=== PATIENT | male | born 1980 | race Two or more races ===

== ENCOUNTER 2022-01-11 16:50 | Emergency (ER) | payer OTHER, SELFPAY ==
--- NOTE | ~2022-01-11 | XR_ITS ---
EXAMINATION: XR CHEST CLINICAL INFORMATION: Shortness of breath COMPARISON: None TECHNIQUE: Frontal view of the chest was obtained. FINDINGS: No significant abnormality is noted involving the heart, lungs, mediastinum, bony thorax or soft tissues. XR/XR chest 1V IMPRESSION: Unremarkable examination.
[2022-01-11 16:53] VITALS: BP 161/87; PULSE 85; RESP 24; TEMP 37; O2SAT 100; BMI 33.5
--- NOTE | 2022-01-11 17:20 | ED_ITS ---
HPI - Nausea/Vomiting/Diarrhea General Chief complaint: Nausea/Vomiting/Diarrhea <Linda Lozoya NP - Last Filed: 01/11/22 17:21> Stated complaint: Vomiting, SOB, Fatigue <Linda Lozoya NP - Last Filed: 01/11/22 17:21> Time Seen by Provider: 01/11/22 21:54 <Linda Lozoya NP - Last Filed: 01/11/22 17:21> Source: patient and family <Deonte Lara MD - Last Filed: 01/11/22 22:32> Mode of arrival: ambulatory <Deonte Lara MD - Last Filed: 01/11/22 22:32> Limitations: no limitations <Deonte Lara MD - Last Filed: 01/11/22 22:32> History of Present Illness HPI Narrative: 41-year-old male who presents emergency department for evaluation of nausea, vomiting, fatigue, body aches and weakness. Patient states he was feeling fine until this morning when he woke up and had simultaneous vomiting and diarrhea. He states that he had multiple episodes of loose, watery stool with no blood in stool. He states that multiple episodes of vomiting and after vomiting multiple times he did notice some bright red blood in his emesis. He denied fever but states that he did have sweats. He denied shaking chills, rhinorrhea or sore throat. He states the last 2 weeks he has had a cough which is nonproductive. He states he feels short of breath. He states that he feels weak. He does have a history of diabetes and he states that his glucose is usually in the 200 range. The patient has not traveled recently. He states that he was on antibiotics in October for a throat infection. <Deonte Lara MD - Last Filed: 01/11/22 22:32> MD elicited complaint: nausea, vomiting and diarrhea <Deonte Lara MD - Last Filed: 01/11/22 22:32> Onset (ago): day(s) (1) <Deonte Lara MD - Last Filed: 01/11/22 22:32> Description of vomiting: watery, bilious and blood-streaked <Deonte Lara MD - Last Filed: 01/11/22 22:32> Description of diarrhea: watery <Deonte Lara MD - Last Filed: 01/11/22 22:32> Associated nausea: Yes <Deonte Lara MD - Last Filed: 01/11/22 22:32> Associated abdominal pain: Yes <Deonte Lara MD - Last Filed: 01/11/22 22:32> Location of pain: diffuse <Deonte Lara MD - Last Filed: 01/11/22 22:32> Pain consistency: intermittent <Deonte Lara MD - Last Filed: 01/11/22 22:32> Severity: moderate <Deonte Lara MD - Last Filed: 01/11/22 22:32> Quality: aching <Deonte Lara MD - Last Filed: 01/11/22 22:32> Exacerbating factors: eating <Deonte Lara MD - Last Filed: 01/11/22 22:32> Relieving factors: none <Deonte Lara MD - Last Filed: 01/11/22 22:32> Associated symptoms: myalgias, cough, malaise, nausea/vomiting and shortness of breath <Deonte Lara MD - Last Filed: 01/11/22 22:32> Related Data Home medications: Previous Rx's Medication Instructions Recorded ondansetron 4 mg disintegrating 4 mg PO Q6-8H PRN nausea and 01/11/22 tablet vomiting #14 tabs <Linda Lozoya NP - Last Filed: 01/11/22 17:21> Allergies/Adverse reactions: Allergies Allergy/AdvReac Type Severity Reaction Status Date / Time No Known Allergies Allergy Verified 01/11/22 16:53 <Linda Lozoya NP - Last Filed: 01/11/22 17:21> Review of Systems Review of Systems: Yes all other systems are reviewed and are negative <Abhishek Lara MD - Last Filed: 01/11/22 22:32> Gastrointestinal: Gastrointestinal: Reports nausea <Deonte Lara MD - Last Filed: 01/11/22 22:32> [facility] Past Medical History [facility] Narrative: Past medical history: Diabetes mellitus, hypertension, hypercholesterolemia, bipolar disorder, ADHD, PTSD, impulse control disorder auditory hallucinations. Past surgical history: None. Social history: He does smoke cigarettes, 1 pack per day times many years. Denies alcohol use. He occasionally smokes marijuana. <Deonte Lara MD - Last Filed: 01/11/22 22:32> Social History Social History: Social History Advance Directives: No Advance Directives Information Provided: No <Linda Lozoya NP - Last Filed: 01/11/22 17:21> Physical Exam Vital Signs: Vital Signs: Last Vital Signs Temp 98.6 F 01/11/22 16:53 Pulse 85 01/11/22 16:53 Resp 24 H 01/11/22 16:53 BP 161/87 H 01/11/22 16:53 Pulse Ox 100 01/11/22 16:53 O2 Del Method 01/11/22 16:53 BMI result Body Mass Index 33.5 <Linda Lozoya NP - Last Filed: 01/11/22 17:21> Vital Signs: Last Vital Signs Temp 98.6 F 01/11/22 16:53 Pulse 85 01/11/22 16:53 Resp 24 H 01/11/22 16:53 BP 161/87 H 01/11/22 16:53 Pulse Ox 100 01/11/22 16:53 O2 Del Method 01/11/22 16:53 BMI result Body Mass Index 33.5 <Deonte Lara MD - Last Filed: 01/11/22 22:32> Const: General: cooperative and no acute distress <Deonte Lara MD - Last Filed: 01/11/22 22:32> Orientation/consciousness: oriented to person and oriented to place <Deonte Lara MD - Last Filed: 01/11/22 22:32> Limitations: no limitations <Deonte Lara MD - Last Filed: 01/11/22 22:32> HEENT: Head: Yes normal to inspection, Yes normocephalic and Yes atraumatic <Deonte Lara MD - Last Filed: 01/11/22 22:32> Ears: external ears normal <Deonte Lara MD - Last Filed: 01/11/22 22:32> General nose exam: Normal external nose present <Deonte Lara MD - Last Filed: 01/11/22 22:32> Face and sinus: Yes normal facial exam <Deonte Lara MD - Last Filed: 01/11/22 22:32> Mouth: Normal oral and palatal mucosa present <Deonte Lara MD - Last Filed: 01/11/22 22:32> Throat: Yes posterior oropharynx normal <Deonte Lara MD - Last Filed: 01/11/22 22:32> Eyes: General: appearance normal, both eyes and all related structures <Deonte Lara MD - Last Filed: 01/11/22 22:32> Pupils: Equal, round and reactive pupils present <Deonte Lara MD - Last Filed: 01/11/22 22:32> Neck: Neck: Yes normal visual inspection, Yes no lymphadenopathy, Yes trachea midline and Yes supple <Deonte Lara MD - Last Filed: 01/11/22 22:32> Chest: Chest palpation & inspection: normal inspection of the chest and normal palpation of entire chest wall <Deonte Lara MD - Last Filed: 01/11/22 22:32> Resp: Effort & Inspection: normal respiratory effort and able to speak in complete sentences <Deonte Lara MD - Last Filed: 01/11/22 22:32> Auscultation: clear to auscultation bilaterally <Deonte Lara MD - Last Filed: 01/11/22 22:32> Cardio: Rate: regular rate <Deonte Lara MD - Last Filed: 01/11/22 22:32> Rhythm: regular rhythm <Deonte Lara MD - Last Filed: 01/11/22 22:32> Heart sounds: S1 normal heart sound present, S2 normal heart sound present and no murmurs <Deonte Lara MD - Last Filed: 01/11/22 22:32> GI: Inspection: Yes normal to inspection <Deonte Lara MD - Last Filed: 01/11/22 22:32> Palpation (GI): Soft to palpation, Tenderness to palpation present (GI) (Mild diffuse tenderness) and no guarding <Deonte Lara MD - Last Filed: 01/11/22 22:32> Auscultation: normal bowel sounds <Deonte Lara MD - Last Filed: 01/11/22 22:32> : General: Yes no CVA tenderness <Deonte Lara MD - Last Filed: 01/11/22 22:32> Back/Spine/Pelvis: Back: no CVA tenderness <Deonte Lara MD - Last Filed: 01/11/22 22:32> Skin: General skin exam: no rashes or lesions noted <Deonte Lara MD - Last Filed: 01/11/22 22:32> Neuro: General: oriented to person and oriented to place <Deonte Lara MD - Last Filed: 01/11/22 22:32> Cranial nerves: Yes CN's II-XII intact bilaterally and Yes Equal, round and reactive pupils present <Deonte Lara MD - Last Filed: 01/11/22 22:32> Cognition (Neuro): normal cognition <Deonte Lara MD - Last Filed: 01/11/22 22:32> Motor exam (neuro): 5/5 motor strength present throughout <Deonte Lara MD - Last Filed: 01/11/22 22:32> Extrem: General: Yes normal to inspection <Deonte Lara MD - Last Filed: 01/11/22 22:32> Psych: Appearance: grossly normal <Deonte Lara MD - Last Filed: 01/11/22 22:32> Speech and movement: Normal speech and movement present <Deonte Lara MD - Last Filed: 01/11/22 22:32> Affect: normal affect <Deonte Lara MD - Last Filed: 01/11/22 22:32> Attitude: cooperative <Deonte Lara MD - Last Filed: 01/11/22 22:32> Thought process: Normal thought process present <Deonte Lara MD - [facility] t Filed: 01/11/22 22:32> Thought content: Normal thought content present <Deonte Lara MD - Last Filed: 01/11/22 22:32> Course Course Course Narrative: This is a rapid medical exam. Deferred HPI, ROS, PE to primary provider. Flu like symptoms including vomiting/diarrhea x 1 day. Will obtain labs, CXR, covid testing. VSS <Linda Lozoya NP - Last Filed: 01/11/22 17:21> This is a rapid medical exam. Deferred HPI, ROS, PE to primary provider. Flu like symptoms including vomiting/diarrhea x 1 day. Will obtain labs, CXR, covid testing. VSS 2229: Course: 41-year-old male with history of diabetes, hypertension, hyperlipidemia and multiple psychiatric diagnoses who presents emergency department for evaluation of nausea, vomiting, diarrhea, shortness of breath, myalgias and malaise which began this morning. Patient reports multiple episodes of vomiting and diarrhea with occasional blood streaks in his emesis. Patient had diffuse abdominal pain and on exam had diffuse abdominal tenderness. Vital signs did reveal an elevated blood pressure of 161 over so 87 and elevated respiratory rate of 24. Patient's laboratory evaluation did reveal an elevated WBC 09096, low sodium 133, low CO2 18, elevated glucose 296. Patient was given Zofran ODT triage with improvement of symptoms. I gave him a 2nd dose of Zofran ODT 4 mg after my evaluation. I did offer to give the patient IV fluid but he states that he is feeling better and he wants to go home and drink Pedialyte therefore he was prescribe Zofran ODT 4 mg every 8 hours as needed for nausea and vomiting. He was given printed and verbal instructions discharged home. <Deonte Lara MD - Last Filed: 01/11/22 22:32> Medications Administered Discontinued Medications Generic Name Dose Route Start Last Admin Trade Name Freq PRN Reason Stop Dose Admin Ondansetron HCl 4 mg 01/11/22 17:19 01/11/22 17:28 Ondansetron Odt 4 Mg Tab.Rapdis TRANSLINGU 01/11/22 17:20 4 mg ONCE ONE Administration <Linda Lozoya NP - Last Filed: 01/11/22 17:21> Medications Administered Discontinued Medications Generic Name Dose Route Start Last Admin Trade Name Caitlin PRN Reason Stop Dose Admin Ondansetron HCl 4 mg 01/11/22 17:19 01/11/22 17:28 Ondansetron Odt 4 Mg Tab.Rapdis TRANSLINGU 01/11/22 17:20 4 mg ONCE ONE Administration <Deonte Lara MD - Last Filed: 01/11/22 22:32> MDM - Nausea/Vomiting/Diarrhea Lab Data Result diagrams: : 01/11/22 17:19 01/11/22 17:19 <Linda Lozoya NP - Last Filed: 01/11/22 17:21> Labs: Lab Results 01/11/22 01/11/22 Range/Units 17:19 17:19 WBC 16.5 H (4.8-10.8) X10*3/uL RBC 5.53 (4.60-5.80) X10*6/uL Hgb 16.1 (14.0-18.0) g/dl Hct 46.3 (42.0-52.0) % MCV 83.7 (80.0-98.0) fL MCH 29.1 (27.0-33.0) pg MCHC 34.8 (31.0-36.0) g/dl RDW 12.7 (11.0-16.0) % Plt Count 303 (160-400) X10*3/uL MPV 9.7 (9.4-12.4) fL Immature Gran % (Auto) 0.4 (0.0-0.4) % Neut % (Auto) 82.6 H (45-73) % Lymph % (Auto) 13.0 L (20-40) % Roberts % (Auto) 3.5 (2-11) % Eos % (Auto) 0.1 (0-4) % Baso % (Auto) 0.4 (0-2) % Lymph # (Auto) 2.2 (1.2-4.9) X10*3/uL Roberts # (Auto) 0.6 (0.1-1.2) X10*3/uL Eos # (Auto) 0.0 (0.0-0.4) X10*3/uL Baso # (Auto) 0.1 (0.0-0.2) X10*3/uL Abs Immat Gran (auto) 0.07 H (0.00-0.03) X10*3/uL Absolute Neuts (auto) 13.6 H (2.0-8.3) x10*3/uL Absolute Nucleated RBC 0.000 (0.0-0.012) X10*3/uL Nucleated RBC % (auto) 0.0 (0.0-0.2) /100WBC Sodium 133 L (135-145) mmol/L Potassium 3.6 (3.3-5.1) mmol/L Chloride 100 (96-108) mmol/L Carbon Dioxide 18 L (22-29) mmol/L Anion Gap 19 (12-20) BUN 16 (9-16) mg/dL Creatinine 0.97 (0.5-1.4) mg/dL Estim Creat Clear Calc 124.4 Estimated GFR > 60 Random Glucose 296 H (60-115) mg/dL Calcium 10.6 H (8.4-10.2) mg/dL Total Bilirubin 0.8 (0.0-1.0) mg/dL Direct Bilirubin 0.2 (0.0-0.5) mg/dL AST 14 (5-37) U/L ALT 22 (0-40) U/L Alkaline Phosphatase 98 (39-117) U/L Total Protein 8.4 H (6.5-8.0) g/dL Albumin 5.1 H (3.5-5.0) g/dL Lipase 32 (8-78) U/L <Linda Lozoya, [employer] - Last Filed: 01/11/22 17:21> Lab Results 01/11/22 01/11/22 Range/Units 17:19 17:19 WBC 16.5 H (4.8-10.8) X10*3/uL RBC 5.53 (4.60-5.80) X10*6/uL Hgb 16.1 (14.0-18.0) g/dl Hct 46.3 (42.0-52.0) % MCV 83.7 (80.0-98.0) fL MCH 29.1 (27.0-33.0) pg MCHC 34.8 (31.0-36.0) g/dl RDW 12.7 (11.0-16.0) % Plt Count 303 (160-400) X10*3/uL MPV 9.7 (9.4-12.4) fL Immature Gran % (Auto) 0.4 (0.0-0.4) % Neut % (Auto) 82.6 H (45-73) % Lymph % (Auto) 13.0 L (20-40) % Roberts % (Auto) 3.5 (2-11) % Eos % (Auto) 0.1 (0-4) % Baso % (Auto) 0.4 (0-2) % Lymph # (Auto) 2.2 (1.2-4.9) X10*3/uL Roberts # (Auto) 0.6 (0.1-1.2) X10*3/uL Eos # (Auto) 0.0 (0.0-0.4) X10*3/uL Baso # (Auto) 0.1 (0.0-0.2) X10*3/uL Abs Immat Gran (auto) 0.07 H (0.00-0.03) X10*3/uL Absolute Neuts (auto) 13.6 H (2.0-8.3) x10*3/uL Absolute Nucleated RBC 0.000 (0.0-0.012) X10*3/uL Nucleated RBC % (auto) 0.0 (0.0-0.2) /100WBC Sodium 133 L (135-145) mmol/L Potassium 3.6 (3.3-5.1) mmol/L Chloride 100 (96-108) mmol/L Carbon Dioxide 18 L (22-29) mmol/L Anion Gap 19 (12-20) BUN 16 (9-16) mg/dL Creatinine 0.97 (0.5-1.4) mg/dL Estim Creat Clear Calc 124.4 Estimated GFR > 60 Random Glucose 296 H (60-115) mg/dL Calcium 10.6 H (8.4-10.2) mg/dL Total Bilirubin 0.8 (0.0-1.0) mg/dL Direct Bilirubin 0.2 (0.0-0.5) mg/dL AST 14 (5-37) U/L ALT 22 (0-40) U/L Alkaline Phosphatase 98 (39-117) U/L Total Protein 8.4 H (6.5-8.0) g/dL Albumin 5.1 H (3.5-5.0) g/dL Lipase 32 (8-78) U/L <Deonte Lara MD - Last Filed: 01/11/22 22:32> Discharge Plan Discharge Clinical Impression: Viral syndrome, Vomiting and diarrhea <Linda Lozoya NP - Last Filed: 01/11/22 17:21> Patient Disposition: Home, Self-Care <Linda Lozoya NP - Last Filed: 01/11/22 17:21> Instructions: Acute Nausea and Vomiting (ED), Viral Syndrome (ED) <Linda Lozoya NP - Last Filed: 01/11/22 17:21> Additional Instructions: You most likely have a virus that is causing your vomiting and diarrhea. Sometimes food poisoning can cause the symptoms as well. Your blood work is consistent with you being dehydrated. Take Zofran ODT 4 mg pills, 1 pill dissolved in your mouth every 8 hours as needed for nausea and vomiting. Increase your fluid intake, drinks small amounts of fluid frequently to try to stay hydrated. Follow-up with your doctor in 2 days. Please return to the emergency department if your symptoms get worse or if you develop any symptoms that are concerning to you. <Linda Lozoya NP - Last Filed: 01/11/22 17:21> Prescriptions: New ondansetron 4 mg tablet,disintegrating 4 mg PO Q6-8H PRN (Reason: nausea and vomiting) Qty: 14 0RF <Linda Lozoya NP - Last Filed: 01/11/22 17:21>
[2022-01-11 17:23] LABS: MANUAL DIFF FLAG NO
[2022-01-11 17:24] LABS: Basophils Absolute Auto 0.1 X10*3/uL (0.0-0.2); Basophils Percent Auto 0.4 % (0-2); Eosinophils Percent Auto 0.1 % (0-4); Hematocrit 46.3 % (42.0-52.0); Hemoglobin 16.1 g/dl (14.0-18.0); Imm Gran Abs Auto 0.07 X10*3/uL (0.00-0.03); Imm Gran Pct Auto 0.4 % (0.0-0.4); Lymphocytes Absolute Auto 2.2 X10*3/uL (1.2-4.9); Mean Corpuscular HGB Conc 34.8 g/dl (31.0-36.0); Mean Corpuscular Hemoglobin 29.1 pg (27.0-33.0); Mean Corpuscular Volume 83.7 fL (80.0-98.0); Mean Platelet Volume 9.7 fL (9.4-12.4); Monocytes Absolute Auto 0.6 X10*3/uL (0.1-1.2); Monocytes Percent Auto 3.5 % (2-11); Neutrophils Absolute Auto 13.6 x10*3/uL (2.0-8.3); Neutrophils Percent Auto 82.6 % (45-73); Platelet Count 303 X10*3/uL (160-400); Red Blood Count 5.53 X10*6/uL (4.60-5.80); Red Cell Distribution Width 12.7 % (11.0-16.0); White Blood Count 16.5 X10*3/uL (4.8-10.8)
[2022-01-11] MEDS: Ondansetron ODT 4 MG TAB.RAPDIS TRANSLINGU ×2 (17:28→22:32)
--- NOTE | 2022-01-11 17:28 | PC.NURSE ---
pt medicated per order
[2022-01-11 17:41] LABS: Alanine Aminotransferase 22 U/L (0-40); Albumin Level 5.1 g/dL (3.5-5.0); Alkaline Phosphatase 98 U/L (39-117); Anion Gap 19 (12-20); Aspartate Amino Transferase 14 U/L (5-37); Bilirubin Direct 0.2 mg/dL (0.0-0.5); Bilirubin Total 0.8 mg/dL (0.0-1.0); Blood Urea Nitrogen 16 mg/dL (9-16); Calcium 10.6 mg/dL (8.4-10.2); Carbon Dioxide 18 mmol/L (22-29); Chloride 100 mmol/L (96-108); Creatinine Clr Calc Pharmacy 124.4; Estimated Glomerular Filt Rate > 60; Glucose Random 296 mg/dL (60-115); Lipase 32 U/L (8-78); Potassium 3.6 mmol/L (3.3-5.1); Sodium 133 mmol/L (135-145); Total Protein 8.4 g/dL (6.5-8.0)
[2022-01-11 22:22] LABS: Influenza A PCR NEGATIVE (Negative); Influenza B PCR NEGATIVE (Negative); Resp Syncy Virus RNA Qual PCR NEGATIVE (Negative); SARS COV2 PCR INHOUSE NEGATIVE (Negative)
--- NOTE | 2022-01-11 22:41 | PC.NURSE ---
Pt. sitting in recliner chair. Pt. reports feeling better and is joking with his partner. No distress noted. Medicated per MAR and dc'd pt.
== END 2022-01-11 22:44 | disposition home or self-care (01) ==
PROVIDERS: Emergency Provider Emergency Medicine Emergency Medical Services; PCP Nurse Practitioner Family
DX: B34.9 Viral infection, unspecified (principal); R11.2 Nausea with vomiting, unspecified; R19.7 Diarrhea, unspecified; Z20.822 Contact with and (suspected) exposure to COVID-19; E11.9 Type 2 diabetes mellitus without complications; I10 Essential (primary) hypertension; E78.5 Hyperlipidemia, unspecified
CPT/HCPCS: 0241U; 36415; 71045; 80048; 80076; 83690; 85025; 99283

== ENCOUNTER 2023-10-05 22:29 | Emergency (ER) | payer OTHER, SELFPAY ==
[2023-10-05 22:31] VITALS: BP 158/93; PULSE 100; RESP 20; TEMP 37.2; O2SAT 93; BMI 32.4
[2023-10-05 23:05] LABS: MANUAL DIFF FLAG NO
[2023-10-05 23:07] LABS: Basophils Absolute Auto 0.1 X10*3/uL (0.0-0.2); Basophils Percent Auto 0.4 % (0-2); Eosinophils Percent Auto 0.1 % (0-4); Hematocrit 45.8 % (42.0-52.0); Imm Gran Abs Auto 0.07 X10*3/uL (0.00-0.03); Imm Gran Pct Auto 0.4 % (0.0-0.4); Lymphocytes Absolute Auto 1.6 X10*3/uL (1.2-4.9); Lymphocytes Percent Auto 9.2 % (20-40); Mean Corpuscular HGB Conc 34.9 g/dl (31.0-36.0); Mean Corpuscular Hemoglobin 28.7 pg (27.0-33.0); Mean Corpuscular Volume 82.1 fL (80.0-98.0); Mean Platelet Volume 10.2 fL (9.4-12.4); Monocytes Absolute Auto 0.5 X10*3/uL (0.1-1.2); Monocytes Percent Auto 3.1 % (2-11); Neutrophils Absolute Auto 14.7 x10*3/uL (2.0-8.3); Neutrophils Percent Auto 86.8 % (45-73); Platelet Count 284 X10*3/uL (160-400); Red Blood Count 5.58 X10*6/uL (4.60-5.80); Red Cell Distribution Width 12.9 % (11.0-16.0)
[2023-10-05 23:48] LABS: Alanine Aminotransferase 18 U/L (0-40); Alkaline Phosphatase 90 U/L (39-117); Anion Gap 20 (12-20); Aspartate Amino Transferase 12 U/L (5-37); Bilirubin Direct 0.2 mg/dL (0.0-0.5); Bilirubin Total 0.8 mg/dL (0.0-1.0); Blood Urea Nitrogen 15 mg/dL (9-16); Calcium 10.8 mg/dL (8.4-10.2); Carbon Dioxide 22 mmol/L (22-29); Chloride 94 mmol/L (96-108); Creatinine Clr Calc Pharmacy 80.8; Estimated Glomerular Filt Rate 53; Ethanol < 10 mg/dL; Glucose Random 523 mg/dL (60-115); Potassium 3.5 mmol/L (3.3-5.1); Sodium 132 mmol/L (135-145); Total Protein 8.8 g/dL (6.5-8.0)
[2023-10-06 00:06] LABS: COVID-19 Test Negative (Negative); IDNOW Serial# 08D9AD1C; IDNOW Serial# 152EDE1D; Influenza A Negative (Negative); Influenza B2 Negative (Negative)
--- NOTE | 2023-10-06 00:08 | PC.NURSE ---
pt from home, a&ox4, respirations even and unlabored. pt reports increased nausea and vomiting starting this morning with poor PO intake. pt reports he is diabetic but ran out of strips to be able to test sugars at home. pt reports he uses insulin. pt POC 560. aware.
[2023-10-06 00:10] LABS: Glucose, Whole Blood 560 mg/dL (60-115)
--- NOTE | 2023-10-06 00:16 | ED.GENADULT ---
HPI - General Adult General Chief complaint: General Medical Stated complaint: vomiting Time Seen by Provider: 10/06/23 00:10 Source: patient and family Mode of arrival: ambulatory Limitations: no limitations History of Present Illness ED Provider: Dr. Pena HPI narrative: Patient had been vomiting all day and could not hold down anything not even fluids Onset (ago): hour(s) Severity: moderate Related Data Previous Rx's ?Medication ?Instructions ?Recorded ondansetron 4 mg disintegrating 4 mg PO Q6-8H PRN nausea and 01/11/22 tablet vomiting #14 tabs ondansetron 4 mg disintegrating 4 mg PO Q8H 4 days #12 tabs 10/06/23 tablet Allergies Allergy/AdvReac Type Severity Reaction Status Date / Time No Known Allergies Allergy Verified 10/05/23 22:34 Review of Systems Review of Systems: Yes all other systems are reviewed and are negative Neurologic: Denies Sensory deficit (Neuro) [facility], [facility] Social History Social History Alcohol intake: current Alcohol intake frequency: holidays/special occasions only Smoked in Last 30 Days: Yes Use of substances other than those prescribed or required for medical reasons: Yes Substance Use Type: Marijuana Advance Directives: No Advance Directives Information Provided: No Physical Exam ED Vital Signs: Vital Signs - 24 hr 10/05/23 22:31 10/06/23 02:25 Temperature 98.9 F 98.1 F Pulse Rate 100 89 Respiratory Rate 20 16 Blood Pressure 158/93 H 114/67 Pulse Oximetry 93 97 Oxygen Delivery Method Room Air Room Air BMI result Body Mass Index 32.4 Const General: healthy appearing Nutritional Appearance: average body habitus Orientation/consciousness: oriented to person and patient oriented x3 Limitations: no limitations HENMT Other: very dry oral mucosa Head: Yes normal to inspection Ears: external ears normal General nose exam: Normal external nose present Throat: Yes posterior oropharynx normal Eyes General: appearance normal, both eyes and all related structures Neck Neck: Yes normal visual inspection Chest Chest palpation & inspection: normal inspection of the chest Resp Auscultation: clear to auscultation bilaterally Cardio Jugular venous distension: no JVD Rate: regular rate Rhythm: regular rhythm Heart sounds: S1 normal heart sound present and S2 normal heart sound present GI Inspection: Yes normal to inspection Palpation (GI): Soft to palpation, nontender and No hepatosplenomegaly present Auscultation: normal bowel sounds General: Yes no CVA tenderness Back/Spine/Pelvis Back: no CVA tenderness Skin Other: old cutting scars on arms Neuro General: oriented to person and patient oriented x3 Cranial nerves: Yes CN's II-XII intact bilaterally Motor exam (neuro): 5/5 motor strength present throughout Sensory Exam: No Sensory deficit (Neuro) Extrem General: Yes normal to inspection Psych Appearance: grossly normal Course Reevaluation(s) Reevaluation #1: sugar improved patient tolerating liquids will dc home Time: 03:59 Medications Administered Discontinued Medications Generic Name Dose Route Start Last Admin Trade Name Dieterq PRN Reason Stop Dose Admin Sodium Chloride 1,000 mls @ 999 mls/hr 10/06/23 00:15 10/06/23 02:44 Ns IVCONT 10/06/23 02:15 Infused .Q1H1M BENITA Infusion Insulin Human Lispro 10 unit 10/06/23 00:15 10/06/23 00:48 Insulin Lispro 100 Unit/Ml 3 Ml Vial SUBCUT 10/06/23 00:16 10 unit ONCE ONE Administration Insulin Human Lispro 6 unit 10/06/23 02:42 10/06/23 02:50 Insulin Lispro 100 Unit/Ml 3 Ml Vial SUBCUT 10/06/23 02:43 6 unit ONCE ONE Administration Ondansetron HCl 4 mg 10/06/23 00:15 10/06/23 00:48 Ondansetron Hcl 4 Mg/2 Ml Vial IVPUSH 10/06/23 00:16 4 mg ONCE ONE Administration Medical Decision Making Differential Diagnosis Differential Diagnoses: The differential diagnosis associated with the presentation includes (DKA, dehydration, hyperglycemia nonketotic, cyclical vomiting, gastroparesis) Admission/Observation Consideration of admission/observation: Escalation of care including admission/observation considered (upon arrival patient considered for admission) Lab Data MDM Lab Attestation statement: I reviewed the patient's lab results. 10/05/23 22:58 10/05/23 22:58 Labs: Lab Results 10/05/23 10/06/23 10/06/23 Range/Units 22:58 00:07 00:57 WBC 17.0 H (4.8-10.8) X10*3/uL RBC 5.58 (4.60-5.80) X10*6/uL Hgb 16.0 (14.0-18.0) g/dl Hct 45.8 (42.0-52.0) % MCV 82.1 (80.0-98.0) fL MCH 28.7 (27.0-33.0) pg MCHC 34.9 (31.0-36.0) g/dl RDW 12.9 (11.0-16.0) % Plt Count 284 (160-400) X10*3/uL MPV 10.2 (9.4-12.4) fL Immature Gran % (Auto) 0.4 (0.0-0.4) % Neut % (Auto) 86.8 H (45-73) % Lymph % (Auto) 9.2 L (20-40) % Andrews % (Auto) 3.1 (2-11) % Eos % (Auto) 0.1 (0-4) % Baso % (Auto) 0.4 (0-2) % Lymph # (Auto) 1.6 (1.2-4.9) X10*3/uL Andrews # (Auto) 0.5 (0.1-1.2) X10*3/uL Eos # (Auto) 0.0 (0.0-0.4) X10*3/uL Baso # (Auto) 0.1 (0.0-0.2) X10*3/uL Abs Immat Gran (auto) 0.07 H (0.00-0.03) X10*3/uL Absolute Neuts (auto) 14.7 H (2.0-8.3) x10*3/uL Absolute Nucleated RBC 0.000 (0.0-0.012) X10*3/uL Nucleated RBC % (auto) 0.0 (0.0-0.2) /100WBC Sodium 132 L (135-145) mmol/L Potassium 3.5 (3.3-5.1) mmol/L Chloride 94 L (96-108) mmol/L Carbon Dioxide 22 (22-29) mmol/L Anion Gap 20 (12-20) BUN 15 (9-16) mg/dL Creatinine 1.44 H (0.5-1.4) mg/dL Estim Creat Clear Calc 80.8 Estimated GFR 53 POC Glucose 560 H* (60-115) mg/dL Random Glucose 523 H* (60-115) mg/dL Calcium 10.8 H (8.4-10.2) mg/dL Total Bilirubin 0.8 (0.0-1.0) mg/dL Direct Bilirubin 0.2 (0.0-0.5) mg/dL AST 12 (5-37) U/L ALT 18 (0-40) U/L Alkaline Phosphatase 90 (39-117) U/L Total Protein 8.8 H (6.5-8.0) g/dL Albumin 5.0 (3.5-5.0) g/dL Urine Color Yellow Urine Appearance Clear Urine pH 5.5 (5.0-9.0) Ur Specific [place] >= 1.030 H (1.005-1.025) Urine Protein 30 (1+) H (Neg-Trace) mg/dL Urine Glucose (UA) >=1000 H (Negative) mg/dL Urine Ketones 80 (Negative) mg/dL Urine Blood Negative (Negative) Urine Nitrite Negative (Negative) Ur Leukocyte Esterase Negative (Negative) Urine RBC 0-2 (0-2) /HPF Urine WBC 0-5 (0-5) /HPF Ur Squamous Epith Cells 0-2 (0-2) /HPF Urine Bacteria None Seen (None Seen) Hyaline Casts 0-2 (0-2) /LPF Urine Opiates Screen Not Detected (Not Detect) Ur Buprenorphine Scrn Not Detected (Not Detect) ng/mL Ur Oxycodone Screen Not Detected (Not Detect) ng/mL Urine Methadone Screen Not Detected (Not Detect) ng/mL Urine Fentanyl Screen Not Detected (Not Detect) Ur Barbiturates Screen Not Detected (Not Detect) Ur Phencyclidine Scrn Not Detected (Not Detect) Ur Amphetamines Screen Not Detected (Not Detect) U Benzodiazepines Scrn Not Detected (Not Detect) Urine Cocaine Screen Not Detected (Not Detect) U Marijuana (THC) Screen POSITIVE H (Not Detect) Ethyl Alcohol < 10 mg/dL COVID-19 (ROHAN) Negative (Negative) COVID-19 Clin Com See Note Influenza Type A (MERARY) Negative (Negative) Influenza Type B (MERARY) Negative (Negative) Influenza A & B Note See Note 10/06/23 10/06/23 10/06/23 Range/Units 01:32 02:06 02:38 WBC (4.8-10.8) X10*3/uL RBC (4.60-5.80) X10*6/uL Hgb (14.0-18.0) g/dl Hct (42.0-52.0) % MCV (80.0-98.0) fL MCH (27.0-33.0) pg MCHC (31.0-36.0) g/dl RDW (11.0-16.0) % Plt Count (160-400) X10*3/uL MPV (9.4-12.4) fL Immature Gran % (Auto) (0.0-0.4) % Neut % (Auto) (45-73) % Lymph % (Auto) (20-40) % Andrews % (Auto) (2-11) % Eos % (Auto) (0-4) % Baso % (Auto) (0-2) % Lymph # (Auto) (1.2-4.9) X10*3/uL Andrews # (Auto) (0.1-1.2) X10*3/uL Eos # (Auto) (0.0-0.4) X10*3/uL Baso # (Auto) (0.0-0.2) X10*3/uL Abs Immat Gran (auto) (0.00-0.03) X10*3/uL Absolute Neuts (auto) (2.0-8.3) x10*3/uL Absolute Nucleated RBC (0.0-0.012) X10*3/uL Nucleated RBC % (auto) (0.0-0.2) /100WBC Sodium (135-145) mmol/L Potassium (3.3-5.1) mmol/L Chloride (96-108) mmol/L Carbon Dioxide (22-29) mmol/L Anion Gap (12-20) BUN (9-16) mg/dL Creatinine (0.5-1.4) mg/dL Estim Creat Clear Calc Estimated GFR POC Glucose 404 H* 343 H 347 H (60-115) mg/dL Random Glucose (60-115) mg/dL Calcium (8.4-10.2) mg/dL Total Bilirubin (0.0-1.0) mg/dL Direct Bilirubin (0.0-0.5) mg/dL AST (5-37) U/L ALT (0-40) U/L Alkaline Phosphatase (39-117) U/L Total Protein (6.5-8.0) g/dL Albumin (3.5-5.0) g/dL Urine Color Urine Appearance Urine pH (5.0-9.0) Ur Specific [place] (1.005-1.025) Urine Protein (Neg-Trace) mg/dL Urine Glucose (UA) (Negative) mg/dL Urine Ketones (Negative) mg/dL Urine Blood (Negative) Urine Nitrite (Negative) Ur Leukocyte Esterase (Negative) Urine RBC (0-2) /HPF Urine WBC (0-5) /HPF Ur Squamous Epith Cells (0-2) /HPF Urine Bacteria (None Seen) Hyaline Casts (0-2) /LPF Urine Opiates Screen (Not Detect) Ur Buprenorphine Scrn (Not Detect) ng/mL Ur Oxycodone Screen (Not Detect) ng/mL Urine Methadone Screen (Not Detect) ng/mL Urine Fentanyl Screen (Not Detect) Ur Barbiturates Screen (Not Detect) Ur Phencyclidine Scrn (Not Detect) Ur Amphetamines Screen (Not Detect) U Benzodiazepines Scrn (Not Detect) Urine Cocaine Screen (Not Detect) U Marijuana (THC) Screen (Not Detect) Ethyl Alcohol mg/dL COVID-19 (ROHAN) (Negative) COVID-19 Clin Com Influenza Type A (MERARY) (Negative) Influenza Type B (MERARY) (Negative) Influenza A & B Note 10/06/23 10/06/23 Range/Units 03:13 03:40 WBC (4.8-10.8) X10*3/uL RBC (4.60-5.80) X10*6/uL Hgb (14.0-18.0) g/dl Hct (42.0-52.0) % MCV (80.0-98.0) fL MCH (27.0-33.0) pg MCHC (31.0-36.0) g/dl RDW (11.0-16.0) % Plt Count (160-400) X10*3/uL MPV (9.4-12.4) fL Immature Gran % (Auto) (0.0-0.4) % Neut % (Auto) (45-73) % Lymph % (Auto) (20-40) % Andrews % (Auto) (2-11) % Eos % (Auto) (0-4) % Baso % (Auto) (0-2) % Lymph # (Auto) (1.2-4.9) X10*3/uL Andrews # (Auto) (0.1-1.2) X10*3/uL Eos # (Auto) (0.0-0.4) X10*3/uL Baso # (Auto) (0.0-0.2) X10*3/uL Abs Immat Gran (auto) (0.00-0.03) X10*3/uL Absolute Neuts (auto) (2.0-8.3) x10*3/uL Absolute Nucleated RBC (0.0-0.012) X10*3/uL Nucleated RBC % (auto) (0.0-0.2) /100WBC Sodium (135-145) mmol/L Potassium (3.3-5.1) mmol/L Chloride (96-108) mmol/L Carbon Dioxide (22-29) mmol/L Anion Gap (12-20) BUN (9-16) mg/dL Creatinine (0.5-1.4) mg/dL Estim Creat Clear Calc Estimated GFR POC Glucose 317 H 282 H (60-115) mg/dL Random Glucose (60-115) mg/dL Calcium (8.4-10.2) mg/dL Total Bilirubin (0.0-1.0) mg/dL Direct Bilirubin (0.0-0.5) mg/dL AST (5-37) U/L ALT (0-40) U/L Alkaline Phosphatase (39-117) U/L Total Protein (6.5-8.0) g/dL Albumin (3.5-5.0) g/dL Urine Color Urine Appearance Urine pH (5.0-9.0) Ur Specific [place] (1.005-1.025) Urine Protein (Neg-Trace) mg/dL Urine Glucose (UA) (Negative) mg/dL Urine Ketones (Negative) mg/dL Urine Blood (Negative) Urine Nitrite (Negative) Ur Leukocyte Esterase (Negative) Urine RBC (0-2) /HPF Urine WBC (0-5) /HPF Ur Squamous Epith Cells (0-2) /HPF Urine Bacteria (None Seen) Hyaline Casts (0-2) /LPF Urine Opiates Screen (Not Detect) Ur Buprenorphine Scrn (Not Detect) ng/mL Ur Oxycodone Screen (Not Detect) ng/mL Urine Methadone Screen (Not Detect) ng/mL Urine Fentanyl Screen (Not Detect) Ur Barbiturates Screen (Not Detect) Ur Phencyclidine Scrn (Not Detect) Ur Amphetamines Screen (Not Detect) U Benzodiazepines Scrn (Not Detect) Urine Cocaine Screen (Not Detect) U Marijuana (THC) Screen (Not Detect) Ethyl Alcohol mg/dL COVID-19 (ROHAN) (Negative) COVID-19 Clin Com Influenza Type A (MERARY) (Negative) Influenza Type B (MERARY) (Negative) Influenza A & B Note Prescription Management I considered prescription management with: Antibiotic (no evidence of UTI) Chronic Conditions Patient?s care impacted by: Diabetes and Hypertension Social Determinants Patient?s care significantly limited by Social Determinants of Health including: Low income Discharge Plan Discharge Clinical Impression: Acute hyperglycemia, Acute dehydration, Vomiting Patient Disposition: Home, Self-Care Instructions: Dehydration (ED), Acute Nausea and Vomiting (ED), Diabetic Hyperglycemia (ED) Prescriptions: New ondansetron 4 mg tablet,disintegrating 4 mg PO Q8H 4 Days Qty: 12 0RF No Action ondansetron 4 mg tablet,disintegrating 4 mg PO Q6-8H PRN (Reason: nausea and vomiting) Qty: 14 0RF Referrals: Physician,Unknown J [Primary Care Provider] - 3 days Print Language: Divehi
[2023-10-06] MEDS: Insulin Lispro 100 UNIT/ML 3 ML VIAL 10 UNIT SUBCUT (00:48)
[2023-10-06] MEDS: ondansetron HCL 4 MG/2 ML VIAL IVPUSH (00:48)
[2023-10-06] MEDS: 0.9 % Sodium Chloride 1,000 ML 999 ML IVCONT ×2 (00:48→01:43)
--- NOTE | 2023-10-06 00:56 | PC.NURSE ---
pt medicated per mar for nausea and medicated with insulin. 20G placed in left forearm.
[2023-10-06 01:05] LABS: Appearance Urine Clear; Color Urine Yellow; Glucose Urine UA >=1000 mg/dL (Negative); Leukocyte Esterase Urine Negative (Negative); Nitrite Urine Negative (Negative); PH 5.5 (5.0-9.0); Specific Gravity - Urine >= 1.030 (1.005-1.025); UMIC TRIGGER UACC YES; Urine Blood Negative (Negative); Urine Ketones 80 mg/dL (Negative); Urine Protein 30 (1+) mg/dL (Neg-Trace)
[2023-10-06 01:09] LABS: Bacteria Urine None Seen (None Seen); Hyaline Casts Urine 0-2 /LPF (0-2); RBC Urine 0-2 /HPF (0-2); Squamous Epithelial Cell Urine 0-2 /HPF (0-2); WBC Urine 0-5 /HPF (0-5)
[2023-10-06 01:19] LABS: Amphetamine Screen Urine Not Detected (Not Detect); Barbiturates, Urine Not Detected (Not Detect); Benzodiazepines Screen Urine Not Detected (Not Detect); Buprenorphine Scr Not Detected (Not Detect); Cannabinoid Screen Urine POSITIVE (Not Detect); Cocaine Screen Urine Not Detected (Not Detect); Fentanyl, urine Not Detected (Not Detect); Methadone Screen, Urine Not Detected (Not Detect); Opiate Screen Urine Not Detected (Not Detect); Oxycodone Screen Urine Not Detected (Not Detect); Phencyclidine Screen Urine Not Detected (Not Detect)
[2023-10-06 01:36] LABS: Glucose, Whole Blood 404 mg/dL (60-115)
--- NOTE | 2023-10-06 02:08 | PC.NURSE ---
pt given PO fluids to attempt a toleration trial at this time. pt tolerating well.
[2023-10-06 02:09] LABS: Glucose, Whole Blood 343 mg/dL (60-115)
[2023-10-06 02:25] VITALS: BP 114/67; PULSE 89; RESP 16; TEMP 36.7; O2SAT 97
[2023-10-06 02:42] LABS: Glucose, Whole Blood 347 mg/dL (60-115)
[2023-10-06] MEDS: Insulin Lispro 100 UNIT/ML 3 ML VIAL 6 UNIT SUBCUT (02:50)
[2023-10-06 03:17] LABS: Glucose, Whole Blood 317 mg/dL (60-115)
[2023-10-06 03:44] LABS: Glucose, Whole Blood 282 mg/dL (60-115)
[2023-10-06 04:15] LABS: Glucose, Whole Blood 258 mg/dL (60-115)
[2023-10-06 04:21] VITALS: BP 161/78; PULSE 96; RESP 14; TEMP 37.2; O2SAT 94
[2023-10-06 04:22] VITALS: BP 161/78; PULSE 96; RESP 14; TEMP 37.2; O2SAT 94
== END 2023-10-06 04:23 | disposition home or self-care (01) ==
PROVIDERS: Emergency Provider Emergency Medicine
DX: R11.2 Nausea with vomiting, unspecified (principal); R73.9 Hyperglycemia, unspecified; E86.0 Dehydration; Z79.899 Other long term (current) drug therapy; Z11.52 Encounter for screening for COVID-19
CPT/HCPCS: 36415; 80048; 80076; 80307; 81001; 82947; 85025; 87502; 87635; 96361; 96374; 99284; J2405

== ENCOUNTER 2023-12-11 09:41 | Inpatient (IN) | payer OTHER, SELFPAY ==
[2023-12-11 09:47] VITALS: BP 158/91; PULSE 98; RESP 20; TEMP 36.6; O2SAT 98; BMI 34.7
[2023-12-11 10:37] LABS: MANUAL DIFF FLAG NO
[2023-12-11 10:40] LABS: Appearance Urine Clear; Color Urine Yellow; Glucose Urine UA >=1000 mg/dL (Negative); Leukocyte Esterase Urine Negative (Negative); Nitrite Urine Negative (Negative); Specific Gravity - Urine >= 1.030 (1.005-1.025); UMIC TRIGGER UACC YES; Urine Blood Negative (Negative); Urine Ketones 40 mg/dL (Negative); Urine Protein Trace mg/dL (Neg-Trace)
[2023-12-11 10:41] LABS: Basophils Absolute Auto 0.1 X10*3/uL (0.0-0.2); Basophils Percent Auto 0.5 % (0-2); Eosinophils Absolute Auto 0.4 X10*3/uL (0.0-0.4); Eosinophils Percent Auto 3.5 % (0-4); Hemoglobin 14.7 g/dl (14.0-18.0); Imm Gran Abs Auto 0.04 X10*3/uL (0.00-0.03); Imm Gran Pct Auto 0.4 % (0.0-0.4); Lymphocytes Absolute Auto 2.3 X10*3/uL (1.2-4.9); Lymphocytes Percent Auto 20.2 % (20-40); Mean Corpuscular HGB Conc 34.2 g/dl (31.0-36.0); Mean Corpuscular Hemoglobin 29.3 pg (27.0-33.0); Mean Corpuscular Volume 85.7 fL (80.0-98.0); Mean Platelet Volume 9.8 fL (9.4-12.4); Monocytes Percent Auto 8.7 % (2-11); Neutrophils Absolute Auto 7.6 x10*3/uL (2.0-8.3); Neutrophils Percent Auto 66.7 % (45-73); Platelet Count 273 X10*3/uL (160-400); Red Blood Count 5.02 X10*6/uL (4.60-5.80); Red Cell Distribution Width 13.2 % (11.0-16.0); White Blood Count 11.3 X10*3/uL (4.8-10.8)
[2023-12-11 10:44] LABS: Bacteria Urine None Seen (None Seen); Hyaline Casts Urine 0-2 /LPF (0-2); RBC Urine 0-2 /HPF (0-2); Squamous Epithelial Cell Urine 0-2 /HPF (0-2); WBC Urine 0-5 /HPF (0-5)
[2023-12-11 10:47] LABS: Lithium < 0.10 mmol/L (0.60-1.20)
[2023-12-11 10:49] LABS: Amphetamine Screen Urine Not Detected (Not Detect); Barbiturates, Urine Not Detected (Not Detect); Benzodiazepines Screen Urine Not Detected (Not Detect); Buprenorphine Scr Not Detected (Not Detect); Cannabinoid Screen Urine POSITIVE (Not Detect); Cocaine Screen Urine Not Detected (Not Detect); Fentanyl, urine Not Detected (Not Detect); Methadone Screen, Urine Not Detected (Not Detect); Opiate Screen Urine Not Detected (Not Detect); Oxycodone Screen Urine Not Detected (Not Detect); Phencyclidine Screen Urine Not Detected (Not Detect)
[2023-12-11 10:58] LABS: Alanine Aminotransferase 22 U/L (0-40); Albumin Level 4.5 g/dL (3.5-5.0); Alkaline Phosphatase 88 U/L (39-117); Anion Gap 18 (12-20); Aspartate Amino Transferase 20 U/L (5-37); Bilirubin Total 0.7 mg/dL (0.0-1.0); Blood Urea Nitrogen 12 mg/dL (9-16); Calcium 9.8 mg/dL (8.4-10.2); Carbon Dioxide 21 mmol/L (22-29); Chloride 100 mmol/L (96-108); Creatinine Clr Calc Pharmacy 89.6; Estimated Glomerular Filt Rate > 60; Ethanol < 10 mg/dL; Glucose Random 440 mg/dL (60-115); Potassium 3.8 mmol/L (3.3-5.1); Sodium 135 mmol/L (135-145)
--- NOTE | 2023-12-11 11:12 | ED.GENADULT ---
HPI - General Adult General Chief complaint: Psychiatric Symptoms Stated complaint: crisis Time Seen by Provider: 12/11/23 11:08 Source: patient Mode of arrival: ambulatory Limitations: no limitations History of Present Illness ED Provider: Kelsie Alegria PA-C HPI narrative: Patient is a 43 year old assigned male at with a history of DM, bipolar disorder, PTSD, and schizophrenia presenting to the emergency department today with auditory hallucinations. Patient states that he has been hearing voices lately telling him to harm himself. Patient denies any dizziness, lightheadedness, abdominal pain, nausea, vomiting, fever, chills, blurry vision, double vision, loss of vision, chest pain, difficulty breathing, shortness of breath, back pain, night sweats, pain with urination, increased urinary frequency, increased urinary urgency, blood in his urine or stool, syncope or a near syncopal episode, recent trauma or falls, bowel incontinence, bladder incontinence, or any other complaints at this time. Onset (ago): day(s) Relieving factors: none Exacerbating factors: none Associated symptoms: denies other symptoms Treatments prior to arrival: none Related Data Home Medications ?Medication ?Instructions ?Recorded ?Confirmed hydrochlorothiazide 25 mg tablet 25 mg PO DAILY 12/11/23 12/11/23 hydroxyzine pamoate 25 mg capsule 25 mg PO BEDTIME 12/11/23 12/11/23 hydroxyzine pamoate 50 mg capsule 100 mg PO BEDTIME 12/11/23 12/11/23 insulin glargine 100 unit/mL (3 40 unit subcut BEDTIME 12/11/23 12/11/23 mL) subcutaneous pen (Lantus Solostar U-100 Insulin) lithium carbonate 300 mg capsule 900 mg PO BEDTIME 12/11/23 12/11/23 Allergies Allergy/AdvReac Type Severity Reaction Status Date / Time No Known Allergies Allergy Verified 12/11/23 09:54 Review of Systems Constitutional: Constitutional: Reports no additional constitutional complaints, Denies chills, Denies fever(s) and Denies night sweats Eyes: Eyes: Reports no additional eye complaints, Denies blurry vision, Denies change in vision, Denies diplopia, Denies eye discharge, Denies loss of vision and Denies eye pain ENT: Denies dizziness Cardiovascular: Cardiovascular: Reports no additional cardiovascular complaints, Denies chest pain, Denies lightheadedness, Denies Loss of Consciousness and Denies dyspnea Respiratory: Respiratory: Reports no additional respiratory complaints and Denies dyspnea Gastrointestinal: Gastrointestinal: Reports no additional gastrointestinal complaints, Denies abdominal pain, Denies melena, Denies hematochezia, Denies change in bowel habits and Denies change in stool character Genitourinary: Genitourinary: Reports no additional male genitourinary complaints, Denies hematuria, Denies oliguria, Denies difficulty urinating, Denies dysuria, Denies urinary frequency, Denies urinary hesitancy, Denies urinary incontinence and Denies urinary urgency Musculoskeletal: Musculoskeletal: Reports no additional musculoskeletal complaints, Denies numbness and Denies tingling Neurologic: Denies dizziness, Denies loss of vision, Denies numbness and Denies tingling Psychiatric: Psychiatric: Reports auditory hallucinations, Denies homicidal ideation and Reports suicidal ideation Endocrine: Endocrine: Reports no additional endocrine complaints Hematologic/Lymphatic: Hematologic/Lymphatic: Reports no additional hematologic/lymphatic complaints Allergic/Immunologic: Allergic/Immunologic: Reports no additional allergic/immunologic complaints PMFSH Past Medical History Attestation statement: The following information was validated with the patient. Source: old records reviewed and nursing notes reviewed Social History Social History Alcohol intake: current Alcohol intake frequency: holidays/special occasions only Smoked in Last 30 Days: Yes Use of substances other than those prescribed or required for medical reasons: Yes Substance Use Type: Marijuana Substance Use Frequency: Chronic Longstanding Advance Directives: No Advance Directives Information Provided: Yes Do you have a plan to hurt others: No Plan Physical Exam ED Vital Signs: Vital Signs - 24 hr 12/11/23 09:47 12/11/23 12:20 Temperature 98 F Pulse Rate 98 Respiratory Rate 20 16 Blood Pressure 158/91 H Pulse Oximetry 98 Oxygen Delivery Method Room Air BMI result Body Mass Index 34.7 Const General: cooperative, no acute distress, alert and awake Nutritional Appearance: well nourished Orientation/consciousness: patient oriented x3 Limitations: no limitations HENMT Head: Yes normal to inspection and Yes atraumatic Ears: hearing grossly normal bilaterally and external ears normal General nose exam: Normal external nose present, no nasal discharge noted and no epistaxis Face and sinus: Yes normal facial exam, No abrasion and No laceration Mouth: Normal oral and palatal mucosa present, no drooling and no muffled voice Eyes General: appearance normal, both eyes and all related structures Periorbital: periorbital findings normal Eyelids: Yes eyelids normal Conjunctivae: conjunctivae normal Pupils: Equal, round and reactive pupils present EOM: EOMs intact bilaterally Neck Neck: Yes normal visual inspection, Yes full ROM and Yes no lymphadenopathy Chest Chest palpation & inspection: normal inspection of the chest Resp Effort & Inspection: normal respiratory effort and able to speak in complete sentences GI Inspection: Yes normal to inspection Neuro General: patient oriented x3 and moves all extremities Cranial nerves: Yes Equal, round and reactive pupils present Cognition (Neuro): normal cognition Extrem General: Yes normal to inspection, Yes full ROM and Yes capillary refill normal Psych Appearance: grossly normal Mental Status: mental status grossly normal Affect: normal affect Attitude: cooperative Thought process: Normal thought process present Thought content: Normal thought content present Insight: Good insight present (Psych) Medications Administered Discontinued Medications Generic Name Dose Route Start Last Admin Trade Name Freq PRN Reason Stop Dose Admin Insulin Human Lispro 10 unit 12/11/23 11:28 12/11/23 11:47 Insulin Lispro 100 Unit/Ml 3 Ml Vial SUBCUT 12/11/23 11:29 10 unit ONCE ONE Administration Medical Decision Making Medical Decision Making MDM Narrative: Patient is a 43 year old assigned male at with a history of DM, bipolar disorder, PTSD, and schizophrenia presenting to the emergency department today with auditory hallucinations. Patient's physical exam was unremarkable. Patient's blood work showed an elevated blood sugar but were otherwise unremarkable. Patient's RSV test was positive. Patient's urine showed no acute process. Patient was seen by the CARE Team who recommended inpatient level of care. Patient was given insulin and a sliding scale will be determined by the pharmacy over the next 24 hours. I explained my physical exam findings as well as all test results to the patient. I answered all questions asked by the patient. Patient verbalized agreement and understanding with this treatment plan and admission. Differential Diagnosis Differential Diagnoses: The differential diagnosis associated with the presentation includes Auditory hallucinations Suicidal ideation Admission/Observation Consideration of admission/observation: Escalation of care including admission/observation considered Patient will be admitted for psychiatric care. Consult Healthcare Provider Management of the patient was discussed with: Behavioral Health Provider (spoke to the CARE team as noted in the MDM Rationale portion of this note.) Lab Data MDM Lab Attestation statement: I reviewed the patient's lab results. My interpretation of these results are in the MDM Rationale portion of this note. 12/11/23 10:31 12/11/23 10:31 Labs: Lab Results 12/11/23 12/11/23 12/11/23 Range/Units 10:30 10:31 11:59 WBC 11.3 H (4.8-10.8) X10*3/uL RBC 5.02 (4.60-5.80) X10*6/uL Hgb 14.7 (14.0-18.0) g/dl Hct 43.0 (42.0-52.0) % MCV 85.7 (80.0-98.0) fL MCH 29.3 (27.0-33.0) pg MCHC 34.2 (31.0-36.0) g/dl RDW 13.2 (11.0-16.0) % Plt Count 273 (160-400) X10*3/uL MPV 9.8 (9.4-12.4) fL Immature Gran % (Auto) 0.4 (0.0-0.4) % Neut % (Auto) 66.7 (45-73) % Lymph % (Auto) 20.2 (20-40) % [place] % (Auto) 8.7 (2-11) % Eos % (Auto) 3.5 (0-4) % Baso % (Auto) 0.5 (0-2) % Lymph # (Auto) 2.3 (1.2-4.9) X10*3/uL [place] # (Auto) 1.0 (0.1-1.2) X10*3/uL Eos # (Auto) 0.4 (0.0-0.4) X10*3/uL Baso # (Auto) 0.1 (0.0-0.2) X10*3/uL Abs Immat Gran (auto) 0.04 H (0.00-0.03) X10*3/uL Absolute Neuts (auto) 7.6 (2.0-8.3) x10*3/uL Absolute Nucleated RBC 0.000 (0.0-0.012) X10*3/uL Nucleated RBC % (auto) 0.0 (0.0-0.2) /100WBC Sodium 135 (135-145) mmol/L Potassium 3.8 (3.3-5.1) mmol/L Chloride 100 (96-108) mmol/L Carbon Dioxide 21 L (22-29) mmol/L Anion Gap 18 (12-20) BUN 12 (9-16) mg/dL Creatinine 1.15 (0.5-1.4) mg/dL Estim Creat Clear Calc 89.6 Estimated GFR > 60 POC Glucose 382 H* (60-115) mg/dL Random Glucose 440 H* (60-115) mg/dL Calcium 9.8 D (8.4-10.2) mg/dL Total Bilirubin 0.7 (0.0-1.0) mg/dL AST 20 (5-37) U/L ALT 22 (0-40) U/L Alkaline Phosphatase 88 (39-117) U/L Total Protein 8.0 (6.5-8.0) g/dL Albumin 4.5 (3.5-5.0) g/dL Urine Color Yellow Urine Appearance Clear Urine pH 6.0 (5.0-9.0) Ur Specific [place] >= 1.030 H (1.005-1.025) Urine Protein Trace (Neg-Trace) mg/dL Urine Glucose (UA) >=1000 H (Negative) mg/dL Urine Ketones 40 (Negative) mg/dL Urine Blood Negative (Negative) Urine Nitrite Negative (Negative) Ur Leukocyte Esterase Negative (Negative) Urine RBC 0-2 (0-2) /HPF Urine WBC 0-5 (0-5) /HPF Ur Squamous Epith Cells 0-2 (0-2) /HPF Urine Bacteria None Seen (None Seen) Hyaline Casts 0-2 (0-2) /LPF Urine Opiates Screen Not Detected (Not Detect) Ur Buprenorphine Scrn Not Detected (Not Detect) ng/mL Ur Oxycodone Screen Not Detected (Not Detect) ng/mL Urine Methadone Screen Not Detected (Not Detect) ng/mL Urine Fentanyl Screen Not Detected (Not Detect) Ur Barbiturates Screen Not Detected (Not Detect) Ur Phencyclidine Scrn Not Detected (Not Detect) Ur Amphetamines Screen Not Detected (Not Detect) U Benzodiazepines Scrn Not Detected (Not Detect) [place] < 0.10 L (0.60-1.20) mmol/L Urine Cocaine Screen Not Detected (Not Detect) U Marijuana (THC) Screen POSITIVE H (Not Detect) Ethyl Alcohol < 10 mg/dL Influenza Type A (PCR) (Negative) Influenza Type B (PCR) (Negative) RSV RNA Qual (PCR) (Negative) SARS-CoV-2 RNA (RT-PCR) (Negative) 12/11/23 12/11/23 12/11/23 Range/Units 12:08 12:09 13:17 WBC (4.8-10.8) X10*3/uL RBC (4.60-5.80) X10*6/uL Hgb (14.0-18.0) g/dl Hct (42.0-52.0) % MCV (80.0-98.0) fL MCH (27.0-33.0) pg MCHC (31.0-36.0) g/dl RDW (11.0-16.0) % Plt Count (160-400) X10*3/uL MPV (9.4-12.4) fL Immature Gran % (Auto) (0.0-0.4) % Neut % (Auto) (45-73) % Lymph % (Auto) (20-40) % [place] % (Auto) (2-11) % Eos % (Auto) (0-4) % Baso % (Auto) (0-2) % Lymph # (Auto) (1.2-4.9) X10*3/uL [place] # (Auto) (0.1-1.2) X10*3/uL Eos # (Auto) (0.0-0.4) X10*3/uL Baso # (Auto) (0.0-0.2) X10*3/uL Abs Immat Gran (auto) (0.00-0.03) X10*3/uL Absolute Neuts (auto) (2.0-8.3) x10*3/uL Absolute Nucleated RBC (0.0-0.012) X10*3/uL Nucleated RBC % (auto) (0.0-0.2) /100WBC Sodium (135-145) mmol/L Potassium (3.3-5.1) mmol/L Chloride (96-108) mmol/L Carbon Dioxide (22-29) mmol/L Anion Gap (12-20) BUN (9-16) mg/dL Creatinine (0.5-1.4) mg/dL Estim Creat Clear Calc Estimated GFR POC Glucose 273 H (60-115) mg/dL Random Glucose (60-115) mg/dL Calcium (8.4-10.2) mg/dL Total Bilirubin (0.0-1.0) mg/dL AST (5-37) U/L ALT (0-40) U/L Alkaline Phosphatase (39-117) U/L Total Protein (6.5-8.0) g/dL Albumin (3.5-5.0) g/dL Urine Color Urine Appearance Urine pH (5.0-9.0) Ur Specific [place] (1.005-1.025) Urine Protein (Neg-Trace) mg/dL Urine Glucose (UA) (Negative) mg/dL Urine Ketones (Negative) mg/dL Urine Blood (Negative) Urine Nitrite (Negative) Ur Leukocyte Esterase (Negative) Urine RBC (0-2) /HPF Urine WBC (0-5) /HPF Ur Squamous Epith Cells (0-2) /HPF Urine Bacteria (None Seen) Hyaline Casts (0-2) /LPF Urine Opiates Screen (Not Detect) Ur Buprenorphine Scrn (Not Detect) ng/mL Ur Oxycodone Screen (Not Detect) ng/mL Urine Methadone Screen (Not Detect) ng/mL Urine Fentanyl Screen (Not Detect) Ur Barbiturates Screen (Not Detect) Ur Phencyclidine Scrn (Not Detect) Ur Amphetamines Screen (Not Detect) U Benzodiazepines Scrn (Not Detect) [place] < 0.10 L (0.60-1.20) mmol/L Urine Cocaine Screen (Not Detect) U Marijuana (THC) Screen (Not Detect) Ethyl Alcohol mg/dL Influenza Type A (PCR) NEGATIVE (Negative) Influenza Type B (PCR) NEGATIVE (Negative) RSV RNA Qual (PCR) POSITIVE A (Negative) SARS-CoV-2 RNA (RT-PCR) NEGATIVE (Negative) Critical Care Time Critical Care Time Critical Care Time: Yes Total Critical Care Time: 45 Attestation: I spent 45 minutes of Critical Care Time with this patient. This does not include time spent on separately reported billable procedures. Discharge Plan Discharge Clinical Impression: Suicidal ideation Patient Disposition: Still a Patient Prescriptions: No Action hydroxyzine pamoate 50 mg capsule 100 mg PO BEDTIME lithium carbonate 300 mg capsule 900 mg PO BEDTIME hydrochlorothiazide 25 mg tablet 25 mg PO DAILY hydroxyzine pamoate 25 mg capsule 25 mg PO BEDTIME insulin glargine [Lantus Solostar U-100 Insulin] 100 unit/mL (3 mL) insulin pen 40 unit subcut BEDTIME Patient Comments: patient reports he has only taken 40 units at bedtime Interventions: [place]-Suicide Risk Severity Scale Last Done: 12/11/23 12:10 Print Language: Martiniquais
--- NOTE | 2023-12-11 11:27 | PC.NURSE ---
Assumed care of patient at 1045, patient appears to be in no apparent distress this am, calm and cooperative, aware of plan of care for med clearance and CARE team jaime
[2023-12-11] MEDS: Insulin Lispro 100 UNIT/ML 3 ML VIAL 10 UNIT SUBCUT (11:47)
[2023-12-11 12:02] LABS: Glucose, Whole Blood 382 mg/dL (60-115)
--- NOTE | 2023-12-11 12:05 | PC.NURSE ---
patient reports he has been having homicidal ideation and paranoia over the past month since stopping his medications. pt reports he was on [place] and quite a few other medications but stopped taking them because he ran out of the prescription and could not find anyone to refill them. He reports he feels like people are out to get him and it makes him nervous. Patient is calm and cooperative, help seeking. Patient also reports he stopped taking his insulin a few months ago as well. Insulin administered per MAR
--- NOTE | 2023-12-11 12:16 | PC.NURSE ---
RE; med rec this RN completed med rec via medical record and speaking with patient. patient reports he stopped taking all medications about 1 month ago. He reports that for his nighttime lantus, he takes 40 units instead of 54 units. Patient also reports he never took his haldol because it made him experience unwanted feelings
[2023-12-11 12:20] VITALS: RESP 16
[2023-12-11 12:25] LABS: Lithium < 0.10 mmol/L (0.60-1.20)
[2023-12-11 13:02] LABS: Influenza A PCR NEGATIVE (Negative); Influenza B PCR NEGATIVE (Negative); Resp Syncy Virus RNA Qual PCR POSITIVE (Negative); SARS COV2 PCR INHOUSE NEGATIVE (Negative)
[2023-12-11 13:21] LABS: Glucose, Whole Blood 273 mg/dL (60-115)
[2023-12-11 15:15] VITALS: BP 154/93; PULSE 85; RESP 20; TEMP 37.7; O2SAT 98
[2023-12-11 18:51] LABS: Glucose, Whole Blood 200 mg/dL (60-115)
[2023-12-11 19:40] VITALS: BP 131/92; PULSE 82; RESP 12; TEMP 37.2; O2SAT 95
[2023-12-11 20:31] LABS: Glucose, Whole Blood 313 mg/dL (60-115)
[2023-12-11] MEDS: Acetaminophen 325 MG TABLET 975 MG PO (20:51)
[2023-12-11] MEDS: Insulin Glargine,Hum.rec.anlog 100 UNIT/ML 10 ML VIAL 10 UNIT SUBCUT (20:51)
[2023-12-11] MEDS: Lithium Carbonate 300 MG CAPSULE PO (20:56)
[2023-12-11] MEDS: hydrOXYzine HCL 25 MG TABLET 125 MG PO (22:15)
[2023-12-12 06:26] VITALS: BP 150/101; PULSE 111; RESP 18; TEMP 36.8; O2SAT 97
--- NOTE | 2023-12-12 07:09 | PC.NURSE ---
Assumed care of patient at 0645, patient appears to be sleeping this am, respirations even and unlabored, no apparent distress at this time. Continue plan of care for inpatient bedsearch
[2023-12-12] MEDS: Lithium Carbonate 300 MG CAPSULE PO (08:40)
[2023-12-12] MEDS: hydroCHLOROthiazide 25 MG TABLET PO (08:40)
[2023-12-12 10:56] LABS: Glucose, Whole Blood 256 mg/dL (60-115)
[2023-12-12] MEDS: Benzonatate 100 MG CAPSULE PO (11:30)
--- NOTE | 2023-12-12 11:34 | PC.NURSE ---
Pt has productive cough with thick green/yellow sputum. Pt provided with Benzonatate per MAR, along with diet madhuri kena, blanket and additional tissues. Pt offers no complaints to this RN at this time
--- NOTE | 2023-12-12 12:40 | PC.NURSE ---
Pt reporting that he needs to use his ankle monitor cbx operator, pt upset that he does not have immediate access to it. this RN educated patient that due to the ligature risk, the cbx operator needs to be kept either in his belongings locker or behind the nurses station. Pt agitated but agreeable to this. This RN also educated the patient that while charging, he will be kept on a one to one watch due to the ligature risk. Pt brushed this RN off stating yeah, just let me charge it . Pt noted to initially connect to the cbx operator but frequently disconnecting and ambulating out of his room. It was noted that patient returned to his room and would not reconnect to the cbx operator. KIERRA VasquezT removed cbx operator from patient's room due to him not using it. Pt made aware that if he needs the cbx operator to just let nursing or tech staff know
--- NOTE | 2023-12-12 13:36 | PC.NURSE ---
Pt adamantly refused to take MD Dennis Lewis aware
--- NOTE | 2023-12-12 13:57 | PC.NURSE ---
This RN spoke with on the phone who confirmed home medications. She reports she is the one that preps his meds for the week and stated that he continues to take Simvistatin 20mg HS, Lisinopril 10mg HS, Prazosin 6mg HS, Hydroxyzine 125 HS, HCTZ 25 daily and lithium 900mg HS. Med rec updated
--- NOTE | 2023-12-12 14:42 | PC.NURSE ---
Pt agitated, speaking on phone with at this time. Pt adamant that his dose for Prazosin is 75mg. This RN verified with and pharmacy that patient's dose is 6mg. Pt refusing to accept this stating that we are fucking up his medications .
--- NOTE | 2023-12-12 14:57 | PHA.MEDREC ---
Pharmacy Consult ? Medication Reconciliation Pharmacy has completed the medication reconciliation. Worked with nurse Alexandra to confirm meds. She spoke to and patient to confirm meds.
[2023-12-12] MEDS: LORazepam 1 MG TABLET 2 MG PO (15:35)
--- NOTE | 2023-12-12 16:04 | PC.NURSE ---
Patient continues to be mildly agitated, willing to take PO Ativan
--- NOTE | 2023-12-12 17:43 | PC.NURSE ---
Pts visitng at this time, no apparent distress noted
--- NOTE | 2023-12-12 19:50 | PC.NURSE ---
PT's visitor was sitting on the bed with pt, bait packerUnique Brewer requested the visitor and pt to separate and for the visitor to sit on the chair not on pt's bed. Visitor stated to her why are things changing now when it's been ok for the last two days? , Daniella?explained policies and apologized for inconsistency. The visitor then made?rude comments towards Unique and moved to the chair by the bed.? Moments later,??the pt and visitor walked to the bathroom.? Pt entered the bathroom and the visitor remained at the door with the door opened watching pt use the bathroom. Unique stood by and noted that staff were available to assist the pt should he need assistance in the bathroom.During that time it was noted that PT's blocking machine operator second to his ankle monitor was in his room plugged into the outlet. Unique attempted to explain policy regarding ligature risk to pt and sitter but Visitor and PT became agitated?with Unique not allowing her to explain and PT yelling from the bathroom saying if probation?comes to get him there was going to be problems. Visitor noted to Unique that he has had it for two days so why can't?he have it? now At that time t/w approached visitors to explain that t/w received? the blocking machine operator second last night after the visitor dropped it off to security on 12/11/23 and that pt was not given the blocking machine operator second during retail shift leader. T/w also explained we were not sure why it was allowed without a sitter but should he need it, we could certainly have a sitter at bedside to allow him? to charge his device. Visitor?and pt continued to be verbally aggressive and questioning t/w and Unique, about the policy. T/W explained that the visit would end if the behavior were to continue. Media Theorist And Author Of placed in locker 5 with the rest of his belongings by Unique.? PT returned to his room with the visitor and continued to be verbally aggressive and threatening from his bedside. PT stating that T/W wasn't medicating him or providing patient care. T/W approached?PT and visitor to discuss any concerns to help resolve issues and to explain medication administration times of 9pm. PT stated to T/W that his medications better not be messed up cause y'all have been fucking with my meds . While this com writer was working with provider and pharmacy to order the rest of the medications verified?during day shift, the pt continued verbal aggression calling t/w a edgart , bitch , and making threats. Security called to POD, Charge nurse notified by Unique. T/W made the decision to end the visit as it was becoming unsafe. Visitor was escorted by security and was out of the pod at 1941. After the visitor was removed pt became immediately?calm and stopped derogatory and verbally aggressive comments. POC obtained. madhuri escudero?requested and provided. Plan of care ongoing?
[2023-12-12 19:52] LABS: Glucose, Whole Blood 411 mg/dL (60-115)
--- NOTE | 2023-12-12 20:05 | PC.NURSE ---
PT making several calls on the unit phone since visitor was escorted off the unit. While on the phone, pt yelling loudly, and being verbally aggressive toward staff. PT calling t/w bitch and cunt . T/W asked pt to keep it down and respectful as they are other patient trying to sleep right across from him. PT told t/w to mind your own fucking business, I'm not talking to you . shut the fuck up if you ain't my fucking I have no problem hitting you . Observed that every time pt returned to talking on the phone that he becomes increasingly agitated. Security called several of times due to pt's behavior.
--- NOTE | 2023-12-12 20:13 | MHC.EDTECH ---
The first few minutes of my shift I addressed the Patient and guest in 4 to please have the guest sit in the chair not lie or sit in bed with the patient . I was asked why if it any different now when nobody said anything for two days. I tried to explain but was talked over and the situation was escalating so I thanked them and apologized for the inconsistency. From that point on loud rude comments came from the patient and the guest directed to the RN and I non stop. Security was called and charge was told about the situation. While I was in the ED talking to the charge and requesting that a tech come in a check the the patients sugar the guest was asked to leave about 15 minutes early. The patient is now on the phone with the quest that was asked to leave and asked for madhuri kena not from Caren or Emily. Jhonatan gave him the drink. Rude comments continue to come from the patient towards Emily and Viktoria.
[2023-12-12 20:42] VITALS: BP 146/96; PULSE 118; RESP 20; TEMP 36.6; O2SAT 97
--- NOTE | 2023-12-12 21:38 | PC.NURSE ---
While Pt was walking back to his room from the bathroom, T/W politely asked pt to sit in the chair in front of his room to receive medications. PT ignored t/w and noted to Jhonatan Patel, yo my man can you give me my meds, i dont want anything to do with her. senior technical recruiter noted that he is not able to provide pt meds and that pod rn administers medications. pt walked into his room and sat down. It was noted that on the security camera by business technology architectUnique john, that PT removed an item out of his sock and placed it under sheets of paper on his desk. Pt was also noted to be frantically looking around his room and lifting up the mattress as well. Security called to bedside to inspect. Charge nurse notified. It was discovered to be a marker, no contraband found. PT yelling to security that he just had a sheet of paper with numbers on it and accusing tw of having to do with it being lost. Immediately after the exchange in his room, PT placed a call and stated to whomever he was speaking to that This faggot ass cunt had them come into my room because i said I didn't want meds from her . PT yelling and disrupting the milieu. Charge aware.
--- NOTE | 2023-12-12 21:50 | PC.NURSE ---
Addendum entered by Emily Leonard Feli 12/12/23 23:51: This event occurred between [id number] Original Note: PT's visitor was sitting on the bed with pt, Unique Fu requested the visitor and pt to separate and for the visitor to sit on the chair not on pt's bed. Visitor stated to her why are things changing now when it's been ok for the last two days? , Tech?explained policies and apologized for inconsistency. The visitor then made?rude comments towards Unique and moved to the chair by the bed.? Moments later,??the pt and visitor walked to the bathroom.? Pt entered the bathroom and the visitor remained at the door with the door opened watching pt use the bathroom. Unique stood by and noted that staff were available to assist the pt should he need assistance in the bathroom.During that time it was noted that PT's proofreader to his ankle monitor was in his room plugged into the outlet. Unique attempted to explain policy regarding ligature risk to pt and sitter but Visitor and PT became agitated?with Unique not allowing her to explain and PT yelling from the bathroom saying if probation?comes to get him there was going to be problems. Visitor noted to Unique that he has had it for two days so why can't?he have it? now At that time t/w approached visitors to explain that t/w received? the proofreader last night after the visitor dropped it off to security on 12/11/23 and that pt was not given the proofreader during tech brazer tester. T/w also explained we were not sure why it was allowed without a sitter but should he need it, we could certainly have a sitter at bedside to allow him? to charge his device. Visitor?and pt continued to be verbally aggressive and questioning t/w and Unique, about the policy. T/W explained that the visit would end if the behavior were to continue. Labor Arbitrator placed in locker 5 with the rest of his belongings by Uniuqe.? PT returned to his room with the visitor and continued to be verbally aggressive and threatening from his bedside. PT stating that T/W wasn't medicating him or providing patient care. T/W approached?PT and visitor to discuss any concerns to help resolve issues and to explain medication administration times of 9pm. PT stated to T/W that his medications better not be messed up cause y'all have been fucking with my meds . While this assembly instructions writer was working with provider and pharmacy to order the rest of the medications verified?during day shift, the pt continued verbal aggression calling t/w a cunt , bitch , and making threats. Security called to POD, Charge nurse notified by Unique. T/W made the decision to end the visit as it was becoming unsafe. Visitor was escorted by security and was out of the pod at 1941. After the visitor was removed pt became immediately?calm and stopped derogatory and verbally aggressive comments. POC obtained. madhuri escudero?requested and provided. Plan of care ongoing?
[2023-12-12 22:05] VITALS: RESP 22
[2023-12-12] MEDS: Haloperidol Lactate 5 MG/ML VIAL IM (22:05)
[2023-12-12] MEDS: diphenhydrAMINE HCL 50 MG/ML VIAL IM (22:05)
[2023-12-12] MEDS: LORazepam 2 MG/ML VIAL IM (22:07)
--- NOTE | 2023-12-12 22:10 | PC.NURSE ---
D/T PT increase agitation and safety concerns when talking on phone or having visitors, provider Dr. earl notified t/w pt is not allowed vistors or to be on the phone while in the ED. Plan of care ongoing
[2023-12-12 22:20] VITALS: BP 142/101; PULSE 122; RESP 19; TEMP 36.8; O2SAT 96
[2023-12-12] MEDS: Insulin Lispro 100 UNIT/ML 3 ML VIAL SUBCUT (22:20)
[2023-12-12] MEDS: Insulin Glargine,Hum.rec.anlog 100 UNIT/ML 10 ML VIAL 10 UNIT SUBCUT (22:21)
[2023-12-12 22:35] VITALS: RESP 16
[2023-12-12 22:39] VITALS: RESP 16
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
[2023-12-12 22:40] LABS: Glucose, Whole Blood 395 mg/dL (60-115)
--- NOTE | 2023-12-13 05:19 | PC.NURSE ---
Pt awake 2 times to utilize the bathroom. Gait steady. PT requested and provided a linen change and new hospital gown and pants. VSS. Pt back in bed laying quietly in bed. respiration even and unlabored. plan of care ongoing
[2023-12-13 05:21] VITALS: BP 156/95; PULSE 113; RESP 18; TEMP 37.2; O2SAT 97
--- NOTE | 2023-12-13 07:17 | PC.NURSE ---
Assumed care of patient at 0645, patient appears to be sleeping at this time, respirations even and unlabored, no apparent distress is noted. Per cage shift manager staff, pt is no longer allowed visitors or phone calls due to increasing agitation that was consistent with behavior occurring on day shift yesterday with this RN. Pt was restrained due to escalating behavior and threatening staff. Continue plan of care for inpatient bedsearch at this time
[2023-12-13 07:19] VITALS: RESP 16
[2023-12-13 09:48] VITALS: BP 170/109
[2023-12-13] MEDS: Lithium Carbonate 300 MG CAPSULE PO ×2 (09:48→20:36)
[2023-12-13] MEDS: hydroCHLOROthiazide 25 MG TABLET PO (09:48)
[2023-12-13 09:54] LABS: Glucose, Whole Blood 361 mg/dL (60-115)
[2023-12-13] MEDS: Insulin Lispro 100 UNIT/ML 3 ML VIAL SUBCUT ×3 (10:04→20:34)
[2023-12-13 10:05] VITALS: BP 170/109; PULSE 86; RESP 16; TEMP 37.8; O2SAT 99
--- NOTE | 2023-12-13 10:06 | PC.NURSE ---
Pt agreeable to vitals and POC check. pt took morning medications except Haldol without issue. pt is currently eating breakfast, no apparent distress noted
[2023-12-13] MEDS: LORazepam 1 MG TABLET 2 MG PO (10:17)
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
--- NOTE | 2023-12-13 12:18 | PC.NURSE ---
Patient showering without issue at this time. This RN spoke to on the phone who reports she is going to bring in clothes for patient. aware pt cannot have visitors or phone calls at this time
[2023-12-13 16:01] VITALS: BP 120/71; PULSE 102; RESP 16; TEMP 37.7; O2SAT 99
[2023-12-13 16:03] LABS: Glucose, Whole Blood 289 mg/dL (60-115)
--- NOTE | 2023-12-13 18:08 | MHC.CARE ---
Pt was reassessed by the CARE team. Continues to meet criteria for inpatient admission. Will remain in ER pending placement.
[2023-12-13 18:23] LABS: Glucose, Whole Blood 387 mg/dL (60-115)
[2023-12-13 20:25] VITALS: BP 121/86; PULSE 99; RESP 16; TEMP 37.6; O2SAT 97
[2023-12-13 20:26] LABS: Glucose, Whole Blood 373 mg/dL (60-115)
[2023-12-13] MEDS: hydrOXYzine HCL 50 MG TABLET 100 MG PO (20:34)
[2023-12-13] MEDS: Insulin Glargine,Hum.rec.anlog 100 UNIT/ML 10 ML VIAL 10 UNIT SUBCUT (20:34)
[2023-12-13] MEDS: hydrOXYzine HCL 25 MG TABLET PO (20:34)
[2023-12-13] MEDS: Atorvastatin Calcium 10 MG TABLET PO (20:34)
[2023-12-13] MEDS: Prazosin HCL 5 MG, Prazosin HCL 1 MG 6 MG PO (20:36)
--- NOTE | 2023-12-14 03:03 | PC.NURSE ---
Patient awake, calm and cooperative at this time. Vital signs obtained by tech without difficulty.
[2023-12-14 03:28] VITALS: BP 129/76; PULSE 119; RESP 17; TEMP 36.5; O2SAT 98
--- NOTE | 2023-12-14 08:32 | ECG_ITS ---
Test Reason : CHECK QTC Blood Pressure : / mmHG Vent. Rate : 118 BPM Atrial Rate : 118 BPM P-R Int : 144 ms QRS Dur : 072 ms QT Int : 334 ms P-R-T Axes : 048 -25 049 degrees QTc Int : 468 ms Sinus tachycardia Otherwise normal ECG No previous ECGs available Referred By: Generic ED Physician Electronically Signed By:SHELIA MILES MD
[2023-12-14 08:54] LABS: Glucose, Whole Blood 367 mg/dL (60-115)
[2023-12-14] MEDS: Lithium Carbonate 300 MG CAPSULE PO (09:28)
[2023-12-14] MEDS: hydroCHLOROthiazide 25 MG TABLET PO (09:28)
[2023-12-14] MEDS: Insulin Lispro 100 UNIT/ML 3 ML VIAL SUBCUT ×4 (09:29→21:08)
[2023-12-14] MEDS: LORazepam 1 MG TABLET 2 MG PO (09:38)
[2023-12-14 10:37] LABS: Glucose, Whole Blood 379 mg/dL (60-115)
--- NOTE | 2023-12-14 12:14 | PM.EVENT ---
Documented by User: Alejandra Mcgee, WINE PASTEURIZER 12/14/23 15:42 Event Note Date of Service: 12/14/23 Event Note: Boarding/ 24 hour bed search consult. Met with pt and girlfriend to review medications, symptoms. Pt initially guarded, caustic, angry and upset. All they do is play with my medications, push Haldol. I just want to relax . Reports hx of Bipolar Disorder, AH, PTSD, Schizophrenia, paranoid delusions. At times I even think my girlfriend is out to get me. Pt describes family as being his top priority, having an active life and roland with 4 grandchildren, a fifth girlfriend tells him today is on the way. We reviewed his medication list and will make the following changes... --Change Haldol to prn --Risperdal 1 mg bid --Change [place] to 900 mg HS as he has taken it at home. Pt discussed his concerns about medication SE. He is specifically concerned about sexual SE from regime. This was discussed, education was provided. Pt agrees to admission, asks appropriate questions and is fully engaged in discussion as it progressed. He denies SI/HI/ AH at times. Mood remains somewhat labile, caustic and he is reactive at times. Orders written for M5 admission, then we were informed pt was to be admitted to M3. As a result transfer order was changed. Time Spent With Patient Time: Total time managing care of this patient today ____ minutes. Documented by User: Steve Verdin MD 12/17/23 14:58 Event Note Date of Service: 12/17/23
[2023-12-14 12:57] LABS: Glucose, Whole Blood 344 mg/dL (60-115)
[2023-12-14] MEDS: Acetaminophen 325 MG TABLET 650 MG PO (15:02)
[2023-12-14 16:55] LABS: Glucose, Whole Blood 315 mg/dL (60-115)
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
[2023-12-14 20:06] LABS: Glucose, Whole Blood 287 mg/dL (60-115)
[2023-12-14 20:10] VITALS: BP 144/90; PULSE 124; RESP 18; TEMP 37.4; O2SAT 91
[2023-12-14] MEDS: Insulin Glargine,Hum.rec.anlog 100 UNIT/ML 10 ML VIAL 10 UNIT SUBCUT (21:07)
[2023-12-14] MEDS: Lithium Carbonate 300 MG CAPSULE 900 MG PO (21:10)
[2023-12-14] MEDS: hydrOXYzine HCL 25 MG TABLET PO (21:10)
[2023-12-14] MEDS: Prazosin HCL 5 MG, Prazosin HCL 1 MG 6 MG PO (21:11)
[2023-12-14] MEDS: risperiDONE 1 MG TABLET PO (21:11)
[2023-12-14] MEDS: hydrOXYzine HCL 50 MG TABLET 100 MG PO (21:11)
[2023-12-14] MEDS: Atorvastatin Calcium 10 MG TABLET PO (21:12)
[2023-12-15 07:50] VITALS: BP 137/82; PULSE 79; RESP 18; TEMP 37.1; O2SAT 96
[2023-12-15 07:57] LABS: Glucose, Whole Blood 349 mg/dL (60-115)
[2023-12-15] MEDS: risperiDONE 1 MG TABLET PO ×2 (08:23→20:25)
[2023-12-15] MEDS: Insulin Lispro 100 UNIT/ML 3 ML VIAL SUBCUT ×4 (08:23→20:48)
[2023-12-15] MEDS: hydroCHLOROthiazide 25 MG TABLET PO (08:23)
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
[2023-12-15 10:13] LABS: Estimated Average Glucose 283 mg/dL; Hemoglobin A1C 432.1889 umol/L; Hemoglobin A1c % 11.5 % (<6.0)
[2023-12-15 10:27] LABS: Cholesterol 194 mg/dL (<200); HDL Cholesterol 27 mg/dL (>40); LDL Cholesterol Calculated 118 mg/dL (<100); Magnesium 1.8 mg/dL (1.6-2.6); Triglycerides 245 mg/dL (<150)
[2023-12-15 10:45] LABS: Free T4 (Free Thyroxine) 1.62 ng/dL (0.71-1.85); Thyroid Stimulating Hormone 1.11 uIU/mL (0.32-4.0)
[2023-12-15 10:56] LABS: Folate 13.8 ng/mL (> or = 4.0); Vitamin B12 590 pg/mL (200-900)
[2023-12-15 11:39] LABS: Glucose, Whole Blood 447 mg/dL (60-115)
[2023-12-15 16:53] LABS: Glucose, Whole Blood 397 mg/dL (60-115)
[2023-12-15 20:00] VITALS: BP 139/89; PULSE 112; RESP 16; TEMP 36.6; O2SAT 97
[2023-12-15 20:24] LABS: Glucose, Whole Blood 336 mg/dL (60-115)
[2023-12-15] MEDS: Lithium Carbonate 300 MG CAPSULE 900 MG PO (20:24)
[2023-12-15] MEDS: Prazosin HCL 5 MG, Prazosin HCL 1 MG 6 MG PO (20:24)
[2023-12-15] MEDS: hydrOXYzine HCL 25 MG TABLET PO (20:24)
[2023-12-15] MEDS: hydrOXYzine HCL 50 MG TABLET 100 MG PO (20:24)
[2023-12-15] MEDS: Atorvastatin Calcium 10 MG TABLET PO (20:24)
[2023-12-15] MEDS: Insulin Glargine,Hum.rec.anlog 100 UNIT/ML 10 ML VIAL 10 UNIT SUBCUT (20:25)
[2023-12-15] MEDS: LORazepam 0.5 MG TABLET PO (20:48)
[2023-12-16 08:00] VITALS: BP 138/86; PULSE 98; RESP 16; TEMP 37.1; O2SAT 95
[2023-12-16] MEDS: risperiDONE 1 MG TABLET PO ×2 (08:41→21:22)
[2023-12-16] MEDS: hydroCHLOROthiazide 25 MG TABLET PO (08:41)
[2023-12-16 08:54] LABS: Glucose, Whole Blood 322 mg/dL (60-115)
[2023-12-16] MEDS: Insulin Lispro 100 UNIT/ML 3 ML VIAL SUBCUT ×2 (09:00→12:22)
--- NOTE | 2023-12-16 09:12 | P.PNPSI_ITS ---
Subjective Subjective Date of Service: 12/16/23 Reason For Visit: PTSD; mood disorder, SI Subjective Notes: Conditional Voluntary Interim History: Active on unit. social with peers. pt reports he is starting to feel better than when he first came here ; pt stated, I wasn't being honest with my about having auditory hallucinations but I told her I was having them . showered. Pt is no longer on isolation d/t RSV. medication compliant. Binford level to be drawn on 12/19/23; pt aware. Medication Compliance: Yes Side effects from medications: No Attending Groups: Yes Review of Systems Constitutional: Reports as per HPI Eyes: Reports as per HPI Reports as per HPI Cardiovascular: Reports as per HPI Respiratory: Reports as per HPI Gastrointestinal: Reports as per HPI Genitourinary: Reports as per HPI Musculoskeletal: Reports as per HPI Skin/Breast: Reports as per HPI Reports as per HPI Psychiatric: Reports as per HPI Endocrine: Reports as per HPI Hematologic/Lymphatic: Reports as per HPI Allergic/Immunologic: Reports as per HPI Mental Status Exam Mental Status Exam Narrative: Pt is alert and oriented; behavior is cooperative; dressed in casual attire; mood is described as depressed ; eye contact appropriate; Speech is normal rate, volume and not pressured; thought process is organized and goal directed; Thought content is on tx; otherwise pertinent to relevant topics and without any delusional content, paranoid ideations or grandiosity; denies SI/HI/VH/AH. Diagnostics Vital Signs (24Hr): Vital Signs - 24 hr 12/15/23 20:00 12/16/23 08:00 Temperature 97.9 F 98.8 F Pulse Rate 112 H 98 Respiratory Rate 16 16 Blood Pressure 139/89 138/86 Pulse Oximetry 97 95 Oxygen Delivery Method Room Air Room Air BMI result Body Mass Index 34.7 Labs 12/11/23 10:31 12/11/23 10:31 Labs: Laboratory Results - last 48 hr 12/14/23 12/14/23 12/14/23 10:33 12:52 16:50 POC Glucose 379 H* 344 H 315 H Estimat Average Glucose Hemoglobin A1c % Magnesium Triglycerides Cholesterol LDL Cholesterol, Calc HDL Cholesterol Vitamin B12 Folate TSH Free T4 12/14/23 12/15/23 12/15/23 20:01 07:53 09:20 POC Glucose 287 H 349 H Estimat Average Glucose 283 Hemoglobin A1c % 11.5 H Magnesium 1.8 Triglycerides 245 H Cholesterol 194 LDL Cholesterol, Calc 118 H HDL Cholesterol 27 L Vitamin B12 590 Folate 13.8 TSH 1.11 Free T4 1.62 12/15/23 12/15/23 12/15/23 11:34 16:46 20:17 POC Glucose 447 H* 397 H* 336 H Estimat Average Glucose Hemoglobin A1c % Magnesium Triglycerides Cholesterol LDL Cholesterol, Calc HDL Cholesterol Vitamin B12 Folate TSH Free T4 12/16/23 07:51 POC Glucose 322 H Estimat Average Glucose Hemoglobin A1c % Magnesium Triglycerides Cholesterol LDL Cholesterol, Calc HDL Cholesterol Vitamin B12 Folate TSH Free T4 Medications Medications Current Medications Acetaminophen (Acetaminophen 325 Mg Tablet) 650 mg PO Q6H PRN PRN Reason: Headache/Pain Mild Scale (1-3) Al Hydroxide/Mg Hydroxide (Magnesium Hydrox/Alum Hydrox 30 Ml Oral.Susp) 30 ml PO Q6H PRN PRN Reason: Heartburn/Nausea Atorvastatin Calcium (Atorvastatin Calcium 10 Mg Tablet) 10 mg PO BEDTIME BENITA Last Admin: 12/15/23 20:24 Dose: 10 mg Glucose (Glucose Gel 15 Gm Gel..Gram.) 15 gm PO Q15M PRN; Protocol PRN Reason: per Hypoglycemia Standing Ord. Hydrochlorothiazide (Hydrochlorothiazide 25 Mg Tablet) 25 mg PO DAILY BENITA; Protocol Last Admin: 12/16/23 08:41 Dose: 25 mg Hydroxyzine HCl (Hydroxyzine Hcl 25 Mg Tablet) 25 mg PO BEDTIME BENITA Last Admin: 12/15/23 20:24 Dose: 25 mg Hydroxyzine HCl (Hydroxyzine Hcl 50 Mg Tablet) 100 mg PO BEDTIME BENITA Last Admin: 12/15/23 20:24 Dose: 100 mg Insulin Glargine (Insulin Glargine,Hum.Rec.Anlog 100 Unit/Ml 10 Ml Vial) 10 unit SUBCUT BEDTIME BENITA Last Admin: 12/15/23 20:25 Dose: 10 unit Insulin Human Lispro (Insulin Lispro 100 Unit/Ml 3 Ml Vial) 0 unit SUBCUT QIDACHS [facility]; Protocol Last Admin: 12/16/23 09:00 Dose: 8 unit Binford Carbonate (Binford Carbonate 300 Mg Capsule) 900 mg PO BEDTIME BENITA Last Admin: 12/15/23 20:24 Dose: 900 mg Lorazepam (Lorazepam 0.5 Mg Tablet) 0.5 mg PO BID PRN PRN Reason: Anxiety Last Admin: 12/15/23 20:48 Dose: 0.5 mg Magnesium Hydroxide (Milk Of Magnesia 30 Ml Oral.Susp) 30 ml PO DAILY PRN PRN Reason: Constipation Nicotine (Nicotine 21 Mg Patch.Td24) 21 mg TRANSDERMA DAILY PRN PRN Reason: nicotine cravings Nicotine Polacrilex (Nicotine Polacrilex 2 Mg Gum) 4 mg BUCCAL Q2H PRN PRN Reason: Nicotine Cravings Prazosin HCl 5 mg/ Prazosin (HCl 1 mg) 6 mg PO BEDTIME BENITA; Protocol Last Admin: 12/15/23 20:24 Dose: 6 mg Risperidone (Risperidone 1 Mg Tablet) 1 mg PO BID BENITA Last Admin: 12/16/23 08:41 Dose: 1 mg Trazodone HCl (Trazodone Hcl 50 Mg Tablet) 50 mg PO BEDTIME [id number] PRN PRN Reason: Insomnia Allergies Allergies Allergy/AdvReac Type Severity Reaction Status Date / Time No Known Allergies Allergy Verified 12/11/23 09:54 Assessment & Plan Assessment & Plan (1) Bipolar 1 disorder: Status: Acute Code(s): F31.9 - Bipolar disorder, unspecified (2) PTSD (post-traumatic stress disorder): Status: Acute Code(s): F43.10 - Post-traumatic stress disorder, unspecified Plan Patient is a 43-year-old male with history bipolar d/o and PTSD, who self presented to [facility] due to suicidal ideation secondary to increased auditory hallucinations d/t not having access to his psychiatric medications. Plan: CV 15 minute safety checks Continue home medications Started on Risperdal 1 mg p.o. b.i.d. Referral to outpatient therapy and psychiatry Encourage groups Discharge planning 12/15: Active on unit. social with peers. pt reports he is starting to feel better than when he first came here ; pt stated, I wasn't being honest with my about having auditory hallucinations but I told her I was having them . showered. Pt is no longer on isolation d/t RSV. medication compliant. Binford level to be drawn on 12/19/23; pt aware. Continue current tx plan. Patient educated on: diagnosis, medication risk/benefits and therapeutic strategies Reason for continued inpatient stay Substantial Risk for: med/psych decompensation Time Spent With Patient Time: Total time managing care of this patient today _20___ minutes.
[2023-12-16 11:53] LABS: Glucose, Whole Blood 359 mg/dL (60-115)
--- NOTE | 2023-12-16 12:25 | PM.EVENT ---
Event Note Date of Service: 12/16/23 Event Note: pt with persistent high blood sugars on M3 psych floor in the mid to high 300s. his home lantus dose is 40U QHS, currently only taking 10U here. will bring him back to 40U QHS. Time Spent With Patient Time: Total time managing care of this patient today 5 minutes.
[2023-12-16] MEDS: LORazepam 0.5 MG TABLET PO (14:58)
[2023-12-16 16:46] LABS: Glucose, Whole Blood 357 mg/dL (60-115)
[2023-12-16 21:00] VITALS: BP 140/92; PULSE 115; RESP 16; TEMP 36.9; O2SAT 99
[2023-12-16 21:11] LABS: Glucose, Whole Blood 336 mg/dL (60-115)
[2023-12-16] MEDS: Lithium Carbonate 300 MG CAPSULE 900 MG PO (21:21)
[2023-12-16] MEDS: Insulin Glargine,Hum.rec.anlog 100 UNIT/ML 10 ML VIAL 40 UNIT SUBCUT (21:21)
[2023-12-16] MEDS: Prazosin HCL 5 MG, Prazosin HCL 1 MG 6 MG PO (21:22)
[2023-12-16] MEDS: Atorvastatin Calcium 10 MG TABLET PO (21:22)
[2023-12-16] MEDS: hydrOXYzine HCL 50 MG TABLET 100 MG PO (21:22)
[2023-12-16] MEDS: hydrOXYzine HCL 25 MG TABLET PO (21:22)
[2023-12-17 07:00] VITALS: BMI 31.3
[2023-12-17 07:38] LABS: Glucose, Whole Blood 314 mg/dL (60-115)
[2023-12-17 07:40] VITALS: BP 147/91; PULSE 96; RESP 18; TEMP 37.2; O2SAT 98
[2023-12-17 07:53] VITALS: BP 147/91; PULSE 96; RESP 18; TEMP 37.2; O2SAT 98
[2023-12-17] MEDS: hydroCHLOROthiazide 25 MG TABLET PO (08:24)
[2023-12-17] MEDS: risperiDONE 1 MG TABLET PO ×2 (08:24→21:39)
[2023-12-17 12:02] LABS: Glucose, Whole Blood 491 mg/dL (60-115)
[2023-12-17] MEDS: Insulin Lispro 100 UNIT/ML 3 ML VIAL SUBCUT ×3 (12:16→21:39)
--- NOTE | 2023-12-17 12:53 | HO.PSYCHPN ---
Subjective Subjective Date of Service: 12/17/23 Reason For Visit: PTSD; mood disorder, SI Subjective Notes: Conditional Voluntary Interim History: Active on unit. social with peers. pt reports feeling down today; pt stated, there was stuff happening at my house yesterday but I know I need to be here to focused on myself before helping other people . denies SI/HI/VH/AH. attending groups. Medication Compliance: Yes Side effects from medications: No Attending Groups: Yes Review of Systems Constitutional: Reports as per HPI Eyes: Reports as per HPI Reports as per HPI Cardiovascular: Reports as per HPI Respiratory: Reports as per HPI Gastrointestinal: Reports as per HPI Genitourinary: Reports as per HPI Musculoskeletal: Reports as per HPI Skin/Breast: Reports as per HPI Reports as per HPI Psychiatric: Reports as per HPI Endocrine: Reports as per HPI Hematologic/Lymphatic: Reports as per HPI Allergic/Immunologic: Reports as per HPI Mental Status Exam Mental Status Exam Narrative: Pt is alert and oriented; behavior is cooperative; dressed in casual attire; mood is described as depressed ; eye contact appropriate; Speech is normal rate, volume and not pressured; thought process is organized and goal directed; Thought content is on tx; otherwise pertinent to relevant topics and without any delusional content, paranoid ideations or grandiosity; denies SI/HI/VH/AH. Diagnostics Vital Signs (24Hr): Vital Signs - 24 hr 12/16/23 21:00 12/17/23 07:40 12/17/23 07:53 Temperature 98.4 F 98.9 F 98.9 F Pulse Rate 115 H 96 96 Respiratory Rate 16 18 18 Blood Pressure 140/92 H 147/91 H 147/91 H Pulse Oximetry 99 98 98 Oxygen Delivery Method Room Air Room Air Room Air BMI result Body Mass Index 31.3 Labs 12/11/23 10:31 12/11/23 10:31 Labs: Laboratory Results - last 48 hr 12/15/23 12/15/23 12/16/23 16:46 20:17 07:51 POC Glucose 397 H* 336 H 322 H 12/16/23 12/16/23 12/16/23 11:42 16:41 21:07 POC Glucose 359 H* 357 H* 336 H 12/17/23 12/17/23 07:31 11:51 POC Glucose 314 H 491 H* Medications Medications Current Medications Acetaminophen (Acetaminophen 325 Mg Tablet) 650 mg PO Q6H PRN PRN Reason: Headache/Pain Mild Scale (1-3) Al Hydroxide/Mg Hydroxide (Magnesium Hydrox/Alum Hydrox 30 Ml Oral.Susp) 30 ml PO Q6H PRN PRN Reason: Heartburn/Nausea Atorvastatin Calcium (Atorvastatin Calcium 10 Mg Tablet) 10 mg PO BEDTIME BENITA Last Admin: 12/16/23 21:22 Dose: 10 mg Glucose (Glucose Gel 15 Gm Gel..Gram.) 15 gm PO Q15M PRN; Protocol PRN Reason: per Hypoglycemia Standing Ord. Hydrochlorothiazide (Hydrochlorothiazide 25 Mg Tablet) 25 mg PO DAILY BENITA; Protocol Last Admin: 12/17/23 08:24 Dose: 25 mg Hydroxyzine HCl (Hydroxyzine Hcl 25 Mg Tablet) 25 mg PO BEDTIME BENITA Last Admin: 12/16/23 21:22 Dose: 25 mg Hydroxyzine HCl (Hydroxyzine Hcl 50 Mg Tablet) 100 mg PO BEDTIME BENITA Last Admin: 12/16/23 21:22 Dose: 100 mg Insulin Glargine (Insulin Glargine,Hum.Rec.Anlog 100 Unit/Ml 10 Ml Vial) 45 unit SUBCUT BEDTIME BENITA Insulin Human Lispro (Insulin Lispro 100 Unit/Ml 3 Ml Vial) 0 unit SUBCUT QIDACHS [facility]; Protocol Last Admin: 12/17/23 12:16 Dose: 18 unit [place] Carbonate ([place] Carbonate 300 Mg Capsule) 900 mg PO BEDTIME BENITA Last Admin: 12/16/23 21:21 Dose: 900 mg Lorazepam (Lorazepam 0.5 Mg Tablet) 0.5 mg PO BID PRN PRN Reason: Anxiety Last Admin: 12/16/23 14:58 Dose: 0.5 mg Magnesium Hydroxide (Milk Of Magnesia 30 Ml Oral.Susp) 30 ml PO DAILY PRN PRN Reason: Constipation Nicotine (Nicotine 21 Mg Patch.Td24) 21 mg TRANSDERMA DAILY PRN PRN Reason: nicotine cravings Nicotine Polacrilex (Nicotine Polacrilex 2 Mg Gum) 4 mg BUCCAL Q2H PRN PRN Reason: Nicotine Cravings Prazosin HCl 5 mg/ Prazosin (HCl 1 mg) 6 mg PO BEDTIME BENITA; Protocol Last Admin: 12/16/23 21:22 Dose: 6 mg Risperidone (Risperidone 1 Mg Tablet) 1 mg PO BID BENITA Last Admin: 12/17/23 08:24 Dose: 1 mg Trazodone HCl (Trazodone Hcl 50 Mg Tablet) 50 mg PO BEDTIME MRX1 PRN PRN Reason: Insomnia Allergies Allergies Allergy/AdvReac Type Severity Reaction Status Date / Time No Known Allergies Allergy Verified 12/11/23 09:54 Assessment & Plan Assessment & Plan (1) Bipolar 1 disorder: Status: Acute Code(s): F31.9 - Bipolar disorder, unspecified (2) PTSD (post-traumatic stress disorder): Status: Acute Code(s): F43.10 - Post-traumatic stress disorder, unspecified Plan Patient is a 43-year-old male with history bipolar d/o and PTSD, who self presented [place] [facility] due to suicidal ideation secondary to increased auditory hallucinations d/t not having access to his psychiatric medications. Plan: CV 15 minute safety checks Continue home medications Started on Risperdal 1 mg p.o. b.i.d. Referral to outpatient therapy and psychiatry Encourage groups Discharge planning 12/15: Active on unit. social with peers. pt reports he is starting to feel better than when he first came here ; pt stated, I wasn't being honest with my about having auditory hallucinations but I told her I was having them . showered. Pt is no longer on isolation d/t RSV. medication compliant. [place] level to be drawn on 12/19/23; pt aware. Continue current tx plan. 12/16: pt reports feeling down today; pt stated, there was stuff happening at my house yesterday but I know I need to be here to focused on myself before helping other people . denies SI/HI/VH/AH. attending groups. Continue current tx plan. Patient educated on: diagnosis, medication risk/benefits and therapeutic strategies Reason for continued inpatient stay Substantial Risk for: med/psych decompensation Time Spent With Patient Time: Total time managing care of this patient today _20___ minutes.
--- NOTE | 2023-12-17 13:19 | PC.NURSE ---
12/17/23 critical poc of 491 at 1155. [place] texted Dr Linda Zhong at 1158. adjusted sliding scale, results pending.
[2023-12-17 14:04] LABS: Glucose, Whole Blood 404 mg/dL (60-115)
--- NOTE | 2023-12-17 14:32 | PC.NURSE ---
12/17/23 Rechecked POC at 1359 poc was 404. [place] texted Dr. Linda Zhong at 1401. No further interventions ordered at this time.
[2023-12-17 16:59] LABS: Glucose, Whole Blood 274 mg/dL (60-115)
[2023-12-17 20:00] VITALS: BP 148/89; PULSE 98; RESP 18; TEMP 36.6; O2SAT 96
[2023-12-17 21:32] LABS: Glucose, Whole Blood 311 mg/dL (60-115)
[2023-12-17] MEDS: Lithium Carbonate 300 MG CAPSULE 900 MG PO (21:36)
[2023-12-17] MEDS: Atorvastatin Calcium 10 MG TABLET PO (21:39)
[2023-12-17] MEDS: hydrOXYzine HCL 50 MG TABLET 100 MG PO (21:39)
[2023-12-17] MEDS: hydrOXYzine HCL 25 MG TABLET PO (21:39)
[2023-12-17] MEDS: Insulin Glargine,Hum.rec.anlog 100 UNIT/ML 10 ML VIAL 45 UNIT SUBCUT (21:40)
[2023-12-17 21:41] VITALS: BP 135/89
[2023-12-17] MEDS: Prazosin HCL 5 MG, Prazosin HCL 1 MG 6 MG PO (21:41)
[2023-12-18 07:39] VITALS: BP 134/87; PULSE 94; RESP 16; TEMP 36.8; O2SAT 97
[2023-12-18 08:08] LABS: Glucose, Whole Blood 200 mg/dL (60-115)
[2023-12-18 08:23] VITALS: BP 134/87; PULSE 94; RESP 16; TEMP 36.8; O2SAT 99
[2023-12-18] MEDS: Insulin Lispro 100 UNIT/ML 3 ML VIAL SUBCUT ×4 (08:24→22:28)
[2023-12-18] MEDS: risperiDONE 1 MG TABLET PO ×2 (08:24→22:27)
[2023-12-18] MEDS: hydroCHLOROthiazide 25 MG TABLET PO (08:25)
[2023-12-18 11:44] LABS: Glucose, Whole Blood 418 mg/dL (60-115)
--- NOTE | 2023-12-18 12:08 | P.PNPSI_ITS ---
Subjective Subjective Date of Service: 12/18/23 Reason For Visit: PTSD; mood disorder, SI Subjective Notes: Conditional Voluntary Interim History: pt reports feeling better today; pt stated, my visited me yesterday and it went well . denies SI/HI/VH/AH. attending groups. pt reports sleeping well. [place] level to be drawn tomorrow morning. Planning for discharge on Thursday if pt continues to improve. Medication Compliance: Yes Side effects from medications: No Attending Groups: Intermittent Review of Systems Constitutional: Reports as per HPI Eyes: Reports as per HPI Reports as per HPI Cardiovascular: Reports as per HPI Respiratory: Reports as per HPI Gastrointestinal: Reports as per HPI Genitourinary: Reports as per HPI Musculoskeletal: Reports as per HPI Skin/Breast: Reports as per HPI Reports as per HPI Psychiatric: Reports as per HPI Endocrine: Reports as per HPI Hematologic/Lymphatic: Reports as per HPI Allergic/Immunologic: Reports as per HPI Mental Status Exam Mental Status Exam Narrative: Pt is alert and oriented; behavior is cooperative; dressed in casual attire; mood is described as better ; eye contact appropriate; Speech is normal rate, volume and not pressured; thought process is organized and goal directed; Thought content is on tx; otherwise pertinent to relevant topics and without any delusional content, paranoid ideations or grandiosity; denies SI/HI/VH/AH. Diagnostics Vital Signs (24Hr): Vital Signs - 24 hr 12/17/23 20:00 12/17/23 21:41 12/18/23 07:39 Temperature 97.9 F 98.3 F Pulse Rate 98 94 Respiratory Rate 18 16 Blood Pressure 148/89 H 135/89 134/87 Pulse Oximetry 96 97 Oxygen Delivery Method Room Air Room Air 12/18/23 08:23 Temperature 98.3 F Pulse Rate 94 Respiratory Rate 16 Blood Pressure 134/87 Pulse Oximetry 99 Oxygen Delivery Method Room Air BMI result Body Mass Index 31.3 Labs 12/11/23 10:31 12/11/23 10:31 Labs: Laboratory Results - last 48 hr 12/16/23 12/16/23 12/17/23 16:41 21:07 07:31 POC Glucose 357 H* 336 H 314 H 12/17/23 12/17/23 12/17/23 11:51 13:59 16:46 POC Glucose 491 H* 404 H* 274 H 12/17/23 12/18/23 12/18/23 21:28 08:03 11:41 POC Glucose 311 H 200 H 418 H* Medications Medications Current Medications Acetaminophen (Acetaminophen 325 Mg Tablet) 650 mg PO Q6H PRN PRN Reason: Headache/Pain Mild Scale (1-3) Al Hydroxide/Mg Hydroxide (Magnesium Hydrox/Alum Hydrox 30 Ml Oral.Susp) 30 ml PO Q6H PRN PRN Reason: Heartburn/Nausea Atorvastatin Calcium (Atorvastatin Calcium 10 Mg Tablet) 10 mg PO BEDTIME BENITA Last Admin: 12/17/23 21:39 Dose: 10 mg Glucose (Glucose Gel 15 Gm Gel..Gram.) 15 gm PO Q15M PRN; Protocol PRN Reason: per Hypoglycemia Standing Ord. Hydrochlorothiazide (Hydrochlorothiazide 25 Mg Tablet) 25 mg PO DAILY BENITA; Protocol Last Admin: 12/18/23 08:25 Dose: 25 mg Hydroxyzine HCl (Hydroxyzine Hcl 25 Mg Tablet) 25 mg PO BEDTIME BENITA Last Admin: 12/17/23 21:39 Dose: 25 mg Hydroxyzine HCl (Hydroxyzine Hcl 50 Mg Tablet) 100 mg PO BEDTIME BENITA Last Admin: 12/17/23 21:39 Dose: 100 mg Insulin Glargine (Insulin Glargine,Hum.Rec.Anlog 100 Unit/Ml 10 Ml Vial) 45 unit SUBCUT BEDTIME BENITA Last Admin: 12/17/23 21:40 Dose: 45 unit Insulin Human Lispro (Insulin Lispro 100 Unit/Ml 3 Ml Vial) 0 unit SUBCUT QIDACHS [facility]ENITA; Protocol Last Admin: 12/18/23 08:24 Dose: 15 unit [place] Carbonate ([place] Carbonate 300 Mg Capsule) 900 mg PO BEDTIME BENITA Last Admin: 12/17/23 21:36 Dose: 900 mg Lorazepam (Lorazepam 0.5 Mg Tablet) 0.5 mg PO DAILY PRN PRN Reason: Anxiety Magnesium Hydroxide (Milk Of Magnesia 30 Ml Oral.Susp) 30 ml PO DAILY PRN PRN Reason: Constipation Nicotine (Nicotine 21 Mg Patch.Td24) 21 mg TRANSDERMA DAILY PRN PRN Reason: nicotine cravings Nicotine Polacrilex (Nicotine Polacrilex 2 Mg Gum) 4 mg BUCCAL Q2H PRN PRN Reason: Nicotine Cravings Prazosin HCl 5 mg/ Prazosin (HCl 1 mg) 6 mg PO BEDTIME BENITA; Protocol Last Admin: 12/17/23 21:41 Dose: 6 mg Risperidone (Risperidone 1 Mg Tablet) 1 mg PO BID BENITA Last Admin: 12/18/23 08:24 Dose: 1 mg Trazodone HCl (Trazodone Hcl 50 Mg Tablet) 50 mg PO BEDTIME MRX1 PRN PRN Reason: Insomnia Allergies Allergies Allergy/AdvReac Type Severity Reaction Status Date / Time No Known Allergies Allergy Verified 12/11/23 09:54 Assessment & Plan Assessment & Plan (1) Bipolar 1 disorder: Status: Acute Code(s): F31.9 - Bipolar disorder, unspecified (2) PTSD (post-traumatic stress disorder): Status: Acute Code(s): F43.10 - Post-traumatic stress disorder, unspecified Plan Patient is a 43-year-old male with history bipolar d/o and PTSD, who self presented to [facility] [place] [facility] due to suicidal ideation secondary to increased auditory hallucinations d/t not having access to his psychiatric medications. Plan: CV 15 minute safety checks Continue home medications Started on Risperdal 1 mg p.o. b.i.d. Referral to outpatient therapy and psychiatry Encourage groups Discharge planning 12/15: Active on unit. social with peers. pt reports he is starting to feel better than when he first came here ; pt stated, I wasn't being honest with my about having auditory hallucinations but I told her I was having them . showered. Pt is no longer on isolation d/t RSV. medication compliant. [place] level to be drawn on 12/19/23; pt aware. Continue current tx plan. 12/16: pt reports feeling down today; pt stated, there was stuff happening at my house yesterday but I know I need to be here to focused on myself before helping other people . denies SI/HI/VH/AH. attending groups. Continue current tx plan. 12/17: pt reports feeling better today; pt stated, my visited me yesterday and it went well . denies SI/HI/VH/AH. attending groups. pt reports sleeping well. [place] level to be drawn tomorrow morning. Planning for discharge on Thursday if pt continues to improve. Patient educated on: diagnosis, medication risk/benefits and therapeutic strategies Reason for continued inpatient stay Substantial Risk for: med/psych decompensation Time Spent With Patient Time: Total time managing care of this patient today ____ minutes.
--- NOTE | 2023-12-18 12:31 | PM.EVENT ---
Event Note Date of Service: 12/18/23 Event Note: Follow up consult 43-year-old male with poorly controlled diabetes who was admitted to [facility]. Patient's POCs have been persistently elevated during admission. Today patient's POC at 08:00 was 200, doubling to 418 by noon, a pattern indicative of poor adherence to a diabetic diet. Will change patient's glargine dosing to twice a day, 25 units at night and 25 units in the morning in an attempt at better control. However, patient will only achieve glycemic control if he adheres to a diabetic diet and diabetic snacking while on the unit. Time Spent With Patient Time: Total time managing care of this patient today ____ minutes.
[2023-12-18] MEDS: LORazepam 0.5 MG TABLET PO (15:17)
[2023-12-18 16:42] LABS: Glucose, Whole Blood 280 mg/dL (60-115)
[2023-12-18 19:34] VITALS: BP 133/88; PULSE 122; RESP 18; TEMP 35.9; O2SAT 96
[2023-12-18 22:02] LABS: Glucose, Whole Blood 275 mg/dL (60-115)
[2023-12-18] MEDS: hydrOXYzine HCL 50 MG TABLET 100 MG PO (22:25)
[2023-12-18 22:26] VITALS: BP 137/85
[2023-12-18] MEDS: Prazosin HCL 5 MG, Prazosin HCL 1 MG 6 MG PO (22:26)
[2023-12-18] MEDS: Lithium Carbonate 300 MG CAPSULE 900 MG PO (22:26)
[2023-12-18] MEDS: Atorvastatin Calcium 10 MG TABLET PO (22:27)
[2023-12-18] MEDS: hydrOXYzine HCL 25 MG TABLET PO (22:27)
[2023-12-18] MEDS: Insulin Glargine,Hum.rec.anlog 100 UNIT/ML 10 ML VIAL 25 UNIT SUBCUT (22:28)
[2023-12-19 07:20] VITALS: BP 136/75; PULSE 100; RESP 16; TEMP 36.7; O2SAT 98
[2023-12-19 08:13] LABS: Glucose, Whole Blood 190 mg/dL (60-115)
[2023-12-19] MEDS: hydroCHLOROthiazide 25 MG TABLET PO (08:23)
[2023-12-19] MEDS: risperiDONE 1 MG TABLET PO ×2 (08:24→22:24)
[2023-12-19] MEDS: Insulin Lispro 100 UNIT/ML 3 ML VIAL SUBCUT ×4 (08:28→22:21)
[2023-12-19] MEDS: Insulin Glargine,Hum.rec.anlog 100 UNIT/ML 10 ML VIAL 25 UNIT SUBCUT ×2 (08:29→22:21)
[2023-12-19 09:09] LABS: Lithium 0.98 mmol/L (0.60-1.20)
[2023-12-19 09:14] LABS: Anion Gap 15 (12-20); Blood Urea Nitrogen 20 mg/dL (9-16); Carbon Dioxide 31 mmol/L (22-29); Chloride 96 mmol/L (96-108); Creatinine Clr Calc Pharmacy 96.7; Estimated Glomerular Filt Rate > 60; Potassium 3.1 mmol/L (3.3-5.1); Sodium 139 mmol/L (135-145)
[2023-12-19 11:56] LABS: Glucose, Whole Blood 259 mg/dL (60-115)
[2023-12-19] MEDS: Acetaminophen 325 MG TABLET 650 MG PO ×2 (12:29→22:25)
--- NOTE | 2023-12-19 13:13 | HO.PSYCHPN ---
Subjective Subjective Date of Service: 12/19/23 Reason For Visit: PTSD; mood disorder, SI Subjective Notes: Conditional Voluntary Interim History: Pt slept through the night. He reports doing better than when he came in. He denies SI/HI. Looking forward to be discharged soon. Review of Systems Constitutional: Reports as per HPI, Reports no additional constitutional complaints, Denies chills, Denies fever(s) and Denies night sweats Eyes: Reports as per HPI, Reports no additional eye complaints, Denies blurry vision, Denies change in vision, Denies diplopia, Denies eye discharge, Denies loss of vision and Denies eye pain Reports as per HPI and Denies dizziness Cardiovascular: Reports as per HPI, Reports no additional cardiovascular complaints, Denies chest pain, Denies lightheadedness, Denies Loss of Consciousness and Denies dyspnea Respiratory: Reports as per HPI, Reports no additional respiratory complaints and Denies dyspnea Gastrointestinal: Reports as per HPI, Reports no additional gastrointestinal complaints, Denies abdominal pain, Denies melena, Denies hematochezia, Denies change in bowel habits and Denies change in stool character Genitourinary: Reports no additional male genitourinary complaints, Reports as per HPI, Denies hematuria, Denies oliguria, Denies difficulty urinating, Denies dysuria, Denies urinary frequency, Denies urinary hesitancy, Denies urinary incontinence and Denies urinary urgency Musculoskeletal: Reports no additional musculoskeletal complaints, Reports as per HPI, Denies numbness and Denies tingling Skin/Breast: Reports as per HPI Reports as per HPI, Denies dizziness, Denies loss of vision, Denies numbness and Denies tingling Psychiatric: Reports as per HPI, Reports auditory hallucinations, Denies homicidal ideation and Reports suicidal ideation Endocrine: Reports no additional endocrine complaints and Reports as per HPI Hematologic/Lymphatic: Reports no additional hematologic/lymphatic complaints and Reports as per HPI Allergic/Immunologic: Reports no additional allergic/immunologic complaints and Reports as per HPI Mental Status Exam Mental Status Exam Narrative: Pt is alert and oriented; behavior is cooperative; dressed in casual attire; mood is described as better ; eye contact appropriate; Speech is normal rate, volume and not pressured; thought process is organized and goal directed; Thought content is on tx; otherwise pertinent to relevant topics and without any delusional content, paranoid ideations or grandiosity; denies SI/HI/VH/AH. Diagnostics Vital Signs (24Hr): Vital Signs - 24 hr 12/18/23 19:34 12/18/23 22:26 12/19/23 07:20 Temperature 96.7 F L 98.1 F Pulse Rate 122 H 100 Respiratory Rate 18 16 Blood Pressure 133/88 137/85 136/75 Pulse Oximetry 96 98 Oxygen Delivery Method Room Air Room Air 12/19/23 07:20 Temperature 98.1 F Pulse Rate 100 Respiratory Rate 16 Blood Pressure 136/75 Pulse Oximetry 98 Oxygen Delivery Method Room Air BMI result Body Mass Index 31.3 Labs 12/11/23 10:31 12/19/23 08:23 Labs: Laboratory Results - last 48 hr 12/17/23 12/17/23 12/17/23 13:59 16:46 21:28 Sodium Potassium Chloride Carbon Dioxide Anion Gap BUN Creatinine Estim Creat Clear Calc Estimated GFR POC Glucose 404 H* 274 H 311 H Helper 12/18/23 12/18/23 12/18/23 08:03 11:41 16:35 Sodium Potassium Chloride Carbon Dioxide Anion Gap BUN Creatinine Estim Creat Clear Calc Estimated GFR POC Glucose 200 H 418 H* 280 H Helper 12/18/23 12/19/23 12/19/23 21:56 08:01 08:23 Sodium 139 Potassium 3.1 L Chloride 96 Carbon Dioxide 31 H Anion Gap 15 BUN 20 H Creatinine 1.15 Estim Creat Clear Calc 96.7 Estimated GFR > 60 POC Glucose 275 H 190 H Helper 0.98 12/19/23 11:52 Sodium Potassium Chloride Carbon Dioxide Anion Gap BUN Creatinine Estim Creat Clear Calc Estimated GFR POC Glucose 259 H Helper Medications Medications Current Medications Acetaminophen (Acetaminophen 325 Mg Tablet) 650 mg PO Q6H PRN PRN Reason: Headache/Pain Mild Scale (1-3) Al Hydroxide/Mg Hydroxide (Magnesium Hydrox/Alum Hydrox 30 Ml Oral.Susp) 30 ml PO Q6H PRN PRN Reason: Heartburn/Nausea Atorvastatin Calcium (Atorvastatin Calcium 10 Mg Tablet) 10 mg PO BEDTIME PENDING SALE TO [facility] Last Admin: 12/18/23 22:27 Dose: 10 mg Glucose (Glucose Gel 15 Gm Gel..Gram.) 15 gm PO Q15M PRN; Protocol PRN Reason: per Hypoglycemia Standing Ord. Hydrochlorothiazide (Hydrochlorothiazide 25 Mg Tablet) 25 mg PO DAILY [facility]; Protocol Last Admin: 12/19/23 08:23 Dose: 25 mg Hydroxyzine HCl (Hydroxyzine Hcl 25 Mg Tablet) 25 mg PO BEDTIME BENITA Last Admin: 12/18/23 22:27 Dose: 25 mg Hydroxyzine HCl (Hydroxyzine Hcl 50 Mg Tablet) 100 mg PO BEDTIME BENITA Last Admin: 12/18/23 22:25 Dose: 100 mg Insulin Glargine (Insulin Glargine,Hum.Rec.Anlog 100 Unit/Ml 10 Ml Vial) 25 unit SUBCUT BEDTIME BENITA Last Admin: 12/18/23 22:28 Dose: 25 unit Insulin Glargine (Insulin Glargine,Hum.Rec.Anlog 100 Unit/Ml 10 Ml Vial) 25 unit SUBCUT DAILY [facility]END[facility] TO [facility] Last Admin: 12/19/23 08:29 Dose: 25 unit Insulin Human Lispro (Insulin Lispro 100 Unit/Ml 3 Ml Vial) 0 unit SUBCUT QIDACHS [facility]; Protocol Last Admin: 12/19/23 12:03 Dose: 12 unit [place] Carbonate ([place] Carbonate 300 Mg Capsule) 900 mg PO BEDTIME BENITA Last Admin: 12/18/23 22:26 Dose: 900 mg Lorazepam (Lorazepam 0.5 Mg Tablet) 0.5 mg PO DAILY PRN PRN Reason: Anxiety Last Admin: 12/18/23 15:17 Dose: 0.5 mg Magnesium Hydroxide (Milk Of Magnesia 30 Ml Oral.Susp) 30 ml PO DAILY PRN PRN Reason: Constipation Nicotine (Nicotine 21 Mg Patch.Td24) 21 mg TRANSDERMA DAILY PRN PRN Reason: nicotine cravings Nicotine Polacrilex (Nicotine Polacrilex 2 Mg Gum) 4 mg BUCCAL Q2H PRN PRN Reason: Nicotine Cravings Prazosin HCl 5 mg/ Prazosin (HCl 1 mg) 6 mg PO BEDTIME [facility]; Protocol Last Admin: 12/18/23 22:26 Dose: 6 mg Risperidone (Risperidone 1 Mg Tablet) 1 mg PO BID [facility]END[facility] TO [facility] Last Admin: 12/19/23 08:24 Dose: 1 mg Trazodone HCl (Trazodone Hcl 50 Mg Tablet) 50 mg PO BEDTIME MRX1 PRN PRN Reason: Insomnia Allergies Allergies Allergy/AdvReac Type Severity Reaction Status Date / Time No Known Allergies Allergy Verified 12/11/23 09:54 Assessment & Plan Assessment & Plan (1) Bipolar 1 disorder: Status: Acute Code(s): F31.9 - Bipolar disorder, unspecified (2) PTSD (post-traumatic stress disorder): Status: Acute Code(s): F43.10 - Post-traumatic stress disorder, unspecified Plan Patient is a 43-year-old male with history bipolar d/o and PTSD, who self presented to [facility] [place] [facility] due to suicidal ideation secondary to increased auditory hallucinations d/t not having access to his psychiatric medications. Plan: CV 15 minute safety checks Continue home medications Started on Risperdal 1 mg p.o. b.i.d. Referral to outpatient therapy and psychiatry Encourage groups Discharge planning 12/15: Active on unit. social with peers. pt reports he is starting to feel better than when he first came here ; pt stated, I wasn't being honest with my about having auditory hallucinations but I told her I was having them . showered. Pt is no longer on isolation d/t RSV. medication compliant. [place] level to be drawn on 12/19/23; pt aware. Continue current tx plan. 12/16: pt reports feeling down today; pt stated, there was stuff happening at my house yesterday but I know I need to be here to focused on myself before helping other people . denies SI/HI/VH/AH. attending groups. Continue current tx plan. 12/17: pt reports feeling better today; pt stated, my visited me yesterday and it went well . denies SI/HI/VH/AH. attending groups. pt reports sleeping well. [place] level to be drawn tomorrow morning. Planning for discharge on Thursday if pt continues to improve. 12/18 continue tx. Reason for continued inpatient stay Substantial Risk for: inability to function Time Spent With Patient Time: Total time managing care of this patient today ____ minutes.
[2023-12-19 16:50] LABS: Glucose, Whole Blood 206 mg/dL (60-115)
[2023-12-19 19:21] VITALS: BP 154/86; PULSE 105; RESP 18; TEMP 36.7; O2SAT 98
[2023-12-19 21:42] LABS: Glucose, Whole Blood 335 mg/dL (60-115)
[2023-12-19 22:19] VITALS: BP 133/85; PULSE 107; RESP 18; TEMP 36.7; O2SAT 98
[2023-12-19] MEDS: LORazepam 0.5 MG TABLET PO (22:23)
[2023-12-19] MEDS: Prazosin HCL 5 MG, Prazosin HCL 1 MG 6 MG PO (22:24)
[2023-12-19] MEDS: Atorvastatin Calcium 10 MG TABLET PO (22:24)
[2023-12-19] MEDS: hydrOXYzine HCL 50 MG TABLET 100 MG PO (22:24)
[2023-12-19] MEDS: hydrOXYzine HCL 25 MG TABLET PO (22:24)
[2023-12-19] MEDS: Lithium Carbonate 300 MG CAPSULE 900 MG PO (22:25)
[2023-12-20 07:34] VITALS: BP 126/76; PULSE 88; RESP 16; TEMP 37; O2SAT 98
[2023-12-20 07:58] LABS: Glucose, Whole Blood 139 mg/dL (60-115)
[2023-12-20 08:45] VITALS: BP 126/76
[2023-12-20] MEDS: risperiDONE 1 MG TABLET PO ×2 (08:45→21:47)
[2023-12-20] MEDS: Insulin Glargine,Hum.rec.anlog 100 UNIT/ML 10 ML VIAL 25 UNIT SUBCUT ×2 (08:45→21:48)
[2023-12-20] MEDS: hydroCHLOROthiazide 25 MG TABLET PO (08:45)
[2023-12-20 11:59] LABS: Glucose, Whole Blood 249 mg/dL (60-115)
[2023-12-20] MEDS: Insulin Lispro 100 UNIT/ML 3 ML VIAL SUBCUT ×3 (12:07→21:48)
[2023-12-20 16:53] LABS: Glucose, Whole Blood 212 mg/dL (60-115)
[2023-12-20] MEDS: Acetaminophen 325 MG TABLET 650 MG PO (18:52)
--- NOTE | 2023-12-20 20:00 | P.PNPSI_ITS ---
Subjective Subjective Date of Service: 12/20/23 Reason For Visit: PTSD; mood disorder, SI Interim History: Pt slept through the night. He reports doing better than when he came in. He denies SI/HI. Looking forward to be discharged soon. Review of Systems Constitutional: Reports as per HPI, Reports no additional constitutional complaints, Denies chills, Denies fever(s) and Denies night sweats Eyes: Reports as per HPI, Reports no additional eye complaints, Denies blurry vision, Denies change in vision, Denies diplopia, Denies eye discharge, Denies loss of vision and Denies eye pain Reports as per HPI and Denies dizziness Cardiovascular: Reports as per HPI, Reports no additional cardiovascular complaints, Denies chest pain, Denies lightheadedness, Denies Loss of Consciousness and Denies dyspnea Respiratory: Reports as per HPI, Reports no additional respiratory complaints and Denies dyspnea Gastrointestinal: Reports as per HPI, Reports no additional gastrointestinal complaints, Denies abdominal pain, Denies melena, Denies hematochezia, Denies change in bowel habits and Denies change in stool character Genitourinary: Reports no additional male genitourinary complaints, Reports as per HPI, Denies hematuria, Denies oliguria, Denies difficulty urinating, Denies dysuria, Denies urinary frequency, Denies urinary hesitancy, Denies urinary incontinence and Denies urinary urgency Musculoskeletal: Reports no additional musculoskeletal complaints, Reports as per HPI, Denies numbness and Denies tingling Skin/Breast: Reports as per HPI Reports as per HPI, Denies dizziness, Denies loss of vision, Denies numbness and Denies tingling Psychiatric: Reports as per HPI, Reports auditory hallucinations, Denies homicidal ideation and Reports suicidal ideation Endocrine: Reports no additional endocrine complaints and Reports as per HPI Hematologic/Lymphatic: Reports no additional hematologic/lymphatic complaints and Reports as per HPI Allergic/Immunologic: Reports no additional allergic/immunologic complaints and Reports as per HPI Mental Status Exam Mental Status Exam Narrative: Pt is alert and oriented; behavior is cooperative; dressed in casual attire; mood is described as better ; eye contact appropriate; Speech is normal rate, volume and not pressured; thought process is organized and goal directed; Thought content is on tx; otherwise pertinent to relevant topics and without any delusional content, paranoid ideations or grandiosity; denies SI/HI/VH/AH. Diagnostics Vital Signs (24Hr): Vital Signs - 24 hr 12/19/23 22:19 12/20/23 07:34 12/20/23 08:45 Temperature 98.0 F 98.6 F Pulse Rate 107 H 88 Respiratory Rate 18 16 Blood Pressure 133/85 126/76 126/76 Pulse Oximetry 98 98 Oxygen Delivery Method Room Air Room Air BMI result Body Mass Index 31.3 Labs 12/11/23 10:31 12/19/23 08:23 Labs: Laboratory Results - last 48 hr 12/18/23 12/19/23 12/19/23 21:56 08:01 08:23 Sodium 139 Potassium 3.1 L Chloride 96 Carbon Dioxide 31 H Anion Gap 15 BUN 20 H Creatinine 1.15 Estim Creat Clear Calc 96.7 Estimated GFR > 60 POC Glucose 275 H 190 H [place] 0.98 12/19/23 12/19/23 12/19/23 11:52 16:45 21:36 Sodium Potassium Chloride Carbon Dioxide Anion Gap BUN Creatinine Estim Creat Clear Calc Estimated GFR POC Glucose 259 H 206 H 335 H [place] 12/20/23 12/20/23 12/20/23 07:48 11:54 16:46 Sodium Potassium Chloride Carbon Dioxide Anion Gap BUN Creatinine Estim Creat Clear Calc Estimated GFR POC Glucose 139 H 249 H 212 H [place] Medications Medications Current Medications Acetaminophen (Acetaminophen 325 Mg Tablet) 650 mg PO Q6H PRN PRN Reason: Headache/Pain Mild Scale (1-3) Last Admin: 12/20/23 18:52 Dose: 650 mg Al Hydroxide/Mg Hydroxide (Magnesium Hydrox/Alum Hydrox 30 Ml Oral.Susp) 30 ml PO Q6H PRN PRN Reason: Heartburn/Nausea Atorvastatin Calcium (Atorvastatin Calcium 10 Mg Tablet) 10 mg PO BEDTIME BENITA Last Admin: 12/19/23 22:24 Dose: 10 mg Glucose (Glucose Gel 15 Gm Gel..Gram.) 15 gm PO Q15M PRN; Protocol PRN Reason: per Hypoglycemia Standing Ord. Hydrochlorothiazide (Hydrochlorothiazide 25 Mg Tablet) 25 mg PO DAILY BENITA; Protocol Last Admin: 12/20/23 08:45 Dose: 25 mg Hydroxyzine HCl (Hydroxyzine Hcl 25 Mg Tablet) 25 mg PO BEDTIME [facility]ITA Last Admin: 12/19/23 22:24 Dose: 25 mg Hydroxyzine HCl (Hydroxyzine Hcl 50 Mg Tablet) 100 mg PO BEDTIME [facility] Last Admin: 12/19/23 22:24 Dose: 100 mg Insulin Glargine (Insulin Glargine,Hum.Rec.Anlog 100 Unit/Ml 10 Ml Vial) 25 unit SUBCUT BEDTIME [facility] Last Admin: 12/19/23 22:21 Dose: 25 unit Insulin Glargine (Insulin Glargine,Hum.Rec.Anlog 100 Unit/Ml 10 Ml Vial) 25 unit SUBCUT DAILY [facility] Last Admin: 12/20/23 08:45 Dose: 25 unit Insulin Human Lispro (Insulin Lispro 100 Unit/Ml 3 Ml Vial) 0 unit SUBCUT QIDACHS [facility]; Protocol Last Admin: 12/20/23 17:03 Dose: 4 unit [place] Carbonate ([place] Carbonate 300 Mg Capsule) 900 mg PO BEDTIME [facility] Last Admin: 12/19/23 22:25 Dose: 900 mg Lorazepam (Lorazepam 0.5 Mg Tablet) 0.5 mg PO DAILY PRN PRN Reason: Anxiety Last Admin: 12/19/23 22:23 Dose: 0.5 mg Magnesium Hydroxide (Milk Of Magnesia 30 Ml Oral.Susp) 30 ml PO DAILY PRN PRN Reason: Constipation Nicotine (Nicotine 21 Mg Patch.Td24) 21 mg TRANSDERMA DAILY PRN PRN Reason: nicotine cravings Nicotine Polacrilex (Nicotine Polacrilex 2 Mg Gum) 4 mg BUCCAL Q2H PRN PRN Reason: Nicotine Cravings Prazosin HCl 5 mg/ Prazosin (HCl 1 mg) 6 mg PO BEDTIME [facility]; Protocol Last Admin: 12/19/23 22:24 Dose: 6 mg Risperidone (Risperidone 1 Mg Tablet) 1 mg PO BID [facility] Last Admin: 12/20/23 08:45 Dose: 1 mg Trazodone HCl (Trazodone Hcl 50 Mg Tablet) 50 mg PO BEDTIME MRX1 PRN PRN Reason: Insomnia Allergies Allergies Allergy/AdvReac Type Severity Reaction Status Date / Time No Known Allergies Allergy Verified 12/11/23 09:54 Assessment & Plan Assessment & Plan (1) Bipolar 1 disorder: Status: Acute Code(s): F31.9 - Bipolar disorder, unspecified (2) PTSD (post-traumatic stress disorder): Status: Acute Code(s): F43.10 - Post-traumatic stress disorder, unspecified Plan Patient is a 43-year-old male with history bipolar d/o and PTSD, who self presented to [facility] ER due to suicidal ideation secondary to increased auditory hallucinations d/t not having access to his psychiatric medications. Plan: CV 15 minute safety checks Continue home medications Started on Risperdal 1 mg p.o. b.i.d. Referral to outpatient therapy and psychiatry Encourage groups Discharge planning 12/15: Active on unit. social with peers. pt reports he is starting to feel better than when he first came here ; pt stated, I wasn't being honest with my about having auditory hallucinations but I told her I was having them . showered. Pt is no longer on isolation d/t RSV. medication compliant. [place] level to be drawn on 12/19/23; pt aware. Continue current tx plan. 12/16: pt reports feeling down today; pt stated, there was stuff happening at my house yesterday but I know I need to be here to focused on myself before helping other people . denies SI/HI/VH/AH. attending groups. Continue current tx plan. 12/17: pt reports feeling better today; pt stated, my visited me yesterday and it went well . denies SI/HI/VH/AH. attending groups. pt reports sleeping well. [place] level to be drawn tomorrow morning. Planning for discharge on Thursday if pt continues to improve. 12/18 continue tx. 12/19 continue tx. Reason for continued inpatient stay Substantial Risk for: inability to function Time Spent With Patient Time: Total time managing care of this patient today ____ minutes.
[2023-12-20 20:30] LABS: Glucose, Whole Blood 258 mg/dL (60-115)
[2023-12-20 21:44] VITALS: BP 163/99; PULSE 91; RESP 16; TEMP 36.8; O2SAT 100
[2023-12-20] MEDS: Prazosin HCL 5 MG, Prazosin HCL 1 MG 6 MG PO (21:46)
[2023-12-20] MEDS: hydrOXYzine HCL 50 MG TABLET 100 MG PO (21:47)
[2023-12-20] MEDS: Lithium Carbonate 300 MG CAPSULE 900 MG PO (21:47)
[2023-12-20] MEDS: Atorvastatin Calcium 10 MG TABLET PO (21:47)
[2023-12-20] MEDS: hydrOXYzine HCL 25 MG TABLET PO (21:47)
[2023-12-21 07:55] VITALS: BP 134/85; PULSE 95; RESP 16; TEMP 36.8; O2SAT 97
[2023-12-21 08:06] LABS: Glucose, Whole Blood 214 mg/dL (60-115)
[2023-12-21] MEDS: Insulin Lispro 100 UNIT/ML 3 ML VIAL SUBCUT (08:26)
[2023-12-21] MEDS: Insulin Glargine,Hum.rec.anlog 100 UNIT/ML 10 ML VIAL 25 UNIT SUBCUT (08:26)
[2023-12-21] MEDS: hydroCHLOROthiazide 25 MG TABLET PO (08:27)
[2023-12-21] MEDS: risperiDONE 1 MG TABLET PO (08:27)
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
== END 2023-12-21 10:45 | disposition home or self-care (01) | DRG 753 ==
LOC: HO.ED 12-13 18:01 → HO.PM5 12-14 13:12 → HO.PADLT16 12-14 14:16
PROVIDERS: Emergency Medicine Emergency Medical Services; Physician Assistant Medical; Admitting Provider Clinical Nurse Specialist Psychiatric/Mental Health, Adult; Emergency Provider Emergency Medicine; PCP Nurse Practitioner Family; Responsible Provider Registered Nurse; Visit Provider Psychiatry & Neurology Psychiatry
DX: F31.9 Bipolar disorder, unspecified (principal); R45.851 Suicidal ideations; E11.65 Type 2 diabetes mellitus with hyperglycemia; F43.10 Post-traumatic stress disorder, unspecified; F17.210 Nicotine dependence, cigarettes, uncomplicated; Z71.6 Tobacco abuse counseling; Z79.4 Long term (current) use of insulin; Z79.899 Other long term (current) drug therapy
CPT/HCPCS: 0241U; 36415; 80051; 80053; 80061; 80178; 80307; 81001; 82565; 82607; 82746; 82947; 83036; 83735; 84439; 84443; 84520; 85025; 93005; 99285; J1200; J1630; J2060; S9485

== ENCOUNTER → 2023-12-14 08:32 | Outpatient (BNV) | payer OTHER, SELFPAY | PROVIDERS: Admitting Provider Clinical Nurse Specialist Psychiatric/Mental Health, Adult; Emergency Provider Emergency Medicine; PCP Nurse Practitioner Family; Responsible Provider Registered Nurse; Visit Provider Internal Medicine Cardiovascular Disease | DX: R00.0 Tachycardia, unspecified (principal) | CPT/HCPCS: 93010 ==

== ENCOUNTER → 2023-12-14 12:35 | Outpatient (BNV) | payer OTHER, SELFPAY | PROVIDERS: Admitting Provider Clinical Nurse Specialist Psychiatric/Mental Health, Adult; Emergency Provider Emergency Medicine; PCP Nurse Practitioner Family; Responsible Provider Registered Nurse; Visit Provider Registered Nurse | DX: F31.4 Bipolar disorder, current episode depressed, severe, without psychotic features (principal); F43.11 Post-traumatic stress disorder, acute | CPT/HCPCS: 99231; 99232; 99233; 99499 ==

== ENCOUNTER 2024-04-23 09:07 | Emergency (ER) | payer OTHER, SELFPAY ==
[2024-04-23 09:16] VITALS: BP 181/89; PULSE 88; RESP 24; TEMP 37.1; O2SAT 100; BMI 33.8
--- OUTSIDE RECORDS SUMMARY | 2024-04-23 09:27 | XMS_ITS | Patient Health Record ---
Author Organization [facility] Address [address], [place] [id number] Care Team Providers Care Supervisor Paper Products Name Role Phone No, PCP Primary Care Provider Unavailabl e [facility] Unavailable [phone] Cass Solomon Unavailable [phone] Reason For Referral No Information Encounters Encounter Location Date Provider Diagnosis [facility] [address] [place] [id number] 2023 Cass Solomon [facility] [address] [place] [id number] 08/06/2023 Cass Solomon Plan Of Treatment No Information Insurance Providers Payer Name Payer Address Payer Phone Subscriber Number Group Number Insured Name Patient Relationship to Insured Coverage Start Date Coverage End Date [facility] [employer] [address] [place] [address] [id number] Kev Hernández Self - patient is the insured 4
--- OUTSIDE RECORDS SUMMARY | 2024-04-23 09:27 | XMS_ITS ---
Author Organization [facility] Address [address], [place] [id number] Care Team Providers Care General Doc Name Role Phone No, PCP Primary Care Provider Unavailabl e [facility] Unavailable [phone] Cass Solomon Unavailable [phone] REASON FOR VISIT Apply for [facility] Insurance Encounters Encounter Location Date Provider Diagnosis [facility] [address] [place] [id number] 2023 Cass Solomon Plan Of Treatment No Information Progress Notes * Kev HERNÁNDEZDOB:1980 ( 43 yo M)Acc No.[id number] Case Management Patient:?Kev Hernández Provider:?Cass Solomon :1980???Age:43 Y???Sex:Male Mansoor e:2023 Address:[address] [place], [place] [id number] Pcp:PCP No Subjective: * Chief Complaints: * ???1. Apply for [facility]. * HPI: ???Social Service:?Action Taken?[facility]? [employer] paper application was completed with client and faxed over to [employer] [facility]. 07/30/23 gd2.? * Medical History:? Objective: Assessment: Plan: * Treatment: * Images: Billing Information: * Visit Code:? * Procedure Codes:? Care Plan Details* * Sign off status: Completed true * Provider:Lynne Solomon Date:?2023 Generated for Viktor flores/Ty/eTransmitting on:?04/23/2024 09:26 AM EDT History and Physical Notes * HPI (History of Present Illness) Category Sub-Category Detail Notes Social Service Action Taken [facility] : [employer] p aper application was completed with client and faxed over to [facility] [facility]. 07/30/23 gd2
--- OUTSIDE RECORDS SUMMARY | 2024-04-23 09:27 | XMS_ITS | Clinical Summary ---
Author Organization [facility] Address [address] [place] [address] Phone Care Team Providers Care [employer] C[employer] Swager Name Role Phone Fox Vail NP Primary Care Provider [phone] Allergies No known active allergies Medications atorvastatin (LIPITOR) 20 mg tablet Take 1 tablet (20 mg total) by mouth 1 (one) time each day. 4 Active blood sugar diagnostic (FreeStyle Lite Strips) test strip USE TO TEST BLOOD SUGAR ONCE PER DAY OR WITH SYMPTOMS 4 Active FreeStyle Lite Meter monitoring kit USE 1 KIT DIRECTED DIRECTED DIRECTED CHECK BLOOD SUGARS BEFORE MEALS AND BEDTIME 4 Active Trulicity 1.5 mg/0.5 mL pen injector injection INJECT 0.5 ML SUBCUTANEOUS INJECTION EVERY WEEK,X30 DAYS,INSTR:ROTATE INJECTION SITES 5 Active hydroCHLOROthi azide (HYDRODIURIL) 25 mg tablet Take 1 tablet (25 mg total) by mouth 1 (one) time each day. 4 Active hydrOXYzine pamoate (VISTARIL) 50 mg capsule TAKE 2 CAPSULES BY MOUTH AT NIGHT (TOTAL DOSE OF 125MG) 4 Active hydrOXYzine pamoate (VISTARIL) 25 mg capsule Take 1 capsule (25 mg total) by mouth at bedtime. 5 Active Lantus Solostar U-100 Insulin 100 unit/mL (3 mL) injection pen INJECT 40 UNITS SUBCUTANEOUSLY DAILY AT BEDTIME X30 DAYS 4 Active FreeStyle Lancets 28 gauge lancets USE TO TEST BLOOD SUGAR ONCE PER DAY OR WITH SYMPTOMS 4 Active lithium 300 mg capsule Take 3 capsules (900 mg total) by mouth. at bedtime 5 Active prazosin (MINIPRESS) 2 mg capsule Take 3 capsules (6 mg total) by mouth. at bedtime 4 Active risperiDONE (RisperDAL) 1 mg tablet Take 1 tablet (1 mg total) by mouth 2 (two) times a day. 5 Active LORazepam (ATIVAN) 1 mg tablet Take 1 tablet (1 mg total) by mouth every 6 (six) hours if needed for anxiety. 4 Active Active Problems No known active problems Encounters Date Type Department Care Team Description 03/15/2024 2:00 PM EST Consult Orthopedics - [facility] [address] [place], [place] [phone] Aleksander Beltre PA Shoulder instability, right (Primary Dx); Bilateral shoulder pain; Tendinitis of both shoulders 03/15/2024 1:30 PM EST - 03/15/2024 11:59 PM EST Hospital Encounter XRAY - [place] [id number] [place], [place] [phone] Chronic pain of both shoulders Discharge Disposition: Home or Self Care from Last 3 Months Social History Tobacco Use Types Packs/Day Years Used Date Smoking Tobacco: Every Day Cigarettes 1 35.2 Started: 02/09/1989 Passive Smoke Exposure: Current Smokeless Tobacco: Never Tobacco Cessation:Ready to Q uit: Not Asked; Counseling Given: Not Answered Alcohol Use Standard Drinks/Week Comments Not Currently 0 (1 standard drink = 0.6 oz pur e alcohol) Sex and Gender Information Value Date Recorded Sex Assigned at Not on file Legal Sex Male 8:40 PM EST Gender Identity Not on file Sexual Orientation Not on file Obstetrics History Last Filed Vital Signs Vital Sign Reading Time Taken Comments Blood Pressure - - Pulse - - Temperature - - Respiratory Rate 16 03/15/2024 2:00 PM EST Oxygen Saturation - - Inhaled Oxygen Concentration - - Weight 117 kg (257 lb) 03/15/2024 2:00 PM EST Height 180.3 cm (5' 11 ) 03/15/2024 2:00 PM EST Body Mass Index 35.84 03/15/2024 2:00 PM EST Plan of Treatment Upcoming Encounters Date Type Department Care Team (Late st Contact Info) Description 05/13/2024 1:00 PM EDT Office Visit Orthopedics - [facility] [address] [place] [phone] Aleksander Beltre PA [address] [place] [address] Health Maintenance Due Date Last Done Comments Diabetes: Annual GFR (Glomerular Filtration Rate) 1980 Diabetes: Annual Foot Exam 07/29/1989 Diabetes: Annual Retina Eye Exam 07/29/1989 Pneumococcal Vaccine: Pediatrics (0 to 5 Years) and At-Risk Patients (6 to 64 Years) (2 of 2 - PCV) 05/18/2011 05/17/2010 Cholesterol Screening (Lipid Panel) 03/06/2023 Depression Screening 03/06/2023 HIV Screening 03/06/2023 Hepatitis C Screening 03/06/2023 Social Influencers of Health Screening 03/06/2023 COVID-19 Vaccine (3 - 2023-2 5 season) 2023 12/05/2020, 11/05/2020 Influenza Vaccine (#1) 2023 12/07/2014 Diabetes: Annual Urine Albumin-Creatinine Ratio (uACR) 03/15/2024 Diabetes: Blood Sugar Contro l Test (HGBA1C) 03/15/2024 Hypertension/CHF/CAD Annual BMP Blood Test 03/15/2024 DTaP,Tdap,and Td Vaccines (3 - Td or Tdap) 04/30/2031 04/29/2021, 09/21/2009 MMR Vaccines Aged Out 04/24/2013 No longer eligi ble based on patient's age to complete this topic Hepatitis A Vaccines Aged Out 10/15/2013, 05/28/2013, 04/24/2013 No longer eligible based on patient's age to complete this topic Hepatitis B Vaccines Completed 10/15/2013, 05/28/2013, 04/24/2013 HIB Vaccines Aged Out No longer eligi ble based on patient's age to complete this topic HPV Vaccines Aged Out No longer eligi ble based on patient's age to complete this topic IPV Vaccines Aged Out No longer eligi ble based on patient's age to complete this topic Meningococcal ACWY Vaccine Aged Out N o longer eligible based on patient's age to complete this topic Meningococcal B Vacine Aged Out No lo nger eligible based on patient's age to complete this topic RSV Immunization Patients Under 20 months Aged Out No longer eligible b ased on patient's age to complete this topic Varicella Vaccines Aged Out No longer eligible based on patient's age to complete this topic Procedures Procedure Name Priority Date/Time Associated Diagnosis Comments MD ARTHROCENTESIS/ASPI RATION/INJECTION MAJOR JOINT/BURSA W/O U/S GUIDANCE Routine 03/15/2024 2:00 PM EST Tendinitis of both shoulders XR SHOULDER 2+ VIEWS BILAT Routine 03/15/2024 1:55 PM EST Chronic pain of both shoulders from Last 3 Months Results * MD ARTHROCENTESIS/ASPIRATION/INJECTION MAJOR JOINT/BURSA W/O U/S GUIDANCE (03/15/2024 2:00 PM EST) Narrative Liu Silva MD - 03/15/2024 2:00 PM EST RONALDO Collins ? 03/15/2024 ??2:32 PM L Inj/Asp: R subacromial bursa Indications: pain Details: 22 G needle, posterior approach Medications: 4 mL lidocaine 1 %; 80 mg methylPREDNISolone acetate 80 mg/mL Outcome: tolerated well, no immediate complications Informed Consent: ??Site: ??Shoulder ??Laterality: ??Right ??Relevant images/test results available and reviewed: yes ?Health status cleared: ??Yes ??Procedure/treatment, purpose, treatment alternatives, risks/potential complications and benefits explained: yes ?Risk/complications/benefits details: ??Risks include but are not limited to: The treatment may not accomplish the desired results. ??Additionally bleeding, infection, damage to tendon, nerve, cartilage, muscle; thinning or lightening of the skin in the area of injection; flushing or redness of the face, elevated blood pressure or blood sugar, allergic reaction, rash, increased pain Benefits include relief of inflammation and pain ??Patient questions answered: yes ?Patient agrees, verbalizes understanding, and wants to proceed: yes ?Consent given by: ??Patient ??Informed consent discussion completed by Physician/MARJORIE with patient: ?? Verbal ??Pre-procedure timeout performed: yes ?? us Aleksander HIGGINS IN CLINIC/BEDSIDE ORDERABLES Fin al Result * XR Shoulder 2+ Views bilat (03/15/2024 1:55 PM EST) Anatomical Region Laterality Modality Upper Extremities, Shoulder Bilateral Radi ographic Imaging 03/15/2024 6:26 PM EST Impressions 03/15/2024 6:31 PM EST Right: No acute fracture or dislocation. Left: No acute fracture or dislocation. ??Probable sequela from remote trauma at acromioclavicular joint. -------- FINAL REPORT -------- Dictated By: Naman Akers Dictated Date: 03/15/2024 18:26 ET Assigned Physician: Naman Akers Reviewed and Electronically Signed By: Naman Akers Signed Date: 03/15/2024 18:31 ET Workstation ID: [id number] Transcribed By: Self Edit Transcribed Date: 03/15/2024 18:26 ET Narrative 03/15/2024 6:31 PM EST XR SHOULDER 2+ VIEWS BILAT Reason: shoulder pain Bilateral Comparison: None FINDINGS: Right: Moderate hypertrophic degenerative change at acromioclavicular joint. ??No fracture. ??No dislocation. ??No abnormal soft tissue calcification. Left: Widening of the acromioclavicular joint space and small calcifications in the vicinity suggest sequela from remote trauma. ??Glenohumeral joint is intact. Procedure Note Naman Akers MD - 03/15/2024 XR SHOULDER 2+ VIEWS BILAT Reason: shoulder pain Bilateral Comparison: None FINDINGS: Right: Moderate hypertrophic degenerative change at acromioclavicularjoint. No fracture. No dislocation. No abnormal soft tissuecalcification. Left: Widening of the acromioclavicular joint space and smallcalcifications in the vicinity suggest sequela from remote trauma.Glenohumeral joint is intact. IMPRESSION: Right: No acute fracture or dislocation. Left: No acute fracture or dislocation. Probable sequela from remotetrauma at acromioclavicular joint. -------- FINAL REPORT -------- Dictated By: Naman Akers Dictated Date: 03/15/2024 18:26 ET Assigned Physician: Naman Akers Reviewed and Electronically Signed By: Naman Akers Signed Date: 03/15/2024 18:31 ET Workstation ID: [id number] Transcribed By: Self Edit Transcribed Date: 03/15/2024 18:26 ET Aleksander HIGGINS IMG XR PROCEDURES Final Result from Last 3 Months Insurance [employer] [employer] Care Teams [employer] Cutter [employer] Swager Relationship Specialty Start Date End Date Fox Vail NP [address] [place] [address] [place] [phone] PCP - General Family Medicine 03/11/24
--- OUTSIDE RECORDS SUMMARY | 2024-04-23 09:27 | XMS_ITS ---
Author Organization [facility] Address [address] [place] [id number] Care Team Providers Care Client Experience Consultant Name Role Phone No, PCP Primary Care Provider Unavailabl e [facility] Unavailable [phone] Cass Solomon Unavailable [phone] REASON FOR VISIT Apply for SNAP Benefits Encounters Encounter Location Date Provider Diagnosis [facility] [address] [place] [id number] 08/06/2023 Cass Solomon Plan Of Treatment No Information Progress Notes * Kev HERNÁNDEZDOB:1980 ( 43 yo M)Acc No.[id number]:08/06/2023 Case Management Patient:?Kev Hernández Provider:?Cass Solomon :1980???Age:43 Y???Sex:Male Mansoor e:08/06/2023 Address:[address] [place], [place] [phone] Pcp:PCP No Subjective: * Chief Complaints: * ???1. Apply for SNAP Benefit s. * HPI: ???Social Service:?Action Taken?SNAP application? SNAP Benefits was completed with client online. I explained to to him that DTA will contact him in 5 business days to finish the inake by phone. 08/06/23 gd2.? * Medical History:? Objective: Assessment: Plan: * Treatment: * Images: Billing Information: * Visit Code:? * Procedure Codes:? Care Plan Details* * Sign off status: Completed true * Provider:Lynne Solomon Date:?08/06/2023 Generated for Viktor flores/Ty/eTransmitting on:?04/23/2024 09:26 AM EDT History and Physical Notes * HPI (History of Present Illness) Category Sub-Category Detail Notes Social Service Action Taken SNAP application: SNAP [employer] was completed with client online. I explained to to him that DTA will contact him in 5 business days to finish the inake by phone. 08/06/23 gd2
[2024-04-23 09:28] LABS: Glucose, Whole Blood 184 mg/dL (60-115)
[2024-04-23 09:33] LABS: MANUAL DIFF FLAG NO
[2024-04-23 09:34] LABS: Basophils Absolute Auto 0.1 X10*3/uL (0.0-0.2); Basophils Percent Auto 0.6 % (0-2); Eosinophils Absolute Auto 0.5 X10*3/uL (0.0-0.4); Eosinophils Percent Auto 3.7 % (0-4); Hematocrit 45.8 % (42.0-52.0); Hemoglobin 15.8 g/dl (14.0-18.0); Imm Gran Abs Auto 0.07 X10*3/uL (0.00-0.03); Imm Gran Pct Auto 0.5 % (0.0-0.4); Lymphocytes Percent Auto 23.4 % (20-40); Mean Corpuscular HGB Conc 34.5 g/dl (31.0-36.0); Mean Corpuscular Volume 84.2 fL (80.0-98.0); Monocytes Absolute Auto 0.7 X10*3/uL (0.1-1.2); Monocytes Percent Auto 5.5 % (2-11); Neutrophils Absolute Auto 8.6 x10*3/uL (2.0-8.3); Neutrophils Percent Auto 66.3 % (45-73); Platelet Count 311 X10*3/uL (160-400); Red Blood Count 5.44 X10*6/uL (4.60-5.80); Red Cell Distribution Width 13.9 % (11.0-16.0)
[2024-04-23 09:58] LABS: Alanine Aminotransferase 31 U/L (0-40); Albumin Level 4.9 g/dL (3.5-5.0); Alkaline Phosphatase 71 U/L (39-117); Anion Gap 20 (12-20); Aspartate Amino Transferase 22 U/L (5-37); Beta-Hydroxybutyrate 0.19 mmol/L (0.02-0.27); Bilirubin Total 0.4 mg/dL (0.0-1.0); Blood Urea Nitrogen 21 mg/dL (9-16); Calcium 10.1 mg/dL (8.4-10.2); Carbon Dioxide 20 mmol/L (22-29); Chloride 105 mmol/L (96-108); Creatinine Clr Calc Pharmacy 115.4; Estimated Glomerular Filt Rate > 60; Glucose Random 229 mg/dL (60-115); Potassium 3.9 mmol/L (3.3-5.1); Sodium 141 mmol/L (135-145)
[2024-04-23 10:16] VITALS: BP 169/78
[2024-04-23 10:45] LABS: Lipase 27 U/L (8-78)
--- NOTE | 2024-04-23 10:52 | ED_ITS ---
HPI - Nausea/Vomiting/Diarrhea General Chief complaint: Nausea/Vomiting/Diarrhea Stated complaint: vomiting Time Seen by Provider: 04/23/24 10:37 Source: patient Mode of arrival: ambulatory Limitations: no limitations History of Present Illness ED Provider: Gareth Sanders DO HPI Narrative: 43-year-old male with past medical history of insulin-dependent diabetes, bipolar disorder, PTSD and schizophrenia presents to the emergency department with acute episodes of nausea and vomiting starting this morning. Patient states his symptoms started acutely at 06:00 this morning. He states he had Frisian food last night but his is not sick with similar symptoms. He reports that his vomiting has been red but he denies clots, coffee-ground emesis, hematochezia, melena or hematuria. He denies any other urinary symptoms or fevers but reports sweats and chills as well as reflux symptoms without other chest pain or difficulty breathing. He states he does smoke cannabis and cigarettes but denies alcohol use. Related Data Home Medications ?Medication ?Instructions ?Recorded ?Confirmed hydrochlorothiazide 25 mg tablet 25 mg PO DAILY 12/11/23 12/11/23 insulin glargine 100 unit/mL (3 40 unit subcut BEDTIME 12/11/23 12/11/23 mL) subcutaneous pen (Lantus Solostar U-100 Insulin) lisinopril 10 mg tablet 10 mg PO BEDTIME 12/12/23 12/12/23 simvastatin 20 mg tablet 20 mg PO BEDTIME 12/12/23 12/12/23 Previous Rx's ?Medication ?Instructions ?Recorded hydroxyzine pamoate 100 mg capsule 100 mg PO BEDTIME 30 days #30 caps 12/21/23 hydroxyzine pamoate 25 mg capsule 25 mg PO BEDTIME 30 days #30 caps 12/21/23 lithium carbonate 300 mg capsule 900 mg (3 x 300 mg) PO BEDTIME 30 12/21/23 days #90 caps prazosin 2 mg capsule 6 mg PO BEDTIME 30 days #90 caps 12/21/23 risperidone 1 mg tablet 1 mg PO BID 30 days #60 tabs 12/21/23 ondansetron 4 mg disintegrating 4 mg PO Q8H PRN nausea and 04/23/24 tablet vomiting #9 tabs Allergies Allergy/AdvReac Type Severity Reaction Status Date / Time No Known Allergies Allergy Verified 04/23/24 09:19 Review of Systems 2 Review of Systems: Yes all other systems are reviewed and are negative [facility] Past Medical History Medical History (Updated 04/23/24 @ 12:57 by Gareth Sanders DO) Suicidal ideation Social History Social History Household Members: Family Housing: Apartment Do you presently have visiting nurse or other home services: No Alcohol intake: current Alcohol intake frequency: holidays/special occasions only Patient Tobacco Use Status: Current everyday Tobacco user Tobacco use type: Cigarette Cigarette Packs Per Day: 1 Cigarettes Per Day: 20.0 Years Smoked: 30 Second Hand Smoke Exposure: No Substance Use Type: Marijuana Advance Directives: No Advance Directives Information Provided: No service: No Sexual orientation: Straight/Heterosexual Physical Exam 2 Vital Signs: Vital Signs: Last Vital Signs Temp 98.8 F 04/23/24 09:16 Pulse 88 04/23/24 09:16 Resp 24 H 04/23/24 09:16 BP 169/78 H 04/23/24 10:16 Pulse Ox 100 04/23/24 09:16 O2 Del Method Room Air 04/23/24 09:16 BMI result Body Mass Index 33.8 Constitutional: Alert, oriented, speaking in full sentences, appears unwell, actively retching at the bedside HEENT: Normocephalic, atraumatic. Eyes: PERRL, EOMI Neck: Supple, nontender Chest: No chest wall tenderness Respiratory: Lungs clear to auscultation, no increased work of breathing Cardio: Regular rate and rhythm, no murmur, 2+ radial and DP pulses symmetrically GI: Soft, nondistended, mildly diffusely tender to palpation Back: Normal range of motion, nontender Skin: No rash, no lesions Neuro: Alert and oriented to person, place and time, moves all 4 extremities, no focal deficits Extremities: No swelling or tenderness, full range of motion Psych: Calm, alert and cooperative, appropriate behavior Medications Administered Discontinued Medications Generic Name Dose Route Start Last Admin Trade Name Freq PRN Reason Stop Dose Admin Sodium Chloride 1,000 mls @ 999 mls/hr 04/23/24 11:30 04/23/24 11:34 Ns IV 04/23/24 12:30 999 mls/hr .Q1H1M BENITA Administration Lorazepam 1 mg 04/23/24 12:10 04/23/24 12:21 Lorazepam 2 Mg/Ml Vial IVPUSH 04/23/24 12:11 1 mg ONCE ONE Administration Ondansetron HCl 4 mg 04/23/24 10:55 04/23/24 11:01 Ondansetron Odt 4 Mg Tab.Ruslandis KATLYNINGU 04/23/24 10:56 4 mg ONCE ONE Administration Prochlorperazine Edisylate 10 mg 04/23/24 11:14 04/23/24 11:25 Prochlorperazine Edisylate 10 Mg/2 Ml Vial IVPUSH 04/23/24 11:15 10 mg ONCE ONE Administration Medical Decision Making Medical Decision Making [facility] Narrative: Patient presenting with acute episodes of nausea and vomiting. Has mild hypertension today which is likely related to the vomiting episodes. He did not improve with sublingual ondansetron and specifically declines offered haloperidol due to consideration for cannabinoid hyperemesis syndrome. He does accept droperidol and 2.5 mg IV have been ordered. He has no signs of DKA per labs. We will perform ECG to further evaluate GERD symptoms but I do not suspect ACS. This is likely a viral gastritis versus cannabinoid hyperemesis syndrome. We will monitor for improvement in symptoms with likely discharge to home. I personally evaluated the patient is emesis and saw no bilious emesis or bloody emesis. I do not suspect hematemesis or dangerous etiology of the vomiting such as esophageal varices or peptic ulcer. Droperidol is unavailable at this time in the emergency department and therefore Compazine 10 mg IV has been ordered. This markedly improved the patient's nausea and vomiting but he is still a. Somewhat anxious and was given lorazepam 1 mg IV for further nausea and anxiety control. This markedly improved the patient as well and he has been able to tolerate detail without difficulty. He is breathing comfortably and repeat evaluation shows no abdominal tenderness. At this time it is possible he had a food-borne illness from Frisian food last night versus a viral gastritis. We will prescribe Zofran as needed and provided return precautions for any worsening condition. Patient agrees with this plan. He has been able to stand and ambulate without difficulty. Admission/Observation Consideration of admission/observation: Escalation of care including admission/observation considered Lab Data [facility] Lab Attestation statement: I reviewed the patient's lab results. Mild hyperglycemia at 02:29, otherwise unremarkable chemistry without signs of DKA, mild leukocytosis at 13 which is neutrophilic predominance likely in the setting of vomiting, otherwise unremarkable CBC. 04/23/24 09:28 04/23/24 09:28 Labs: Lab Results 04/23/24 04/23/24 04/23/24 Range/Units 09:24 09:28 12:07 WBC 13.0 H (4.8-10.8) X10*3/uL RBC 5.44 (4.60-5.80) X10*6/uL Hgb 15.8 (14.0-18.0) g/dl Hct 45.8 (42.0-52.0) % MCV 84.2 (80.0-98.0) fL MCH 29.0 (27.0-33.0) pg MCHC 34.5 (31.0-36.0) g/dl RDW 13.9 (11.0-16.0) % Plt Count 311 (160-400) X10*3/uL MPV 9.0 L (9.4-12.4) fL Immature Gran % (Auto) 0.5 H (0.0-0.4) % Neut % (Auto) 66.3 (45-73) % Lymph % (Auto) 23.4 (20-40) % [place] % (Auto) 5.5 (2-11) % Eos % (Auto) 3.7 (0-4) % Baso % (Auto) 0.6 (0-2) % Lymph # (Auto) 3.0 (1.2-4.9) X10*3/uL [place] # (Auto) 0.7 (0.1-1.2) X10*3/uL Eos # (Auto) 0.5 H (0.0-0.4) X10*3/uL Baso # (Auto) 0.1 (0.0-0.2) X10*3/uL Abs Immat Gran (auto) 0.07 H (0.00-0.03) X10*3/uL Absolute Neuts (auto) 8.6 H (2.0-8.3) x10*3/uL Absolute Nucleated RBC 0.000 (0.0-0.012) X10*3/uL Nucleated RBC % (auto) 0.0 (0.0-0.2) /100WBC Sodium 141 (135-145) mmol/L Potassium 3.9 D (3.3-5.1) mmol/L Chloride 105 (96-108) mmol/L Carbon Dioxide 20 L (22-29) mmol/L Anion Gap 20 (12-20) BUN 21 H (9-16) mg/dL Creatinine 1.03 (0.5-1.4) mg/dL Estim Creat Clear Calc 115.4 Estimated GFR > 60 POC Glucose 184 H (60-115) mg/dL Random Glucose 229 H (60-115) mg/dL Calcium 10.1 (8.4-10.2) mg/dL Total Bilirubin 0.4 (0.0-1.0) mg/dL AST 22 (5-37) U/L ALT 31 (0-40) U/L Alkaline Phosphatase 71 (39-117) U/L Total Protein 9.0 H (6.5-8.0) g/dL Albumin 4.9 (3.5-5.0) g/dL Lipase 27 (8-78) U/L Beta-Hydroxybutyrate 0.19 (0.02-0.27) mmol/L Urine Color Yellow Urine Appearance Clear Urine pH 8.5 (5.0-9.0) Ur Specific [place] 1.025 (1.005-1.025) Urine Protein 100 (2+) H (Neg-Trace) mg/dL Urine Glucose (UA) 500 H (Negative) mg/dL Urine Ketones 40 (Negative) mg/dL Urine Blood Negative (Negative) Urine Nitrite Negative (Negative) Ur Leukocyte Esterase Negative (Negative) Urine RBC 0-2 (0-2) /HPF Urine WBC 0-5 (0-5) /HPF Ur Squamous Epith Cells 0-2 (0-2) /HPF Urine Bacteria None Seen (None Seen) Hyaline Casts 0-2 (0-2) /LPF Independent Interpretation I performed an independent interpretation of an: EKG Interpretation: Normal sinus rhythm at 100 beats per minute, borderline left axis deviation, unremarkable intervals, no diagnostic ST or T-wave abnormalities. Compared to ECG dated 12/14/2023 there are no significant changes. Discharge Plan Discharge Clinical Impression: Nausea & vomiting Qualifiers: Vomiting type: unspecified Qualified Code(s): R11.2 - Nausea with vomiting, unspecified Patient Disposition: Home, Self-Care Instructions: Acute Nausea and Vomiting (ED) Additional Instructions: based on your labs, vital signs and physical exam it does not appear to be a dangerous cause of the nausea and vomiting today. We treated you with Zofran, Compazine and Ativan which improved her symptoms. We prescribed a course of Zofran which she can take as needed up to every 8 hours for recurrent severe nausea or vomiting episodes. If despite taking the Zofran you have persistent vomiting, noticed any bright red blood or coffee-ground vomit or any signs of bleeding with diarrhea such as bright red or black stool, or development of worsening abdominal pain or fevers over 100 degrees F, please return to the emergency department. Your symptoms may be due to a viral syndrome or the food you ate last night. Prescriptions: New ondansetron 4 mg tablet,disintegrating 4 mg PO Q8H PRN (Reason: nausea and vomiting) Qty: 9 0RF No Action hydrochlorothiazide 25 mg tablet 25 mg PO DAILY insulin glargine [Lantus Solostar U-100 Insulin] 100 unit/mL (3 mL) insulin pen 40 unit subcut BEDTIME Patient Comments: patient reports he has only taken 40 units at bedtime simvastatin 20 mg tablet 20 mg PO BEDTIME lisinopril 10 mg tablet 10 mg PO BEDTIME risperidone 1 mg Tablet 1 mg PO BID 30 Days Qty: 60 0RF prazosin 2 mg Capsule 6 mg PO BEDTIME 30 Days Qty: 90 0RF Protocol: Hold for SBP< HOLD for SBP < : 90 hydroxyzine pamoate 100 mg capsule 100 mg PO BEDTIME 30 Days Qty: 30 0RF lithium carbonate 300 mg capsule 900 mg PO BEDTIME 30 Days Qty: 90 0RF hydroxyzine pamoate 25 mg capsule 25 mg PO BEDTIME 30 Days Qty: 30 0RF Rx Instructions: with 100mg Print Language: Albanian
--- NOTE | 2024-04-23 11:00 | MHC.EDTECH ---
EKG was not done patient wouldn't lay on his back
[2024-04-23] MEDS: Ondansetron ODT 4 MG TAB.RAPDIS TRANSLINGU (11:01)
--- NOTE | 2024-04-23 11:04 | ECG_ITS ---
Test Reason : MED CLEARANCE Blood Pressure : */* mmHG Vent. Rate : 100 BPM Atrial Rate : 100 BPM P-R Int : 170 ms QRS Dur : 76 ms QT Int : 338 ms P-R-T Axes : 50 -22 35 degrees QTcB Int : 436 ms Normal sinus rhythm Normal ECG When compared with ECG of 14-Dec-2023 12:52, No significant change was found Referred By: Gareth Sanders Electronically Signed By: LYLE ORO
[2024-04-23] MEDS: Prochlorperazine Edisylate 10 MG/2 ML VIAL IVPUSH (11:25)
[2024-04-23] MEDS: 0.9 % Sodium Chloride 1,000 ML 999 ML IV (11:34)
[2024-04-23 12:15] LABS: Appearance Urine Clear; Color Urine Yellow; Glucose Urine UA 500 mg/dL (Negative); Leukocyte Esterase Urine Negative (Negative); Nitrite Urine Negative (Negative); PH 8.5 (5.0-9.0); Specific Gravity - Urine 1.025 (1.005-1.025); UMIC TRIGGER UACC YES; Urine Blood Negative (Negative); Urine Ketones 40 mg/dL (Negative); Urine Protein 100 (2+) mg/dL (Neg-Trace)
[2024-04-23 12:18] LABS: Bacteria Urine None Seen (None Seen); Hyaline Casts Urine 0-2 /LPF (0-2); RBC Urine 0-2 /HPF (0-2); Squamous Epithelial Cell Urine 0-2 /HPF (0-2); WBC Urine 0-5 /HPF (0-5)
[2024-04-23] MEDS: LORazepam 2 MG/ML VIAL 1 MG IVPUSH (12:21)
[2024-04-23 14:00] VITALS: BP 164/77; PULSE 95; RESP 16; TEMP 36.6; O2SAT 98
== END 2024-04-23 14:01 | disposition home or self-care (01) ==
PROVIDERS: Emergency Provider Emergency Medicine; PCP Nurse Practitioner Family
DX: R11.2 Nausea with vomiting, unspecified (principal); I10 Essential (primary) hypertension; F41.9 Anxiety disorder, unspecified; E11.9 Type 2 diabetes mellitus without complications; F43.10 Post-traumatic stress disorder, unspecified; F31.9 Bipolar disorder, unspecified; F12.90 Cannabis use, unspecified, uncomplicated; F17.210 Nicotine dependence, cigarettes, uncomplicated; Z79.4 Long term (current) use of insulin; Z79.02 Long term (current) use of antithrombotics/antiplatelets
CPT/HCPCS: 36415; 80053; 81001; 82010; 82947; 83690; 85025; 93005; 96374; 96375; 99284; J0737; J2060

== ENCOUNTER → 2024-04-23 11:04 | Outpatient (BNV) | payer OTHER, SELFPAY | PROVIDERS: Emergency Provider Emergency Medicine; PCP Nurse Practitioner Family; Visit Provider Internal Medicine | DX: Z13.6 Encounter for screening for cardiovascular disorders (principal) | CPT/HCPCS: 93010 ==

== ENCOUNTER 2024-04-25 09:00 | Emergency (ER) | payer OTHER, SELFPAY ==
--- NOTE | 2024-04-25 | ECG_ITS ---
Test Reason : N/V Blood Pressure : */* mmHG Vent. Rate : 76 BPM Atrial Rate : 76 BPM P-R Int : 148 ms QRS Dur : 78 ms QT Int : 360 ms P-R-T Axes : 55 -19 25 degrees QTcB Int : 405 ms Normal sinus rhythm Normal ECG When compared with ECG of 23-Apr-2024 13:14, No significant change was found Referred By: Generic ED Physician Electronically Signed By: Viet Recinos
--- NOTE | ~2024-04-25 | CT_ITS ---
EXAMINATION: CT ABDOMEN AND PELVIS WITH CONTRAST CLINICAL INFORMATION: Diffuse abdominal pain. Nausea. Vomiting. COMPARISON: None available. TECHNIQUE: Multidetector volumetric images were obtained from the superior aspect of the liver through the pubic symphysis following administration 85 mL of Omnipaque 350 intravenous contrast. Sagittal and coronal reformatted images were obtained on the technologist's workstation. Oral contrast: No This CT examination was performed using dose optimization techniques as appropriate, variously including the following: *Automated exposure control *Adjustment of mA and/or kV according to patient size (this includes techniques or standardized protocols for targeted exams where dose is matched to indication/reason for exam; i.e. extremities or head) *Use of iterative reconstruction technique DLP: 650 mGy centimeter. FINDINGS: LUNG BASES: No gross acute airspace disease. LIVER, GALLBLADDER, AND BILIARY TREE: Liver measures 20 cm. No focal mass. Portal veins, hepatic veins and intrahepatic portion of the IVC are patent. No intrahepatic biliary ductal dilatation. Small hyperdensity layering in the gallbladder lumen. No pericholecystic fluid collection or gallbladder wall thickening. Common bile duct measures 3 mm. PANCREAS: No focal mass. No peripancreatic fluid collection. No main pancreatic ductal dilatation. SPLEEN: 6 cm. No focal lesion. Small accessory spleen. ADRENAL GLANDS: No nodular lesions. KIDNEYS AND URETERS: No renal mass or hydronephrosis. No gross nephrolithiasis. BLADDER: Fluid-filled. GASTROINTESTINAL TRACT: Collapsed appearance of the large intestine with questionable wall thickening and mild pericolonic edema pattern. There is mesenteric edema pattern. No intestinal obstruction pattern. No pneumatosis intestinalis. No pneumoperitoneum. Appendix is normal with the likely inspissated secretions. Mild wall thickening, terminal ileum. No ascites. No peripheral enhancing fluid collection, peritoneal cavity.. ABDOMINAL WALL: Small fat-containing umbilical hernia. LYMPH NODES: No lymphadenopathy. VASCULAR: No aneurysm or dissection, abdominal aorta. PELVIC VISCERA: Nonenlarged. OSSEOUS STRUCTURES: Castellvi type III sacralization. Spina bifida occulta S1.. CT/CT abdomen pelvis w IV con IMPRESSION: Consider acute colitis versus inflammatory bowel disease. Hepatomegaly and likely steatosis. Cholelithiasis. Small fat-containing umbilical hernia. Fleischner guidelines were followed. Electronically signed by: Naeem López MD 04/25/2024 02:52 PM EDT RP
[2024-04-25 09:09] VITALS: BP 193/95; PULSE 83; RESP 20; TEMP 37; O2SAT 100; BMI 30.5
[2024-04-25] MEDS: Ondansetron ODT 4 MG TAB.RAPDIS TRANSLINGU (09:17)
[2024-04-25 09:38] LABS: Appearance Urine Clear; Color Urine Yellow; Glucose Urine UA 250 mg/dL (Negative); Leukocyte Esterase Urine Small (1+) (Negative); Nitrite Urine Negative (Negative); PH 5.5 (5.0-9.0); Specific Gravity - Urine 1.025 (1.005-1.025); UMIC TRIGGER UACC YES; Urine Blood Negative (Negative); Urine Ketones >=160 mg/dL (Negative); Urine Protein 100 (2+) mg/dL (Neg-Trace)
[2024-04-25 09:41] LABS: Bacteria Urine None Seen (None Seen); Hyaline Casts Urine 0-2 /LPF (0-2); RBC Urine 0-2 /HPF (0-2); UACC Culture Trigger YES
[2024-04-25 09:54] LABS: Glucose, Whole Blood 216 mg/dL (60-115)
--- NOTE | 2024-04-25 10:03 | ED.NAVMDI ---
HPI - Nausea/Vomiting/Diarrhea General Chief complaint: Nausea/Vomiting/Diarrhea Stated complaint: vomiting Time Seen by Provider: 04/25/24 09:32 History of Present Illness HPI Narrative: Patient is a 43-year-old male with a history of diabetes. History of marijuana use. Presented today with having nausea vomiting. Was here 2 days ago for similar symptoms. Patient claims he smokes marijuana on a daily basis. Feels extremely nauseous vomiting. Patient ate some [place] food yesterday. Was vomiting some red substance but is not blood there was no coffee-ground. Had some mild abdominal pain that is diffuse. Patient denies any coughing congestion upper respiratory symptoms. No diaphoresis. Positive generalized malaise weakness. Has a history of DKA in the past. Has a history of smoking. No pain on urination. Related Data Home Medications ?Medication ?Instructions ?Recorded ?Confirmed hydrochlorothiazide 25 mg tablet 25 mg PO DAILY 12/11/23 12/11/23 insulin glargine 100 unit/mL (3 40 unit subcut BEDTIME 12/11/23 12/11/23 mL) subcutaneous pen (Lantus Solostar U-100 Insulin) lisinopril 10 mg tablet 10 mg PO BEDTIME 12/12/23 12/12/23 simvastatin 20 mg tablet 20 mg PO BEDTIME 12/12/23 12/12/23 Previous Rx's ?Medication ?Instructions ?Recorded hydroxyzine pamoate 100 mg capsule 100 mg PO BEDTIME 30 days #30 caps 12/21/23 hydroxyzine pamoate 25 mg capsule 25 mg PO BEDTIME 30 days #30 caps 12/21/23 lithium carbonate 300 mg capsule 900 mg (3 x 300 mg) PO BEDTIME 30 12/21/23 days #90 caps prazosin 2 mg capsule 6 mg PO BEDTIME 30 days #90 caps 12/21/23 risperidone 1 mg tablet 1 mg PO BID 30 days #60 tabs 12/21/23 ondansetron 4 mg disintegrating 4 mg PO Q8H PRN nausea and 04/23/24 tablet vomiting #9 tabs ondansetron 4 mg disintegrating 4 mg PO TID PRN nausea and 04/25/24 tablet vomiting 5 days #10 tabs Allergies Allergy/AdvReac Type Severity Reaction Status Date / Time No Known Allergies Allergy Verified 04/25/24 09:13 Review of Systems Review of Systems: Positive abdominal pain, nausea PMFSH Past Medical History Attestation statement: The following information was validated with the patient. Medical History Suicidal ideation Social History Social History Household Members: Family Housing: Apartment Do you presently have visiting nurse or other home services: No Alcohol intake: current Alcohol intake frequency: holidays/special occasions only Patient Tobacco Use Status: Current everyday Tobacco user Tobacco use type: Cigarette Cigarette Packs Per Day: 1 Cigarettes Per Day: 20.0 Years Smoked: 30 Second Hand Smoke Exposure: No Substance Use Type: Marijuana Advance Directives: Yes Advance Directives Information Provided: Yes Advance Directives on File: No service: No Sexual orientation: Straight/Heterosexual Physical Exam Vital Signs: Vital Signs: Last Vital Signs Temp 98.6 F 04/25/24 09:09 Pulse 86 04/25/24 13:32 Resp 18 04/25/24 13:32 BP 167/99 H 04/25/24 13:32 Pulse Ox 100 04/25/24 13:32 O2 Del Method Room Air 04/25/24 13:32 BMI result Body Mass Index 30.5 Appearance: Alert. Oriented X3. No acute distress. Eyes: Pupils equal, round and reactive to light. ENT: Pharynx normal. Neck: Normal inspection. Neck supple. No lymph nodes noted. No crepitus CVS: Normal heart rate and rhythm. Pulses normal. Normal S1 and S2 Respiratory: No respiratory distress. Breath sounds normal. No Wheezing. No rales Abdomen: Soft and nontender. No rigidity. No distention. good BS x4 Skin: Skin warm and dry. Normal skin color. Normal skin turgor. Extremities: No lower extremity edema. Neurovascular intact to all extremities. No Lacerations. No Rash Neuro: Oriented X 3. No motor deficit. No sensory deficit. Moving all extermities. No slurred speech Medications Administered Discontinued Medications Generic Name Dose Route Start Last Admin Trade Name Freq PRN Reason Stop Dose Admin Sodium Chloride 1,000 mls @ 999 mls/hr 04/25/24 10:00 04/25/24 13:16 Ns IV 04/25/24 11:00 Infused .Q1H1M BENITA Infusion Sodium Chloride 1,000 mls @ 999 mls/hr 04/25/24 10:00 04/25/24 13:16 Ns IV 04/25/24 11:00 Infused .Q1H1M BENITA Infusion Iohexol 85 ml 04/25/24 14:23 04/25/24 14:24 Iohexol 350 Mg/Ml 100 Ml Infus..Btl IV 04/25/24 14:24 85 ml ONCE ONE Administration Lorazepam 1 mg 04/25/24 13:23 04/25/24 13:28 Lorazepam 2 Mg/Ml Vial IVPUSH 04/25/24 13:24 1 mg ONCE ONE Administration Metoclopramide HCl 10 mg 04/25/24 09:57 04/25/24 10:36 Metoclopramide Hcl 10 Mg/2 Ml Vial IVPUSH 04/25/24 09:58 10 mg ONCE ONE Administration Ondansetron HCl 4 mg 04/25/24 09:15 04/25/24 09:17 Ondansetron Odt 4 Mg Tab.Rapdis TRANSLINGU 04/25/24 09:16 4 mg ONCE ONE Administration Medical Decision Making Medical Decision Making [facility] Narrative: Patient continue with nausea vomiting. Has a history of diabetes. Patient's sugar today is less than 200. There is no anion gap. However patient does have beta hydroxybutyrate. 2 L of IV fluid was given. Suggested for patient to get additional IV fluids. A CT scan was done. CT scan by radiology's interpretation no evidence of obstruction abscess there is evidence for until colitis. Patient states understanding. Does not want additional IV fluid does not want repeat labs does not want further treatment wants to rip out his own IV and leave. Understood the risks including dehydration diabetic ketoacidosis electrolyte disturbance significant loss of current lifestyle patient left against medical advice. Differential Diagnosis Differential Diagnoses: The differential diagnosis associated with the presentation includes Gastroenteritis, diabetic ketoacidosis, hyperemesis secondary to marijuana use Admission/Observation Consideration of admission/observation: Escalation of care including admission/observation considered Lab Data [facility] Lab Attestation statement: I reviewed the patient's lab results. 04/25/24 10:18 04/25/24 13:28 Labs: Lab Results 04/25/24 04/25/24 04/25/24 Range/Units 09:28 09:50 10:18 WBC 12.0 H (4.8-10.8) X10*3/uL RBC 5.53 (4.60-5.80) X10*6/uL Hgb 16.2 (14.0-18.0) g/dl Hct 46.6 (42.0-52.0) % MCV 84.3 (80.0-98.0) fL MCH 29.3 (27.0-33.0) pg MCHC 34.8 (31.0-36.0) g/dl RDW 13.9 (11.0-16.0) % Plt Count 285 (160-400) X10*3/uL MPV 9.1 L (9.4-12.4) fL Immature Gran % (Auto) 0.5 H (0.0-0.4) % Neut % (Auto) 73.0 (45-73) % Lymph % (Auto) 17.5 L (20-40) % [place] % (Auto) 6.3 (2-11) % Eos % (Auto) 2.3 (0-4) % Baso % (Auto) 0.4 (0-2) % Lymph # (Auto) 2.1 (1.2-4.9) X10*3/uL [place] # (Auto) 0.8 (0.1-1.2) X10*3/uL Eos # (Auto) 0.3 (0.0-0.4) X10*3/uL Baso # (Auto) 0.1 (0.0-0.2) X10*3/uL Abs Immat Gran (auto) 0.06 H (0.00-0.03) X10*3/uL Absolute Neuts (auto) 8.8 H (2.0-8.3) x10*3/uL Absolute Nucleated RBC 0.000 (0.0-0.012) X10*3/uL Nucleated RBC % (auto) 0.0 (0.0-0.2) /100WBC Sodium (135-145) mmol/L Potassium (3.3-5.1) mmol/L Chloride (96-108) mmol/L Carbon Dioxide (22-29) mmol/L Anion Gap (12-20) BUN (9-16) mg/dL Creatinine (0.5-1.4) mg/dL Estim Creat Clear Calc Estimated GFR POC Glucose 216 H (60-115) mg/dL Random Glucose (60-115) mg/dL Calcium (8.4-10.2) mg/dL Magnesium (1.6-2.6) mg/dL Total Bilirubin (0.0-1.0) mg/dL AST (5-37) U/L ALT (0-40) U/L Alkaline Phosphatase (39-117) U/L Total Protein (6.5-8.0) g/dL Albumin (3.5-5.0) g/dL Beta-Hydroxybutyrate (0.02-0.27) mmol/L Urine Color Yellow Urine Appearance Clear Urine pH 5.5 (5.0-9.0) Ur Specific [place] 1.025 (1.005-1.025) Urine Protein 100 (2+) H (Neg-Trace) mg/dL Urine Glucose (UA) 250 H (Negative) mg/dL Urine Ketones >=160 (Negative) mg/dL Urine Blood Negative (Negative) Urine Nitrite Negative (Negative) Ur Leukocyte Esterase Small (1+) H (Negative) Urine RBC 0-2 (0-2) /HPF Urine WBC 11-20 H (0-5) /HPF Ur Squamous Epith Cells 3-5 (0-2) /HPF Urine Bacteria None Seen (None Seen) Hyaline Casts 0-2 (0-2) /LPF Urine Opiates Screen Not Detected (Not Detect) Ur Buprenorphine Scrn Not Detected (Not Detect) ng/mL Ur Oxycodone Screen Not Detected (Not Detect) ng/mL Urine Methadone Screen Not Detected (Not Detect) ng/mL Urine Fentanyl Screen Not Detected (Not Detect) Ur Barbiturates Screen Not Detected (Not Detect) Ur Phencyclidine Scrn Not Detected (Not Detect) Ur Amphetamines Screen Not Detected (Not Detect) U Benzodiazepines Scrn Not Detected (Not Detect) Urine Cocaine Screen Not Detected (Not Detect) U Marijuana (THC) Screen POSITIVE H (Not Detect) 04/25/24 Range/Units 13:28 WBC (4.8-10.8) X10*3/uL RBC (4.60-5.80) X10*6/uL Hgb (14.0-18.0) g/dl Hct (42.0-52.0) % MCV (80.0-98.0) fL MCH (27.0-33.0) pg MCHC (31.0-36.0) g/dl RDW (11.0-16.0) % Plt Count (160-400) X10*3/uL MPV (9.4-12.4) fL Immature Gran % (Auto) (0.0-0.4) % Neut % (Auto) (45-73) % Lymph % (Auto) (20-40) % [place] % (Auto) (2-11) % Eos % (Auto) (0-4) % Baso % (Auto) (0-2) % Lymph # (Auto) (1.2-4.9) X10*3/uL [place] # (Auto) (0.1-1.2) X10*3/uL Eos # (Auto) (0.0-0.4) X10*3/uL Baso # (Auto) (0.0-0.2) X10*3/uL Abs Immat Gran (auto) (0.00-0.03) X10*3/uL Absolute Neuts (auto) (2.0-8.3) x10*3/uL Absolute Nucleated RBC (0.0-0.012) X10*3/uL Nucleated RBC % (auto) (0.0-0.2) /100WBC Sodium 138 (135-145) mmol/L Potassium 3.5 (3.3-5.1) mmol/L Chloride 107 (96-108) mmol/L Carbon Dioxide 20 L (22-29) mmol/L Anion Gap 15 (12-20) BUN 13 (9-16) mg/dL Creatinine 0.83 (0.5-1.4) mg/dL Estim Creat Clear Calc 148.3 Estimated GFR > 60 POC Glucose (60-115) mg/dL Random Glucose 166 H (60-115) mg/dL Calcium 9.2 D (8.4-10.2) mg/dL Magnesium 1.6 (1.6-2.6) mg/dL Total Bilirubin 0.8 (0.0-1.0) mg/dL AST 25 (5-37) U/L ALT 28 (0-40) U/L Alkaline Phosphatase 73 (39-117) U/L Total Protein 8.3 H (6.5-8.0) g/dL Albumin 4.5 (3.5-5.0) g/dL Beta-Hydroxybutyrate 0.64 H (0.02-0.27) mmol/L Urine Color Urine Appearance Urine pH (5.0-9.0) Ur Specific [place] (1.005-1.025) Urine Protein (Neg-Trace) mg/dL Urine Glucose (UA) (Negative) mg/dL Urine Ketones (Negative) mg/dL Urine Blood (Negative) Urine Nitrite (Negative) Ur Leukocyte Esterase (Negative) Urine RBC (0-2) /HPF Urine WBC (0-5) /HPF Ur Squamous Epith Cells (0-2) /HPF Urine Bacteria (None Seen) Hyaline Casts (0-2) /LPF Urine Opiates Screen (Not Detect) Ur Buprenorphine Scrn (Not Detect) ng/mL Ur Oxycodone Screen (Not Detect) ng/mL Urine Methadone Screen (Not Detect) ng/mL Urine Fentanyl Screen (Not Detect) Ur Barbiturates Screen (Not Detect) Ur Phencyclidine Scrn (Not Detect) Ur Amphetamines Screen (Not Detect) U Benzodiazepines Scrn (Not Detect) Urine Cocaine Screen (Not Detect) U Marijuana (THC) Screen (Not Detect) Independent Interpretation I performed an independent interpretation of an: CT Scan ( no gross obstruction noted) Radiology Impression Discussion of test interpretation with radiology: I have reviewed the radiologist's reading. Independent Historian Clinical information obtained from an independent historian. History obtained from or confirmed by: Spouse External Record Review External record reviewed: Inpatient record outpatient medication record reviewed Chronic Conditions Patient?s care impacted by: Diabetes and Hypertension marijuana use Social Determinants Patient?s care significantly limited by Social Determinants of Health including: Problems related to primary support group Critical Care Time Critical Care Time Critical Care Time: Yes Total Critical Care Time: 40 Attestation: I have personally provided 40 minutes of critical care time exclusive of time spent on separately billable procedures. Time includes review of lab data, radiology results, discussion with consultants, and monitoring for potential decompensation. Interventions were performed as documented above Discharge Plan Discharge Clinical Impression: Diabetic ketoacidosis, Dehydration, Vomiting Patient Disposition: Left Against Medical Advice Instructions: Dehydration (ED), Diabetic Ketoacidosis (DC) Prescriptions: New ondansetron 4 mg tablet,disintegrating 4 mg PO TID PRN (Reason: nausea and vomiting) 5 Days Qty: 10 0RF No Action ondansetron 4 mg tablet,disintegrating 4 mg PO Q8H PRN (Reason: nausea and vomiting) Qty: 9 0RF hydrochlorothiazide 25 mg tablet 25 mg PO DAILY insulin glargine [Lantus Solostar U-100 Insulin] 100 unit/mL (3 mL) insulin pen 40 unit subcut BEDTIME Patient Comments: patient reports he has only taken 40 units at bedtime simvastatin 20 mg tablet 20 mg PO BEDTIME lisinopril 10 mg tablet 10 mg PO BEDTIME risperidone 1 mg Tablet 1 mg PO BID 30 Days Qty: 60 0RF prazosin 2 mg Capsule 6 mg PO BEDTIME 30 Days Qty: 90 0RF Protocol: Hold for SBP< HOLD for SBP < : 90 hydroxyzine pamoate 100 mg capsule 100 mg PO BEDTIME 30 Days Qty: 30 0RF lithium carbonate 300 mg capsule 900 mg PO BEDTIME 30 Days Qty: 90 0RF hydroxyzine pamoate 25 mg capsule 25 mg PO BEDTIME 30 Days Qty: 30 0RF Rx Instructions: with 100mg Referrals: Fox Vail NP [Primary Care Provider] - 04/27/24 Stand Alone Forms: Against Medical Advice Print Language: Welsh
[2024-04-25 10:15] LABS: Amphetamine Screen Urine Not Detected (Not Detect); Barbiturates, Urine Not Detected (Not Detect); Benzodiazepines Screen Urine Not Detected (Not Detect); Buprenorphine Scr Not Detected (Not Detect); Cannabinoid Screen Urine POSITIVE (Not Detect); Cocaine Screen Urine Not Detected (Not Detect); Fentanyl, urine Not Detected (Not Detect); Methadone Screen, Urine Not Detected (Not Detect); Opiate Screen Urine Not Detected (Not Detect); Oxycodone Screen Urine Not Detected (Not Detect); Phencyclidine Screen Urine Not Detected (Not Detect)
[2024-04-25 10:25] LABS: MANUAL DIFF FLAG NO
[2024-04-25 10:26] LABS: Basophils Absolute Auto 0.1 X10*3/uL (0.0-0.2); Basophils Percent Auto 0.4 % (0-2); Eosinophils Absolute Auto 0.3 X10*3/uL (0.0-0.4); Eosinophils Percent Auto 2.3 % (0-4); Hematocrit 46.6 % (42.0-52.0); Hemoglobin 16.2 g/dl (14.0-18.0); Imm Gran Abs Auto 0.06 X10*3/uL (0.00-0.03); Imm Gran Pct Auto 0.5 % (0.0-0.4); Lymphocytes Absolute Auto 2.1 X10*3/uL (1.2-4.9); Lymphocytes Percent Auto 17.5 % (20-40); Mean Corpuscular HGB Conc 34.8 g/dl (31.0-36.0); Mean Corpuscular Hemoglobin 29.3 pg (27.0-33.0); Mean Corpuscular Volume 84.3 fL (80.0-98.0); Mean Platelet Volume 9.1 fL (9.4-12.4); Monocytes Absolute Auto 0.8 X10*3/uL (0.1-1.2); Monocytes Percent Auto 6.3 % (2-11); Neutrophils Absolute Auto 8.8 x10*3/uL (2.0-8.3); Platelet Count 285 X10*3/uL (160-400); Red Blood Count 5.53 X10*6/uL (4.60-5.80); Red Cell Distribution Width 13.9 % (11.0-16.0)
[2024-04-25] MEDS: Metoclopramide HCl 10 MG/2 ML VIAL IVPUSH (10:36)
[2024-04-25] MEDS: 0.9 % Sodium Chloride 1,000 ML 999 ML IV ×2 (10:37)
[2024-04-25 10:49] LABS: Beta-Hydroxybutyrate 0.64 mmol/L (0.02-0.27); Bilirubin Total 0.8 mg/dL (0.0-1.0); Estimated Glomerular Filt Rate > 60
[2024-04-25 10:56] VITALS: BP 190/97; PULSE 72; RESP 20; O2SAT 95
--- NOTE | 2024-04-25 12:32 | PC.NURSE ---
Patient is agitated/frustrated. Occasionally swearing. Stated Can I just get my damn CT scan or whatever already?! Every time I come to this hospital, you guys say that you don't find anything. I need you guys to do something! Dr. Jimenez aware. NS infusing. Visitor at bedside. Dry heaving, anxious. Recollect via fingerstick by [employer]. Spoke with lab regarding specimen handling. 2 Green gel tubes were drawn by Christine Moreno RN prior to the start of this RN's shift. One of those tubes hemolyzed, per lab. Second tube misplaced, per lab. Recollect drawn by [employer] and sent. Jonathon's specimen filled the tube quickly and easily. This RN called to follow up on this specimen and was told that they didn't get another green gel tube. Spoke with Ale Allred (lab supervisor chemical) regarding multiple misplaced specimens on this patient and was told that this tube also hemolyzed. I advised that phlebotomy draw the patient due to difficult/multiple sticks, however, Ale stated that there are no available phlebotomists for this draw and was advised to do a fingerstick draw , which was recently sent, results pending. Dr. Jimenez & Christine (media services coordinator) aware of this incident. Incident report filed.
[2024-04-25] MEDS: LORazepam 2 MG/ML VIAL 1 MG IVPUSH (13:28)
[2024-04-25 13:32] VITALS: BP 167/99; PULSE 86; RESP 18; O2SAT 100
--- NOTE | 2024-04-25 13:42 | PC.NURSE ---
Fingerstick recollect also hemolyzed, per lab. Ale Allred (lab front line supervisor) was contacted and recollect was drawn. Results pending. Dr. Jimenez aware. Patient medicated for anxiety by Luis M GRIJALVA and situation was explained to the patient & visitor.
[2024-04-25 13:58] LABS: Alanine Aminotransferase 28 U/L (0-40); Albumin Level 4.5 g/dL (3.5-5.0); Alkaline Phosphatase 73 U/L (39-117); Anion Gap 15 (12-20); Aspartate Amino Transferase 25 U/L (5-37); Blood Urea Nitrogen 13 mg/dL (9-16); Calcium 9.2 mg/dL (8.4-10.2); Carbon Dioxide 20 mmol/L (22-29); Chloride 107 mmol/L (96-108); Creatinine Clr Calc Pharmacy 148.3; Glucose Random 166 mg/dL (60-115); Magnesium 1.6 mg/dL (1.6-2.6); Potassium 3.5 mmol/L (3.3-5.1); Sodium 138 mmol/L (135-145); Total Protein 8.3 g/dL (6.5-8.0)
[2024-04-25] MEDS: iohexoL 350 MG/ML 100 ML INFUS..BTL 85 ML IV (14:24)
--- NOTE | 2024-04-25 15:40 | PC.NURSE ---
Dr. Jimenez and I spoke with the patient and his girlfriend. Patient was relaxing in bed comfortably, but refusing to stay for additional liter of fluids. Patient wants to go home, requested that IV access be removed. Preparing for discharge home.
[2024-04-25 15:53] VITALS: BP 167/99; PULSE 86; RESP 18; TEMP 37.2; O2SAT 100
== END 2024-04-25 15:53 | disposition left against medical advice (07) ==
PROVIDERS: Emergency Provider Emergency Medicine Emergency Medical Services; PCP Nurse Practitioner Family
DX: E11.10 Type 2 diabetes mellitus with ketoacidosis without coma (principal); R11.2 Nausea with vomiting, unspecified; E86.0 Dehydration; R53.81 Other malaise; F12.90 Cannabis use, unspecified, uncomplicated; R10.2 Pelvic and perineal pain; F17.210 Nicotine dependence, cigarettes, uncomplicated; Z79.899 Other long term (current) drug therapy; Z51.81 Encounter for therapeutic drug level monitoring
CPT/HCPCS: 36415; 74177; 80053; 80307; 81001; 82010; 82947; 83735; 85025; 87086; 93005; 96361; 96374; 96375; 99284; J2060; J2765; Q9967

== ENCOUNTER → 2024-04-25 09:58 | Outpatient (BNV) | payer OTHER, SELFPAY | PROVIDERS: Emergency Provider Emergency Medicine Emergency Medical Services; PCP Nurse Practitioner Family; Visit Provider Radiology Diagnostic Radiology | DX: K80.20 Calculus of gallbladder without cholecystitis without obstruction (principal); R16.0 Hepatomegaly, not elsewhere classified; K52.9 Noninfective gastroenteritis and colitis, unspecified | CPT/HCPCS: 74177 ==

== ENCOUNTER → 2024-04-25 10:25 | Outpatient (BNV) | payer OTHER, SELFPAY | PROVIDERS: Emergency Provider Emergency Medicine Emergency Medical Services; PCP Nurse Practitioner Family; Visit Provider Internal Medicine Cardiovascular Disease | DX: R11.2 Nausea with vomiting, unspecified (principal) | CPT/HCPCS: 93010 ==